=== PATIENT | male | born 1990 | race Caucasian/White ===

== ENCOUNTER 2019-11-16 23:16 | Emergency (ER) | payer MEDICARE, MEDICAID, OTHER, SELFPAY ==
[2019-11-16 23:25] VITALS: BP 110/63; PULSE 80; RESP 18; TEMP 36.8; O2SAT 97; BMI 38.9
--- NOTE | 2019-11-17 | XR_ITS ---
EXAMINATION: XR ANKLE, RIGHT CLINICAL INFORMATION: Ankle sprain COMPARISON: None TECHNIQUE: AP, lateral, and mortise views of the right ankle. FINDINGS: There is no fracture or dislocation. The ankle mortise is congruent. There is lateral soft tissue swelling. Possible small ankle joint effusion. IMPRESSION: Lateral soft tissue swelling. No fracture or malalignment.
--- NOTE | 2019-11-17 00:51 | ED.LOWEXIN ---
HPI - Extremity Injury (Lower) General Chief Complaint: Extremity Injury, Lower Stated Complaint: ANKLE INJURY WORK Time Seen by Provider: 11/17/19 00:45 Source: patient Mode of arrival: ambulatory History of Present Illness HPI Narrative: 28-year-old male states was at work and stepped in a hole and twisted ankle. Patient able to stand however is very painful. Pain to ankle without distal numbness. denies knee pain or hip pain MD complaint: ankle injury Onset (ago): hour(s) Injury: Right: ankle Type of Injury: eversion Severity scale (1-10): 4 Context: fall Related Data Allergies Allergy/AdvReac Type Severity Reaction Status Date / Time shrimp [SHRIMP] Allergy Severe SWELLING Unverified 10/24/19 16:26 DUST Allergy Unknown UNKNOWN Uncoded 10/24/19 16:26 shrimps Allergy Unknown Uncoded 08/15/16 00:00 Review of Systems Review of Systems: Constitutional : No Weight loss, No Fever, No Chills, No Night Sweats, No Fatigue, No Malaise ENT/Mouth : No Hearing loss, No Ear Pain, No Nasal Congestion, No Sinus Pain, No Hoarseness, No sore throat, No Rhinorrhea, No Swallowing Difficulty Eyes: No Eye Pain, No Swelling, No Redness, No Foreign Body, No Discharge, No Vision Changes Cardiovascular : No Chest Pain, No SOB, No Dyspnea on Exertion, No Orthopnea, No Edema, No Palpitations Respiratory : No Cough, No Sputum, No Wheezing, No Smoke Exposure, No Dyspnea Gastrointestinal : No Nausea, No Vomiting, No Diarrhea, No Constipation, No abdominal Pain, No Hematochezia, No Melena Genitourinary : no irregular bleeding, No Dysuria, No Urinary Frequency, No Hematuria, No Urinary Incontinence, No Urgency, No Flank Pain, No Urinary Flow Changes, No Hesitancy Musculoskeletal : positive joint pain, No Myalgias, positive Joint Swelling Skin : No Skin Lesions, No rash Neuro : No Weakness, No Numbness, No Paresthesias, No Loss of Consciousness, No Dizziness, No Headache Psych : No Anxiety/Panic, No Depression, No SI/HI/AH/VH, No Social Issues, Heme/Lymph: No Bruising, No Bleeding,No Lymphadenopathy Endocrine : No Polyuria, No Polydipsia, No Temperature Intolerance PMFSH Past Medical History Medical History Cardiac defibrillator in place Family History Family History (Updated 11/17/19 @ 00:52 by Alex Walker DO) Other Family history non-contributory Social History Social History (Updated 11/17/19 @ 00:52 by Alex Walker DO) Household Members: Family Advance Directives: No Advance Directives Information Provided: No Physical Exam Vital Signs: Vital Signs: Vital Signs Temp Pulse Resp BP Pulse Ox 11/16/19 23:25 98.3 F 80 18 110/63 97 Body Mass Index 38.9 vital signs reviewed Appearance: Alert. Oriented X3. No acute distress. Eyes: Pupils equal, round and reactive to light. ENT: Pharynx normal. Neck: Normal inspection. Neck supple. No lymph nodes noted. No crepitus CVS: Normal heart rate and rhythm. Pulses normal. Normal S1 and S2 Respiratory: No respiratory distress. Breath sounds normal. No Wheezing. No rales Abdomen: Soft and nontender. No rigidity. No distention. good BS x4 Skin: Skin warm and dry. Normal skin color. Normal skin turgor. Extremities: right ankle lower extremity edema. no deformity. Neurovascular intact to all extremities. No Lacerations. No Rash Neuro: Oriented X 3. No motor deficit. No sensory deficit. Moving all extermities. No slurred speech. Procedures Orthopedic Splinting/Casting Injury #1: Side: right Lower Extremity Injury Location: ankle Lower Extremity Immobilizer: posterior splint Other Orthopedic Equipment: crutches Additional Comments: post splint evaluation done by me neurovascular intact MDM - Extremity Injury (Lower) Medical Records Attestation: I reviewed the patient's medical records. Lab Data Attestation: I reviewed the patient's lab results. Discharge Plan Discharge Clinical Impression: Right ankle sprain Qualifiers: Encounter type: initial encounter Involved ligament of ankle: unspecified ligament Qualified Code(s): S93.401A - Sprain of unspecified ligament of right ankle, initial encounter Patient Disposition: Home, Self-Care Instructions: Ankle Sprain (ED) Additional Instructions: Thank you for visiting the emergency department today. If your symptoms worsen or do not resolve completely please return to the emergency department immediately or call 911. if he have any questions please call your primary care physician Referrals: [facility] [Primary Care Provider] - 2 days
[2019-11-17] MEDS: Acetaminophen 325 MG TABLET 650 MG PO (01:22)
[2019-11-17] MEDS: NaPROXEN 500 MG TABLET PO (01:23)
== END 2019-11-17 01:34 | disposition home or self-care (01) ==
PROVIDERS: Emergency Provider Emergency Medicine
DX: S93.401A Sprain of unspecified ligament of right ankle, initial encounter (principal); X50.1XXA Overexertion from prolonged static or awkward postures, initial encounter; Y93.01 Activity, walking, marching and hiking; Y92.9 Unspecified place or not applicable; Y99.0 Civilian activity done for income or pay
CPT/HCPCS: 29515; 73600; 99283

== ENCOUNTER 2019-12-25 12:00 | Outpatient (RCR) | payer OTHER, MEDICARE, MEDICAID, SELFPAY | END 2019-12-30 14:20 | disposition other institution (70) | LOC: HO.PT 12:00 | PROVIDERS: PCP Emergency Medicine; Visit Provider Emergency Medicine | DX: S93.401D Sprain of unspecified ligament of right ankle, subsequent encounter (principal); X58.XXXD Exposure to other specified factors, subsequent encounter; Y99.0 Civilian activity done for income or pay | CPT/HCPCS: 97110; 97112; 97161 ==

== ENCOUNTER 2020-07-13 19:56 | Emergency (ER) | payer MEDICARE, MEDICAID, SELFPAY | END 2020-07-13 20:55 | disposition left against medical advice (07) | PROVIDERS: Emergency Provider Emergency Medicine | DX: L03.019 Cellulitis of unspecified finger (principal) | CPT/HCPCS: 99281 ==

== ENCOUNTER 2021-10-23 20:31 | Inpatient (IN) | payer MEDICARE, MEDICAID, SELFPAY ==
--- NOTE | ~2021-10-23 | XR_ITS ---
EXAMINATION: CR CHEST CLINICAL INFORMATION: Shortness of breath. COMPARISON: Chest x-ray dated 10/23/2021. TECHNIQUE: AP upright portable view of the chest was obtained. FINDINGS: EKG leads overlie the chest. Right atrial pacer lead and right ventricular AICD lead are unchanged in position. The left pectoral pacemaker generator overlies the left mid lung, obscuring assessment. Lungs are symmetrically expanded without focal or acute pulmonary process seen. No effusion or pneumothorax. Bony structures are unremarkable. XR/XR chest 1V IMPRESSION: Unchanged appearance of the chest with no acute cardiopulmonary process seen.
--- NOTE | ~2021-10-23 | XR_ITS ---
EXAMINATION: XR CHEST CLINICAL INFORMATION: Chest pain. COMPARISON: Chest radiograph dated from 03/06/2017. TECHNIQUE: Frontal view of the chest was obtained. FINDINGS: Left-sided pacer/AICD in similar positioning to prior. Stable appearance of the cardiomediastinal silhouette. No focal airspace opacity, pleural effusion or pneumothorax. No acute osseous abnormalities. The visualized upper abdomen is within normal limits. XR/XR chest 1V IMPRESSION: No acute cardiopulmonary findings.
[2021-10-23 20:45] VITALS: BP 122/65; PULSE 80
[2021-10-23 20:46] VITALS: BP 106/70; PULSE 80; TEMP 37; BMI 35.9
--- NOTE | 2021-10-23 20:50 | ECG_ITS ---
Test Reason : PALPITATIONS Blood Pressure : / mmHG Vent. Rate : 080 BPM Atrial Rate : 080 BPM P-R Int : 260 ms QRS Dur : 098 ms QT Int : 406 ms P-R-T Axes : 042 -11 -35 degrees QTc Int : 468 ms Atrial-paced rhythm with prolonged AV conduction Minimal voltage criteria for LVH, may be normal variant ( R in aVL ) ST & T wave abnormality, consider anterolateral ischemia Prolonged QT Abnormal ECG When compared with ECG of 23-OCT-2021 20:56, No significant change was found Referred By: Kike Soler Electronically Signed By:KRISTINE JAMES
--- NOTE | 2021-10-23 21:05 | ED.ARRPALP ---
HPI - Arrhythmia/Palpitations General Chief Complaint: Arrhythmia/Palpitations Stated Complaint: PALPITATIONS Time Seen by Provider: 10/23/21 20:57 History of Present Illness HPI narrative: Patient is a 30-year-old male with a history of AICD. History of ventricular tachycardia. Baseline is on quinidine 324 mg 3 times a day. In addition to nadolol 80 mg twice a day. Patient has been missing his dose of Related Data Allergies Allergy/AdvReac Type Severity Reaction Status Date / Time shrimp [SHRIMP] Allergy Severe SWELLING Unverified 10/24/19 16:26 DUST Allergy Unknown UNKNOWN Uncoded 10/24/19 16:26 shrimps Allergy Unknown Anaphylaxis Uncoded 10/23/21 20:46 [facility] Past Medical History Medical History Cardiac defibrillator in place Family History Family History (Updated 11/17/19 @ 00:52 by Alex Walker DO) Other Family history non-contributory Social History Social History (Updated 11/17/19 @ 00:52 by Alex Walker DO) Household Members: Family Advance Directives: No Physical Exam Vital Signs: Vital Signs: Last Vital Signs Temp 98.6 F 10/23/21 20:46 BMI result Body Mass Index 35.9 Appearance: Alert. Oriented X3. No acute distress. Eyes: Pupils equal, round and reactive to light. ENT: Pharynx normal. Neck: Normal inspection. Neck supple. No lymph nodes noted. No crepitus CVS: Normal heart rate and rhythm. Pulses normal. Normal S1 and S2 Respiratory: No respiratory distress. Breath sounds normal. No Wheezing. No rales Abdomen: Soft and nontender. No rigidity. No distention. good BS x4 Skin: Skin warm and dry. Normal skin color. Normal skin turgor. Extremities: No lower extremity edema. Neurovascular intact to all extremities. No Lacerations. No Rash Neuro: Oriented X 3. No motor deficit. No sensory deficit. Moving all extermities. No slurred speech MDM - Arrhythmia/Palpitations MDM Narrative Medical decision making narrative: Patient's EKG showed a atrial paced pattern heart rate was 80 there is no acute ST segment elevation there is significant T-wave inversion over the septal and lateral leads. Patient claims that the defibrillator fired on him. Interrogated the defibrillatory myself. Case discussed with [facility]. Patient did have an episode of ventricular tachycardia heart rate up to 300. It shocked him once it was 2 days ago. Patient elected not to come to the emergency department bed to become compliant with his medications. Namely patient has skipped his middle dose of point edema for at least 2 weeks. The case was discussed with patient's primary EP kersey department supervisor at the [facility]. Dr. Kingsley is a fellow on-call. After discussion with the electrophysiology kersey department supervisor on-call, agree with having patient get monitored overnight as patient is grossly noncompliant. No adjustment in medication. Recommend patient to be compliant with his meds. Patient is in stable condition. Medical Records Attestation: I reviewed the patient's medical records. Lab Data Attestation: I reviewed the patient's lab results. Result diagrams: 10/23/21 21:14 10/23/21 21:56 Labs: Lab Results 10/23/21 10/23/21 10/23/21 Range/Units 21:14 21:14 21:56 WBC 7.8 (4.8-10.8) X10*3/uL RBC 4.70 (4.60-5.80) X10*6/uL Hgb 13.5 L (14.0-18.0) g/dl Hct 39.9 L (42.0-52.0) % MCV 84.9 (80.0-98.0) fL MCH 28.7 (27.0-33.0) pg MCHC 33.8 (31.0-36.0) g/dl RDW 13.8 (11.0-16.0) % Plt Count 211 (160-400) X10*3/uL MPV 10.2 (9.4-12.4) fL Immature Gran % (Auto) 0.3 (0.0-0.4) % Neut % (Auto) 53.7 (45-73) % Lymph % (Auto) 37.5 (20-40) % [place] % (Auto) 6.3 (2-11) % Eos % (Auto) 1.9 (0-4) % Baso % (Auto) 0.3 (0-2) % Lymph # (Auto) 2.9 (1.2-4.9) X10*3/uL [place] # (Auto) 0.5 (0.1-1.2) X10*3/uL Eos # (Auto) 0.2 (0.0-0.4) X10*3/uL Baso # (Auto) 0.0 (0.0-0.2) X10*3/uL Abs Immat Gran (auto) 0.02 (0.00-0.03) X10*3/uL Absolute Neuts (auto) 4.2 (2.0-8.3) x10*3/uL Absolute Nucleated RBC 0.000 (0.0-0.012) X10*3/uL Nucleated RBC % (auto) 0.0 (0.0-0.2) /100WBC Sodium 143 (135-145) mmol/L Potassium 3.9 (3.3-5.1) mmol/L Chloride 107 (96-108) mmol/L Carbon Dioxide 24 (22-29) mmol/L Anion Gap 16 (12-20) BUN 20 H (9-16) mg/dL Creatinine 0.81 (0.5-1.4) mg/dL Estim Creat Clear Calc 168.1 Estimated GFR > 60 Random Glucose 97 (60-115) mg/dL Calcium 9.4 (8.4-10.2) mg/dL Magnesium (1.6-2.6) mg/dL Troponin I High Sens < 3.5 (<3.5-35.0) ng/L 10/23/21 Range/Units 21:56 WBC (4.8-10.8) X10*3/uL RBC (4.60-5.80) X10*6/uL Hgb (14.0-18.0) g/dl Hct (42.0-52.0) % MCV (80.0-98.0) fL MCH (27.0-33.0) pg MCHC (31.0-36.0) g/dl RDW (11.0-16.0) % Plt Count (160-400) X10*3/uL MPV (9.4-12.4) fL Immature Gran % (Auto) (0.0-0.4) % Neut % (Auto) (45-73) % Lymph % (Auto) (20-40) % [place]lin % (Auto) (2-11) % Eos % (Auto) (0-4) % Baso % (Auto) (0-2) % Lymph # (Auto) (1.2-4.9) X10*3/uL [place] # (Auto) (0.1-1.2) X10*3/uL Eos # (Auto) (0.0-0.4) X10*3/uL Baso # (Auto) (0.0-0.2) X10*3/uL Abs Immat Gran (auto) (0.00-0.03) X10*3/uL Absolute Neuts (auto) (2.0-8.3) x10*3/uL Absolute Nucleated RBC (0.0-0.012) X10*3/uL Nucleated RBC % (auto) (0.0-0.2) /100WBC Sodium (135-145) mmol/L Potassium (3.3-5.1) mmol/L Chloride (96-108) mmol/L Carbon Dioxide (22-29) mmol/L Anion Gap (12-20) BUN (9-16) mg/dL Creatinine (0.5-1.4) mg/dL Estim Creat Clear Calc Estimated GFR Random Glucose (60-115) mg/dL Calcium 9.3 (8.4-10.2) mg/dL Magnesium 2.2 (1.6-2.6) mg/dL Troponin I High Sens (<3.5-35.0) ng/L Critical Care Time Critical Care Time Critical Care Time: Yes Total Critical Care Time: 40 Attestation: I have personally provided 40 minutes of critical care time exclusive of time spent on separately billable procedures. Time includes review of lab data, radiology results, discussion with consultants, and monitoring for potential decompensation. Interventions were performed as documented above Discharge Plan Discharge Clinical Impression: Ventricular tachycardia Patient Disposition: Admitted As Inpatient
[2021-10-23 21:20] LABS: MANUAL DIFF FLAG NO
[2021-10-23 21:22] LABS: Basophils Percent Auto 0.3 % (0-2); Eosinophils Absolute Auto 0.2 X10*3/uL (0.0-0.4); Eosinophils Percent Auto 1.9 % (0-4); Hematocrit 39.9 % (42.0-52.0); Hemoglobin 13.5 g/dl (14.0-18.0); Imm Gran Abs Auto 0.02 X10*3/uL (0.00-0.03); Imm Gran Pct Auto 0.3 % (0.0-0.4); Lymphocytes Absolute Auto 2.9 X10*3/uL (1.2-4.9); Lymphocytes Percent Auto 37.5 % (20-40); Mean Corpuscular HGB Conc 33.8 g/dl (31.0-36.0); Mean Corpuscular Hemoglobin 28.7 pg (27.0-33.0); Mean Corpuscular Volume 84.9 fL (80.0-98.0); Mean Platelet Volume 10.2 fL (9.4-12.4); Monocytes Absolute Auto 0.5 X10*3/uL (0.1-1.2); Monocytes Percent Auto 6.3 % (2-11); Neutrophils Absolute Auto 4.2 x10*3/uL (2.0-8.3); Neutrophils Percent Auto 53.7 % (45-73); Platelet Count 211 X10*3/uL (160-400); Red Cell Distribution Width 13.8 % (11.0-16.0); White Blood Count 7.8 X10*3/uL (4.8-10.8)
[2021-10-23 21:41] LABS: Troponin-I High Sensitivity < 3.5 ng/L (<3.5-35.0)
[2021-10-23 22:20] LABS: Anion Gap 16 (12-20); Blood Urea Nitrogen 20 mg/dL (9-16); Calcium 9.4 mg/dL (8.4-10.2); Carbon Dioxide 24 mmol/L (22-29); Chloride 107 mmol/L (96-108); Creatinine Clr Calc Pharmacy 168.1; Estimated Glomerular Filt Rate > 60; Glucose Random 97 mg/dL (60-115); Potassium 3.9 mmol/L (3.3-5.1); Sodium 143 mmol/L (135-145)
[2021-10-23 22:34] LABS: Calcium 9.3 mg/dL (8.4-10.2); Magnesium 2.2 mg/dL (1.6-2.6)
--- NOTE | 2021-10-23 22:57 | P.HPHOSP_ITS ---
History of Present Illness Date of Service: 10/23/21 Chief Complaint: Palpitations 30-year-old male with a past medical history of V-tach status post AICD, tobacco dependence presented to the hospital today with a chief complaint of palpitations. Patient reports that for the past 2 days he has been having palpitations. Mentions 2 days ago he had a shock from the AICD with resultant pain and dizziness. Since then he has been having intermittent episodes of dizziness. Mentioned that he was busy at his work hence did not come to the hospital. Today he got a call from the [facility] and told him to go to the ER for further evaluation. Patient denies any chest pain or palpitations the time of entry. Denies any fever chills cough or sputum production. Denies any nausea vomiting. Patient mentions that over the past 2 weeks he has been taking is quinidine b.i.d. instead of t.i.d.. Also been taking his nadolol. Mentions he smokes about a pack of cigarettes every day. Review of all other systems is negative except mentioned above ER course: Per ER team patient currently has pacer rhythm with heart rate in 80s; labs were benign; interrogated the pacemaker, spoke to bath at [facility]-mentioned that patient heart rate was running in 300s-V-tach when he had the shock. Discussed with Dr. Bain at [facility] patient's primary migratory worker who suggested that likely in the setting of poor compliance with his medications, no acute intervention or transfer needed this time, recommended admission for observation. [facility] Medical History Cardiac defibrillator in place Family History (Updated 11/17/19 @ 00:52 by Alex Walker DO) Other Family history non-contributory Social History (Updated 11/17/19 @ 00:52 by Alex Walker DO) Household Members: Family Advance Directives: No Meds Allergies Allergy/AdvReac Type Severity Reaction Status Date / Time shrimp [SHRIMP] Allergy Severe SWELLING Verified 10/24/21 05:21 DUST Allergy Unknown UNKNOWN Uncoded 10/24/19 16:26 shrimps Allergy Unknown Anaphylaxis Uncoded 10/23/21 20:46 Home Medications Medication Instructions Recorded Confirmed Last Taken Type lorazepam 1 mg tablet 1 tab PO DAILY PRN Anxiety 10/23/21 10/23/21 Unknown Hist ory nadolol 80 mg tablet 1 tab PO BID 10/23/21 10/23/21 Unknown History quinidine gluconate 324 mg 1 tab PO TID 10/23/21 10/23/21 Unknown History tablet,extended release Physical Exam Vital Signs and Narrative: Vital Signs: Last Vital Signs Temp 98.6 F 10/23/21 20:46 BMI result Body Mass Index 35.9 Gen: Appears be in no acute distress HEENT: NCAT, Moist mucosa. Pulmonary: Vesicular breath sounds, fair air entry CVS: Normal S1-S2 Abdomen: BS+, Soft, Nontender Extremities: Warm well perfused Neuro: Alert and awake. Results Labs CBC and Chem 7: 10/24/21 05:37 10/24/21 05:37 Labs: Laboratory Results - last 24 hr 10/23/21 10/23/21 10/23/21 21:14 21:56 21:56 MCV 84.9 MCH 28.7 MCHC 33.8 RDW 13.8 Plt Count 211 MPV 10.2 Immature Gran % (Auto) 0.3 Neut % (Auto) 53.7 Lymph % (Auto) 37.5 [place] % (Auto) 6.3 Eos % (Auto) 1.9 Baso % (Auto) 0.3 Lymph # (Auto) 2.9 [place] # (Auto) 0.5 Eos # (Auto) 0.2 Baso # (Auto) 0.0 Abs Immat Gran (auto) 0.02 Absolute Neuts (auto) 4.2 Absolute Nucleated RBC 0.000 Nucleated RBC % (auto) 0.0 Anion Gap 16 Estim Creat Clear Calc 168.1 Estimated GFR > 60 Random Glucose 97 Calcium 9.4 9.3 Magnesium 2.2 Assessment and Plan (1) Ventricular tachycardia: Status: Acute Plan 30-year-old male with a past medical history of V-tach status post AICD, tobacco dependence presented to the hospital today with a chief complaint of palpita tions. Noted to have V-tach status post AICD shock about 2 days ago. Admitted for observation. Ventricular tachycardia: Patient had shock from AICD about 2 days ago. Currently asymptomatic. Rate controlled Patient heart rate was in 300s with V-tach when he had the shock. Presumed to be secondary to medication noncompliance. Dr. Bain from [facility] recommended admission for observation, no acute intervention or transfer recommended. Will continue open Quinidine TID. and nadolol. Cardiology consult Telemetry SOB: 6:45AM 10/24/21: pr complained of SOB; ordered Xopenex, CXR; cycle enzymes. HR in low 100s- paced. Tobacco dependence: counselled on smoking cessation DVT prophylaxis: Lovenox Code status: Full code Quality Stroke Does the patient have a stroke diagnosis?: No VTE Prior VTE?: No VTE Risk Level:: Medical - moderate - high VTE Device Contraindication: Treatment Not Indicated VTE Drug Contraindication: N/A - Med Ordered
[2021-10-23 23:31] VITALS: BP 99/66; PULSE 80; RESP 20; O2SAT 91
[2021-10-23 23:35] VITALS: BP 103/60
[2021-10-24] VITALS (8 sets, daily range): BP systolic 104–129; BP diastolic 55–89; PULSE 80–105; RESP 13–20; O2SAT 93–98
--- NOTE | 2021-10-24 | ECG_ITS ---
Test Reason : CHEST PAIN /SOB/VTECH Blood Pressure : / mmHG Vent. Rate : 080 BPM Atrial Rate : 080 BPM P-R Int : 238 ms QRS Dur : 102 ms QT Int : 400 ms P-R-T Axes : 058 -17 -31 degrees QTc Int : 461 ms Atrial-paced rhythm with prolonged AV conduction Minimal voltage criteria for LVH, may be normal variant ( R in aVL ) ST & T wave abnormality, consider anterolateral ischemia Prolonged QT Abnormal ECG When compared with ECG of 24-OCT-2021 05:56, Premature ventricular complexes are no longer Present Referred By: Joaquin Dave Electronically Signed By:KRISTINE JAMES
--- NOTE | 2021-10-24 | ECG_ITS ---
Test Reason : CHEST PAIN Blood Pressure : / mmHG Vent. Rate : 080 BPM Atrial Rate : 080 BPM P-R Int : 212 ms QRS Dur : 096 ms QT Int : 406 ms P-R-T Axes : 071 -18 -38 degrees QTc Int : 468 ms Atrial-paced rhythm with prolonged AV conduction Minimal voltage criteria for LVH, may be normal variant ( R in aVL ) ST & T wave abnormality, consider anterolateral ischemia Prolonged QT Abnormal ECG When compared with ECG of 09-MAR-2017 13:22, No significant change was found Referred By: Kike Soler Electronically Signed By:KRISTINE JAMES
--- NOTE | 2021-10-24 | ECG_ITS ---
Test Reason : PALPITATION Blood Pressure : / mmHG Vent. Rate : 101 BPM Atrial Rate : 079 BPM P-R Int : 236 ms QRS Dur : 100 ms QT Int : 394 ms P-R-T Axes : 017 -18 -39 degrees QTc Int : 510 ms Atrial-paced rhythm with prolonged AV conduction with frequent , and consecutive Premature ventricular complexes Minimal voltage criteria for LVH, may be normal variant ( R in aVL ) Marked ST abnormality, possible inferior subendocardial injury Abnormal ECG When compared with ECG of 24-OCT-2021 05:40, Premature ventricular complexes are now Present Referred By: Kike Soler Electronically Signed By:KRISTINE JAMES
--- NOTE | 2021-10-24 05:43 | PC.NURSE ---
Addendum entered by Marija Murcia RN 10/24/21 06:05: Patient took his own Quinidine as it is not stocked at the hospital. aware. Original Note: Patient called staff to alert them he was having Palpitations. Telle review showed frequent couplet PVC's. EKG obtained and Hospitalist Ryder aware via tiger text. EKG scanned for viewing. See MAR for orders.
[2021-10-24 05:52] LABS: COVID-19 Test Negative (Negative)
[2021-10-24 05:55] LABS: Basophils Percent Auto 0.3 % (0-2); Eosinophils Absolute Auto 0.2 X10*3/uL (0.0-0.4); Eosinophils Percent Auto 2.4 % (0-4); Hematocrit 40.9 % (42.0-52.0); Hemoglobin 13.6 g/dl (14.0-18.0); Imm Gran Abs Auto 0.02 X10*3/uL (0.00-0.03); Imm Gran Pct Auto 0.3 % (0.0-0.4); Lymphocytes Absolute Auto 2.5 X10*3/uL (1.2-4.9); Lymphocytes Percent Auto 37.3 % (20-40); MANUAL DIFF FLAG NO; Mean Corpuscular HGB Conc 33.3 g/dl (31.0-36.0); Mean Corpuscular Hemoglobin 28.8 pg (27.0-33.0); Mean Corpuscular Volume 86.7 fL (80.0-98.0); Mean Platelet Volume 10.1 fL (9.4-12.4); Monocytes Absolute Auto 0.6 X10*3/uL (0.1-1.2); Monocytes Percent Auto 9.4 % (2-11); Neutrophils Absolute Auto 3.3 x10*3/uL (2.0-8.3); Neutrophils Percent Auto 50.3 % (45-73); Platelet Count 185 X10*3/uL (160-400); Red Blood Count 4.72 X10*6/uL (4.60-5.80); White Blood Count 6.6 X10*3/uL (4.8-10.8)
[2021-10-24] MEDS: 0.9 % Sodium Chloride Flush 3 ML SYRINGE IVFLUSH ×2 (06:03→09:13)
[2021-10-24] MEDS: Enoxaparin Sodium 40 MG/0.4 ML SYRINGE SUBCUT (06:03)
[2021-10-24] MEDS: LORazepam 1 MG TABLET PO (06:03)
[2021-10-24 06:09] LABS: Anion Gap 15 (12-20); Blood Urea Nitrogen 18 mg/dL (9-16); Calcium 9.1 mg/dL (8.4-10.2); Carbon Dioxide 25 mmol/L (22-29); Chloride 107 mmol/L (96-108); Creatinine Clr Calc Pharmacy 154.7; Estimated Glomerular Filt Rate > 60; Glucose Random 96 mg/dL (60-115); Sodium 143 mmol/L (135-145)
[2021-10-24] MEDS: nadoloL 20 MG TABLET 80 MG PO (06:11)
--- NOTE | 2021-10-24 06:47 | PC.NURSE ---
Dr. Urbina in to evaluate patient
--- NOTE | 2021-10-24 07:34 | PC.NURSE ---
pt called for this rn to his room. reports what are y'all going to do about my rhythm because if youre not going to do anything about this I'm going to sign out AMA and just go to [facility] where they will do something about it . made aware that pt is upset and reports desire to sign out AMA. pt awake and alert x4, fiance at bedside. pts machine deicer element winder displaying a paced rhythm with PVC,s and infrequent 2-3 beats of vtach. pt took his home med Quinidine that was ok'd by overnight MD. pt stated to this jingle writer if you don't get a dr here in 30 mins I'm leaving, we haven't seen cardiology or [facility] or a dr . pt refusing all care/assessments until he sees a dr. refusing his lab draw troponin, vitals and morning POC. tiger connect sent to dr. renee regarding pts statements and current EKG report as stated above. per dr. renee, he will be down as soon as he can.
--- NOTE | 2021-10-24 07:35 | PC.NURSE ---
patient refused poc,vital signs.patient states''nobody is touching me till i see a manager construction''
[2021-10-24 07:44] LABS: Troponin-I High Sensitivity < 3.5 ng/L (<3.5-35.0)
--- NOTE | 2021-10-24 07:51 | PC.NURSE ---
Verbal order by Dr. Wolf ok for pt to take his own home med Quinidine 324mg without pharmacy verification as the pill bottle the meds initially came in got broken and is no longer accessible. will call pharmacy to notify.
[2021-10-24] MEDS: Amiodarone/Dextrose 150 MG/100 ML PLAST..BAG 600 MG IV (09:13)
--- NOTE | 2021-10-24 09:32 | PHA.MEDREC ---
Pharmacy Consult ? Medication Reconciliation Pharmacy has completed the medication reconciliation.
--- NOTE | 2021-10-24 09:35 | PC.NURSE ---
pt reports feeling light headed and dizzy, tiger connect sent to dr. renee who started to stop the gtt. pt only received 150mg/100ml bolus dose, pt did receive the whole dose. pt dr renee, hold second gtt until cardiology dr. zambrano sees pt.
--- NOTE | 2021-10-24 11:00 | PC.NURSE ---
sheath down to see pt. pt not happy with plan moving forward set up by [facility] [place] [place] team. pt yelling at MD, get the fuck out of my room before I knock your teeth into the back of your skull . pt wanting his dr at [facility] called and to transfer otherwise he is going to sign out AMA. informed pt that we will call his drs. pt continues to be agitated, yelling. he pulled all his cardiac leads off and started pacing the room. at this time security was called as pt made multiple threats toward the MD. pts fiance then yelled for help as pt had dropped to the floor and was yelling that he was going to get shocked. pt did get shocked by his pacemaker at 1052. pt assisted back into bed, MD zambrano aware of this, pt placed back on the electronic device monitor, vitals taken. BP 107/63 (74 MAP), HR 80 paced, 94% O2 placed on 2L NC for comfort, RR 15. verbally de-escalated pt. plan to call [facility] and attempt transport, plan to start amiodarone gtt per APR
[2021-10-24] MEDS: Amiodarone HCL 900 MG in 0.9 % Sodium Chloride 500 ML 34.53 MG IVCONT (11:06)
[2021-10-24] MEDS: Lidocaine HCl/PF 100 MG/5 ML SYRINGE 113.398 MG IV (11:55)
[2021-10-24] MEDS: Lidocaine HCl/D5W 2 GM/250 ML IV.SOLN IVCONT (11:59)
[2021-10-24] MEDS: Magnesium Sulfate/H2O 2 GM/50 ML PIGGYBACK IV (12:08)
--- NOTE | 2021-10-24 12:10 | PC.NURSE ---
Amiodarone gtt started per APR, within 5 min of gtt running pt became dizzy, lightheaded, SOB and bedside monitor displayed multiple runs of v-tach with increased frequencey. this sql report writer stopped the amiodarone, snet a tiger connect to Dr. Acevedo who ordered to stop the amiodarone gtt, start lidocaine per APR as a bolus and then gtt. pt after lidocaine started reported sx resolving. maintained 2l NC for oxygen comfort. vitals stable at this time, HR paced in the 80s, SaO2 (on 2L) 98%, RR 17, BP 113/66. Dr. Wolf and Dr. Dave at bedside to evaluate pt. [facility] has accepted the pt and plan to transfer.
--- NOTE | 2021-10-24 12:30 | P.CONCA_ITS ---
History of Present Illness History of Present Illness Date of Service: 10/24/21 Requesting physician: John Wolf Consult reason: other (Ventricular arrhythmias) Chief complaint: V tach Narrative: I was consulted to see Ty who is very belligerent and threatening to me. Patient is a 30-year-old male with prior history of ICD placement, Medtronic dual-chamber. He does not know exactly why. Patient said this was after he had his 1st event at age of 14 when he had a sudden cardiac that. Since then he has had follow-up with Dr. Ki Lucio at [facility]. He has has his device monitor through his office. He most recently was maintain on quinidine 324 mg q.8 hours. However he said he has been forgetful due to stress and not been taking most of his afternoon doses recently. Two days ago he felt like his arrhythmia burden increase any felt his device discharge. He said he feels very uncomfortable with this. His device was interrogated yesterday remotely. Do not have record when I interrogated his device about the last episode that happened couple days ago. However he came to the emergency room after talking to them and was told that today as resume his quinidine. However he continued to have significant symptoms and he was noted to have frequent short runs of polymorphic ventricular tachycardia as well as frequent PVCs with R on T phenomenon. He would not listen to any recommendations in the ED. He was very belligerent and wanted his cardiology team to be called at [facility]. We try to pacify him including myself hours trying to get history and he got more belligerent and physically threatening. He was initially on my recommended start on IV amiodarone drip and was given a bolus but felt more dizzy. He continued to have short runs of polymorphic runs. His potassium is 4 and his ma gnesium is 2.2. He has no obvious signs of ischemia. EKG shows T-wave inversion in anterior leads and may be epsilon wave in lead 2. Not sure if he has prior history of arrhythmogenic right ventricular cardiomyopathy although EKG is not changed from before. His blood pressure is stable. Respiratory status is stable. However he is very symptomatic with his PVCs and short runs. After interviewing with him he got again very unhappy and angry and disconnected himself from the monitor and then had another event very felt his defibrillator went off and he went to the ground. We could not see that because he had disconnected himself of the monitor however he had episode at 10:52 this morning very and into ventricular fibrillation did get another shock. He was then started on amiodarone drip after much convincing and then continue to have symptoms of dizziness and more frequent ventricular arrhythmias. We therefore discontinue the amiodarone and given a bolus of lidocaine 1 milligram/kg and start him on a drip at 2 mg a minute. Since then his ventricular arrhythmias have completely subsided but he says he feels high. He is also getting a dose of magnesium IV 2 g. Currently is feeling much improved and better and less anxious. Review of Systems Constitutional: Constitutional: Reports no additional constitutional complaints Eyes: Eyes: Reports no additional eye complaints Cardiovascular: Cardiovascular: Denies chest pain, Reports syncope, Reports lightheadedness, Reports palpitations, Denies dyspnea and Reports other (ICD discharge) Respiratory: Respiratory: Reports no additional respiratory complaints and Denies dyspnea Gastrointestinal: Gastrointestinal: Reports no additional gastrointestinal complaints Genitourinary: Genitourinary: Reports no additional male genitourinary complaints Musculoskeletal: Musculoskeletal: Reports no additional musculoskeletal complaints Integumentary/Breasts: Skin/Breast: Reports system reviewed and no additional complaints, except as docu Neurologic: Reports system reviewed and no additional complaints, except as documented and Reports syncope Psychiatric: Psychiatric: Reports no additional psychiatric complaints Endocrine: Endocrine: Reports no additional endocrine complaints and Reports palpitations Hematologic/Lymphatic: Hematologic/Lymphatic: Reports no additional hematologic/lymphatic complaints Allergic/Immunologic: Allergic/Immunologic: Reports no additional allergic/immunologic complaints [facility] Past Medical History Medical History Cardiac defibrillator in place Family History Family History Other Family history non-contributory Social History Social History Household Members: Family Advance Directives: No Meds Allergies Allergy/AdvReac Type Severity Reaction Status Date / Time shrimp [SHRIMP] Allergy Severe SWELLING Verified 10/24/21 05:21 DUST Allergy Unknown UNKNOWN Uncoded 10/24/19 16:26 shrimps Allergy Unknown Anaphylaxis Uncoded 10/23/21 20:46 Active Medications: Current Medications Acetaminophen (Acetaminophen 325 Mg Tablet) 650 mg PO Q6H PRN PRN Reason: Pain, Mild (Pain Scale 1-3) Enoxaparin Sodium (Enoxaparin Sodium 40 Mg/0.4 Ml Syringe) 40 mg SUBCUT Q24H [facility] Last Admin: 10/24/21 06:03 Dose: 40 mg Amiodarone HCl 900 mg/ Sodium (Chloride) 518 mls @ 34.533 mls/hr IVCONT .Q15H1M [facility]; Protocol Last Infusion: 10/24/21 11:58 Dose: 0 mg/min, 0 mls/hr Lidocaine HCl/Dextrose (Lidocaine Hcl/D5w) 2 gm in 250 mls @ 15 mls/hr IVCONT .[id number] [facility]; Protocol Last Admin: 10/24/21 11:59 Dose: 2 mg/min, 15 mls/hr Magnesium Sulfate (Magnesium Sulfate/H2o) 2 gm in 50 mls @ 25 mls/hr IV ONCE ONE Stop: 10/24/21 13:37 Last Admin: 10/24/21 12:08 Dose: 25 mls/hr Levalbuterol HCl (Levalbuterol Hcl 1.25 Mg/0.5 Ml Vial.Neb) 1.25 mg INHALE Q3H PRN PRN Reason: sob Lidocaine HCl (Lidocaine Hcl/Pf 100 Mg/5 Ml Syringe) 113.398 mg 1 mg/kg (113.398 mg) IV Q15M PRN PRN Reason: Heart Rate >300 Last Admin: 10/24/21 11:55 Dose: 113.398 mg Lorazepam (Lorazepam 1 Mg Tablet) 1 mg PO DAILY PRN PRN Reason: Anxiety Last Admin: 10/24/21 06:03 Dose: 1 mg Melatonin (Melatonin 3 Mg Tablet) 6 mg PO BEDTIME PRN PRN Reason: Insomnia Nadolol (Nadolol 20 Mg Tablet) 80 mg PO BID [facility] Last Admin: 10/24/21 06:11 Dose: 80 mg Senna (Sennosides 8.6 Mg Tablet) 17.2 mg PO BEDTIME PRN PRN Reason: Constipation Sodium Chloride (0.9 % Sodium Chloride Flush 3 Ml Syringe) 3 ml IVFLUSH QSHIFT [facility] Last Admin: 10/24/21 09:13 Dose: 3 ml Home Medications Medication Instructions Recorded Confirmed Last Taken Type lorazepam 1 mg tablet 1 tab PO DAILY PRN Anxiety 10/23/21 10/23/21 10/24/21 History nadolol 80 mg tablet 1 tab PO BID 10/23/21 10/23/21 10/24/21 History quinidine gluconate 324 mg 1 tab PO TID 10/23/21 10/23/21 10/24/21 History tablet,extended release Physical Exam Vital Signs: Vital Signs: Last Vital Signs Temp 98.6 F 10/23/21 20:46 Pulse 80 10/24/21 11:29 Resp 20 10/24/21 11:29 BP 111/60 10/24/21 11:29 Pulse Ox 94 10/24/21 11:29 O2 Del Method 10/24/21 11:29 BMI result Body Mass Index 35.9 Patient did not a lot of me to examine him Objective Labs and Meds Result diagrams: 10/24/21 05:37 10/24/21 05:37 Lab results: Laboratory Results - last 24 hr 10/23/21 10/23/21 10/23/21 21:14 21:14 21:56 WBC 7.8 RBC 4.70 Hgb 13.5 L Hct 39.9 L MCV 84.9 MCH 28.7 MCHC 33.8 RDW 13.8 Plt Count 211 MPV 10.2 Immature Gran % (Auto) 0.3 Neut % (Auto) 53.7 Lymph % (Auto) 37.5 Cal[place]oun % (Auto) 6.3 Eos % (Auto) 1.9 Baso % (Auto) 0.3 Lymph # (Auto) 2.9 [place]oun # (Auto) 0.5 Eos # (Auto) 0.2 Baso # (Auto) 0.0 Abs Immat Gran (auto) 0.02 Absolute Neuts (auto) 4.2 Absolute Nucleated RBC 0.000 Nucleated RBC % (auto) 0.0 Sodium 143 Potassium 3.9 Chloride 107 Carbon Dioxide 24 Anion Gap 16 BUN 20 H Creatinine 0.81 Estim Creat Clear Calc 168.1 Estimated GFR > 60 Random Glucose 97 Calcium 9.4 Magnesium Troponin I High Sens < 3.5 COVID-19 (TAMMI) COVID-19 Clin Com 10/23/21 10/24/21 10/24/21 21:56 05:33 05:37 WBC 6.6 RBC 4.72 Hgb 13.6 L Hct 40.9 L MCV 86.7 MCH 28.8 MCHC 33.3 RDW 14.0 Plt Count 185 MPV 10.1 Immature Gran % (Auto) 0.3 Neut % (Auto) 50.3 Lymph % (Auto) 37.3 [place]oun % (Auto) 9.4 Eos % (Auto) 2.4 Baso % (Auto) 0.3 Lymph # (Auto) 2.5 [place]oun # (Auto) 0.6 Eos # (Auto) 0.2 Baso # (Auto) 0.0 Abs Immat Gran (auto) 0.02 Absolute Neuts (auto) 3.3 Absolute Nucleated RBC 0.000 Nucleated RBC % (auto) 0.0 Sodium Potassium Chloride Carbon Dioxide Anion Gap BUN Creatinine Estim Creat Clear Calc Estimated GFR Random Glucose Calcium 9.3 Magnesium 2.2 Troponin I High Sens COVID-19 (TAMMI) Negative COVID-19 Clin Com See Note 10/24/21 10/24/21 05:37 05:37 WBC RBC Hgb Hct MCV MCH MCHC RDW Plt Count MPV Immature Gran % (Auto) Neut % (Auto) Lymph % (Auto) [place]oun % (Auto) Eos % (Auto) Baso % (Auto) Lymph # (Auto) [place] # (Auto) Eos # (Auto) Baso # (Auto) Abs Immat Gran (auto) Absolute Neuts (auto) Absolute Nucleated RBC Nucleated RBC % (auto) Sodium 143 Potassium 4.0 Chloride 107 Carbon Dioxide 25 Anion Gap 15 BUN 18 H Creatinine 0.88 Estim Creat Clear Calc 154.7 Estimated GFR > 60 Random Glucose 96 Calcium 9.1 Magnesium Troponin I High Sens < 3.5 COVID-19 (TAMMI) COVID-19 Clin Com ICD interrogation: Dual-chamber Medtronic ICD in place programmed at 80 beats per minute in DDDR mode. One episode of sustained ventricular arrhythmias noted at 10:52 this morning. All the other arrhythmia episode memory was deleted with last i nterrogation yesterday 10/23. Atrial ventricular sensing is adequate. Atrial and ventricular pacing thresholds adequate. Pacing and shock lead impedance is stable. Battery life is at 20 months. ECG Pacemaker function: other Imaging Radiologist's impression: Impressions Chest X-Ray 10/23/21 21:21 IMPRESSION: No acute cardiopulmonary findings. Chest X-Ray 10/24/21 11:14 IMPRESSION: Unchanged appearance of the chest with no acute cardiopulmonary process seen. Assessment and Plan (1) Sustained ventricular tachycardia: Status: Acute Sustained ventricular tachycardia with recurrent device discharged in this young man with underlying dual-chamber defibrillator for unclear underlying cardiac etiology. Question ARVC question channelopathy. Patient follows with EPS at [facility] and wants to consult with them. I have discussed with Dr. Javier who is covering CCU at [facility] and has accepted the patient to the S service and will consult with EPS internally and decide further treatment option. Patient responded best to IV lidocaine drip with completely stop ventricular arrhythmias. Because he was having some neurologic symptoms we reduced his drip to 1 mg a minute and then had another sustained ventricular arrhythmia just now for which she received ICD shock. Patient is not belligerent or anxious at this point time. Patient is receiving magnesium sulfate bolus as well as Lopressor 5 mg. Patient currently in ventricular tachycardia storm with 3 shocks in the last 48 hours. Having frequent unstable ventricular arrhythmias. Will rebolus him with lidocaine at 0.5 mg per kg and then increase his maintenance drip at 2 mg a minute. If he continues to have ventricular arrhythmias will need to add amiodarone again to his drip. Continue to provide sedation and antianxiety treatment. IV Lopressor. Finish with magnesium loading. Transferred to [facility] as soon as possible. Arrangements have been made. Prognosis is guarded. Greater than 90 minutes of critical time was spent with managing this patient. Procedures Date of Service Date of Service: 10/24/21
--- NOTE | 2021-10-24 12:52 | PC.NURSE ---
pt on Lidocaine gtt at 1mg/min - pt wanted to rest. at approx 1252 pt HR spiked to 285 in vtach, pt was shocked by his pacemaker. dr zambrano and dr renee made aware, verbal order from dr. zambrano for Lidocaine 0.5 mg/kg bolus and to increase the Lidocaine gtt back up to 2mg/min. (Reinier BARBER ordered in APR). pt anxious but appropriate at this time, vitals stable, awaiting accepting doc and room number from [facility] to [facility] er transport.
[2021-10-24] MEDS: Lidocaine HCl/PF 100 MG/5 ML SYRINGE 56.699 MG IV (12:57)
--- NOTE | 2021-10-24 12:59 | PM.DS ---
DS: Providers Provider Date of Service: 10/24/21 Date of admission: 10/23/21 22:55 Date of discharge: 10/24/21 Primary care physician: [facility] Consults: 10/23/21 23:03 Consult to Cardiology Routine Consulting Provider: Joaquin Dave Reason for consultation: V tach DS: Diagnosis Discharge Diagnosis (1) Sustained ventricular tachycardia: Status: Acute DS: Summary Hospital Course Hospital Course: Patient is a 30-year-old male with prior history of ICD placement, Medtronic dual-chamber.? He does not know exactly why.? Patient said this was after he had his 1st event at age of 14 when he had a sudden cardiac event.? Since then he has had follow-up with Dr. Ki Lucio at [facility].? He has has his device monitor through his office.? He most recently was maintain on quinidine 324 mg q.8 hours.? However he said he has been forgetful due to stress and not been taking most of his afternoon doses recently.? Two days ago he felt like his arrhythmia burden increase any felt his device discharge. Called by [employer] secondary to short runs of polymorphic VT as well as frequent PVCs with RN T phenomenon. Seen by Cardiology this a.m.; recommended amiodarone however patient did not tolerate amiodarone drip. Lidocaine was bolused and started with complete resolution of ventricular tachycardia however patient did develop some dizziness and ?felt stoned . He did get 2 discharges from his device this a.m. which prompted Dr. Dave (cardiology) to arrange transport to [facility]. He will be transferred for further treat definitive treatment Time Spent with Patient Time attestation: Total time spent providing and/or coordinating discharge services: Discharge coordination time: Greater than 30 minutes Quality: Safe Use of Opioids Does Pt have an Active Cancer Diagnosis on the Problem List?: No Quality: Stroke Does the patient have a stroke diagnosis?: No Physical Exam Vital Signs: Vital Signs: Last Vital Signs Temp 98.6 F 10/23/21 20:46 Pulse 80 10/24/21 11:29 Resp 20 10/24/21 11:29 BP 111/60 10/24/21 11:29 Pulse Ox 94 10/24/21 11:29 O2 Del Method 10/24/21 11:29 BMI result Body Mass Index 35.9 Const: Other: Awake alert oriented x3 no acute distress Resp: Other: Clear to auscultation bilaterally no rales rhonchi or wheezes Cardio: Other: No S4; positive S1-S2; no S3 murmurs rubs or gallops GI: Other: Soft nontender nondistended normoactive bowel sounds Extrem: Other: No edema bilaterally DS: Data Data Completed and Pending Labs on day of discharge: Laboratory Results - last 24 hr 10/23/21 10/23/21 10/23/21 21:14 21:14 21:56 WBC 7.8 RBC 4.70 Hgb 13.5 L Hct 39.9 L MCV 84.9 MCH 28.7 MCHC 33.8 RDW 13.8 Plt Count 211 MPV 10.2 Immature Gran % (Auto) 0.3 Neut % (Auto) 53.7 Lymph % (Auto) 37.5 [place] % (Auto) 6.3 Eos % (Auto) 1.9 Baso % (Auto) 0.3 Lymph # (Auto) 2.9 [place] # (Auto) 0.5 Eos # (Auto) 0.2 Baso # (Auto) 0.0 Abs Immat Gran (auto) 0.02 Absolute Neuts (auto) 4.2 Absolute Nucleated RBC 0.000 Nucleated RBC % (auto) 0.0 Sodium 143 Potassium 3.9 Chloride 107 Carbon Dioxide 24 Anion Gap 16 BUN 20 H Creatinine 0.81 Estim Creat Clear Calc 168.1 Estimated GFR > 60 Random Glucose 97 Calcium 9.4 Magnesium Troponin I High Sens < 3.5 COVID-19 (TAMMI) COVID-19 Clin Com 10/23/21 10/24/21 10/24/21 21:56 05:33 05:37 WBC 6.6 RBC 4.72 Hgb 13.6 L Hct 40.9 L MCV 86.7 MCH 28.8 MCHC 33.3 RDW 14.0 Plt Count 185 MPV 10.1 Immature Gran % (Auto) 0.3 Neut % (Auto) 50.3 Lymph % (Auto) 37.3 [place] % (Auto) 9.4 Eos % (Auto) 2.4 Baso % (Auto) 0.3 Lymph # (Auto) 2.5 [place] # (Auto) 0.6 Eos # (Auto) 0.2 Baso # (Auto) 0.0 Abs Immat Gran (auto) 0.02 Absolute Neuts (auto) 3.3 Absolute Nucleated RBC 0.000 Nucleated RBC % (auto) 0.0 Sodium Potassium Chloride Carbon Dioxide Anion Gap BUN Creatinine Estim Creat Clear Calc Estimated GFR Random Glucose Calcium 9.3 Magnesium 2.2 Troponin I High Sens COVID-19 (TAMMI) Negative COVID-19 Clin Com See Note 10/24/21 10/24/21 05:37 05:37 WBC RBC Hgb Hct MCV MCH MCHC RDW Plt Count MPV Immature Gran % (Auto) Neut % (Auto) Lymph % (Auto) [place] % (Auto) Eos % (Auto) Baso % (Auto) Lymph # (Auto) [place] # (Auto) Eos # (Auto) Baso # (Auto) Abs Immat Gran (auto) Absolute Neuts (auto) Absolute Nucleated RBC Nucleated RBC % (auto) Sodium 143 Potassium 4.0 Chloride 107 Carbon Dioxide 25 Anion Gap 15 BUN 18 H Creatinine 0.88 Estim Creat Clear Calc 154.7 Estimated GFR > 60 Random Glucose 96 Calcium 9.1 Magnesium Troponin I High Sens < 3.5 COVID-19 (TAMMI) COVID-19 Clin Com Discharge Plan Discharge Patient Disposition: Xfer Acute [facility] Discharge Diagnosis: Ventricular Tachycardia Referrals: [facility] [Primary Care Provider] - 1 Week Discharge Medications: New lidocaine in 5 % dextrose (PF) 8 mg/mL (0.8 %) Parenteral Solution 2,000 mg continuous IV infusion .[id number] Qty: 6000 0RF lidocaine (PF) 100 mg/5 mL (2 %) Syringe 113.398 mg IV Q15M PRN (Reason: Heart Rate >300) Qty: 50 0RF Continued nadolol 80 mg tablet 1 tab PO BID quinidine gluconate 324 mg tablet extended release 1 tab PO TID lorazepam 1 mg tablet 1 tab PO DAILY PRN (Reason: Anxiety) Discharge Orders: Discharge Order (Routine); Ordered 10/24/21 Ordered By: John Wolf Diet: Advance to usual diet Activity on Discharge: As tolerated Stand Alone Forms: Patient Portal Discharge page Care Plan Goals: Transfer to [facility] Concerns: Continue lidocaine drip during discharge Plan of Treatment: As per receiving facility Assessment: See discharge summary
[2021-10-24 14:48] LABS: Glucose, Whole Blood 120 mg/dL (60-115)
--- NOTE | 2021-10-24 14:57 | PC.NURSE ---
1450 [facility] on scene to take pt.
--- NOTE | 2021-10-24 14:57 | PC.NURSE ---
angelinaar out of [facility] wth pt.
== END 2021-10-24 14:52 | disposition short-term general hospital (02) | DRG 310 ==
LOC: HO.ED 22:07 → HO.EDOVER 22:59
PROVIDERS: Admitting Provider Hospitalist; Emergency Provider Emergency Medicine Emergency Medical Services; Visit Provider Hospitalist
DX: I47.2 Ventricular tachycardia (principal); F17.210 Nicotine dependence, cigarettes, uncomplicated; Z71.6 Tobacco abuse counseling; Z20.822 Contact with and (suspected) exposure to COVID-19; Z91.14 Patient's other noncompliance with medication regimen; Z95.810 Presence of automatic (implantable) cardiac defibrillator; Z91.013 Allergy to seafood; Z79.899 Other long term (current) drug therapy
CPT/HCPCS: 36415; 71045; 80048; 82310; 82947; 83735; 84484; 85025; 87635; 93005; 99285; J0282; J1650; J3475

== ENCOUNTER 2021-12-06 13:56 | Outpatient (REF) | payer MEDICARE, MEDICAID, SELFPAY ==
--- NOTE | ~2021-12-06 | XR_ITS ---
EXAMINATION: XR CHEST CLINICAL INFORMATION: Wheezing and shortness of breath. COMPARISON: 10/24/2021 TECHNIQUE: 2 views of the chest were obtained. FINDINGS: Lungs are well expanded. Minimal linear opacity of scar or atelectasis at the lingula. No airspace disease, pulmonary edema or pleural effusion. Cardiac silhouette is normal in size. The hilar contours are normal. Implantable cardioverter defibrillator generator with intact leads extending to level right atrium and apex of right ventricle. The visualized bones, and upper abdomen, are unremarkable. XR/XR chest 2V IMPRESSION: No evidence of pneumonia. No acute cardiopulmonary disease.
== END 2021-12-06 13:57 | disposition home or self-care (01) ==
LOC: HO.XRAY 13:56
PROVIDERS: Visit Provider Internal Medicine Geriatric Medicine
DX: I26.99 Other pulmonary embolism without acute cor pulmonale (principal); R06.02 Shortness of breath; R06.2 Wheezing; Z95.810 Presence of automatic (implantable) cardiac defibrillator
CPT/HCPCS: 71046

== ENCOUNTER 2022-02-20 07:53 | Emergency (ER) | payer MEDICARE, MEDICAID, SELFPAY ==
--- NOTE | ~2022-02-20 | CT_ITS ---
EXAMINATION: CT ABDOMEN AND PELVIS WITHOUT CONTRAST CLINICAL INFORMATION: Epigastric pain. History of pancreatitis. COMPARISON: 03/23/2016 TECHNIQUE: Multidetector volumetric imaging was performed from the superior aspect of the liver through the pubic symphysis. Sagittal and coronal reformatted images were obtained on the technologist's workstation. This CT examination was performed using dose optimization techniques as appropriate, variously including the following: *Automated exposure control *Adjustment of mA and/or kV according to patient size (this includes techniques or standardized protocols for targeted exams where dose is matched to indication/reason for exam; i.e. extremities or head) *Use of iterative reconstruction technique DLP: 844 mGy-cm FINDINGS: LUNG BASES: Scattered linear opacities of mild atelectasis in the visualized bases. Implantable cardioverter defibrillator generator with leads extending to the right atrium and apex of right ventricle. LIVER: The liver has normal size, shape, and attenuation. No evidence of liver mass. GALLBLADDER AND BILIARY TREE: Gallbladder is without radiopaque stones, wall thickening or pericholecystic fluid. No dilated bile ducts. PANCREAS: Mildly atrophied. No edema, pancreatic ductal dilatation or mass. SPLEEN: Normal. ADRENAL GLANDS: Normal. KIDNEYS AND URETERS: The kidneys have normal size and cortical thickness. No perinephric edema or fluid collection. No urolithiasis or hydroureteronephrosis. BLADDER: Normal. No calculi or wall thickening. BOWEL AND PERITONEUM: Stomach is unremarkable. No dilated loops of bowel. The appendix is normal. No overt bowel wall thickening or mesenteric fat stranding. No free fluid or pneumoperitoneum. ABDOMINAL WALL: Unremarkable. VASCULATURE: Unremarkable. LYMPH NODES: No pathologic sized lymph nodes in the abdomen or pelvis. No inguinal lymphadenopathy. PELVIC VISCERA: Unremarkable. MUSCULOSKELETAL: Unremarkable. CT/CT abdomen pelvis wo IV con IMPRESSION: * No acute imaging abnormalities in the abdomen or pelvis. No evidence of pancreatitis. * No inflammatory change or obstruction along the gastrointestinal tract. * No nephrolithiasis or hydronephrosis.
[2022-02-20 07:57] VITALS: BP 122/79; PULSE 89; RESP 18; TEMP 36.6; O2SAT 98; BMI 39.8
--- NOTE | 2022-02-20 08:24 | ECG_ITS ---
Test Reason : Abdominal pain Blood Pressure : / mmHG Vent. Rate : 089 BPM Atrial Rate : 089 BPM P-R Int : 176 ms QRS Dur : 166 ms QT Int : 446 ms P-R-T Axes : 066 -62 077 degrees QTc Int : 542 ms AV dual-paced rhythm Abnormal ECG When compared with ECG of 24-OCT-2021 11:33, Ventricular-paced rhythm is now Present Referred By: Isadora Castano Electronically Signed By:ROOSEVELT RAMOS MD
--- NOTE | 2022-02-20 08:34 | ED_ITS ---
HPI - Abdominal Pain General Chief Complaint: Abdominal Pain Stated Complaint: abd pain Time Seen by Provider: 02/20/22 08:18 Source: patient Mode of arrival: ambulatory Limitations: no limitations History of Present Illness HPI narrative: 31-year-old male with a history of V-tach status post AICD followed at [facility] currently anticoagulated on Eliquis who presents with complaints of intermittent epigastric abdominal pain for the last 3 days. Patient reports initially on day 1 he had vomiting but this is now resolved. He has had diarrhea day 1 and day 2 with 6 episodes per day. Today he has 2 episodes. No fevers, chills, urinary symptoms. Patient reports on February 15 he was at [facility] to have the battery changed on his AICD. While he was there he was complaining of some abdominal pain. He had a CT performed that was concerning for acute pancreatitis. Patient with no history of pancreatitis. It was recommended patient be admitted for further evaluation but he declined admission and left against medical advice. He tells me this was because his was not going to be allowed to stay with him. Patient also complaining of sneezing, sinus pressure and sinus pain, nasal congestion for the last few days. Related Data Home Medications Medication Instructions Recorded Confirmed lorazepam 1 mg tablet 1 tab PO DAILY PRN Anxiety 10/23/21 10/23/21 nadolol 80 mg tablet 1 tab PO BID 10/23/21 10/23/21 quinidine gluconate 324 mg 1 tab PO TID 10/23/21 10/23/21 tablet,extended release Previous Rx's Medication Instructions Recorded lidocaine (PF) 100 mg/5 mL (2 %) 113.398 mg (5.6699 mL) IV Q15M PRN 10/24/21 intravenous syringe Heart Rate >300 #50 mL lidocaine (PF) 8 mg/mL (0.8 %) in 2,000 mg continuous IV infusion 10/24/21 5 % dextrose intravenous solution .[id number] #6,000 mL Allergies Allergy/AdvReac Type Severity Reaction Status Date / Time shrimp [SHRIMP] Allergy Severe SWELLING Verified 10/24/21 05:21 DUST Allergy Unknown UNKNOWN Uncoded 10/24/19 16:26 shrimps Allergy Unknown Anaphylaxis Uncoded 10/23/21 20:46 Review of Systems Review of Systems Yes all other systems are reviewed and are negative Constitutional: Reports no additional constitutional complaints, Denies body ache(s), Denies chills, Denies fever(s), Denies headache(s) and Denies weakness Eyes: Reports no additional eye complaints and Denies change in vision Reports system reviewed and no additional complaints, except as documented, Denies dizziness, Denies headache(s), Reports nasal congestion, Denies nasal discharge, Denies neck pain, Reports sinus pain and Reports sinus pressure Cardiovascular: Reports no additional cardiovascular complaints, Denies chest pain, Denies leg edema and Denies dyspnea Respiratory: Reports no additional respiratory complaints, Denies cough and Denies dyspnea Gastrointestinal: Reports no additional gastrointestinal complaints, Reports abdominal pain, Reports diarrhea, Reports nausea and Reports vomiting Genitourinary: Denies urinary incontinence Musculoskeletal: Reports no additional musculoskeletal complaints, Denies back pain, Denies arthralgias, Denies joint swelling, Denies neck pain, Denies numbness and Denies tingling Skin/Breast: Reports system reviewed and no additional complaints, except as docu and Denies rash Reports system reviewed and no additional complaints, except as documented, Denies dizziness, Denies headache(s), Denies numbness, Denies tingling and Denies weakness PMFSH Past Medical History Attestation statement: The following information was validated with the patient. Source: old records reviewed and nursing notes reviewed Medical History Cardiac defibrillator in place Family History Family History Other Family history non-contributory Social History Social History Household Members: Family Smoked in Last 30 Days: Yes Use of substances other than those prescribed or required for medical reasons: Yes Substance Use Type: Marijuana Advance Directives: No Physical Exam ED Vital Signs: Vital Signs - 24 hr 02/20/22 07:57 Temperature 97.8 F Pulse Rate 89 Respiratory Rate 18 Blood Pressure 122/79 Pulse Oximetry 98 Oxygen Delivery Method Room Air BMI result Body Mass Index 39.8 Const General: cooperative, healthy appearing, comfortable and no acute distress Orientation/consciousness: patient oriented x3 Limitations: no limitations HENMT Head: Yes normal to inspection Ears: hearing grossly normal bilaterally Eyes General: appearance normal, both eyes and all related structures Pupils: Equal, round and reactive pupils present Neck Neck: Yes normal visual inspection, Yes full ROM and Yes no lymphadenopathy Chest Chest palpation & inspection: normal inspection of the chest Resp Effort & Inspection: normal respiratory effort Auscultation: clear to auscultation bilaterally Cardio Rate: regular rate Rhythm: regular rhythm Peripheral pulses: Peripheral pulses 2+ throughout GI Inspection: Yes normal to inspection Palpation (GI): Soft to palpation and Tenderness to palpation present (GI) (Epigastric tenderness to palpation) Auscultation: normal bowel sounds General: Yes no CVA tenderness Back/Spine/Pelvis Back: no CVA tenderness Thoracic/Lumbar Spine: thoracic and lumbar spine normal to inspection Skin General skin exam: no rashes or lesions noted Neuro General: patient oriented x3 and moves all extremities Cranial nerves: Yes Equal, round and reactive pupils present Cognition (Neuro): normal cognition Gait exam (Neuro): Normal gait present Extrem General: Yes normal to inspection, Yes no pedal edema and Yes no calf tenderness Course Course Course Narrative: CT shows no signs of pancreatitis. Lipase is normal. Patient was offered analgesia but tells me that he does not feel like he needs it because his pain is not that bad. Patient tolerating p.o.. Abdomen is benign. COVID screen is positive. Patient with no hypoxia or tachypnea. Lungs are clear. Patient on multiple rate control medications and anticoagulants that interact with Paxlovid. This was discussed with the patient and plan is to proceed with supportive care. Reviewed worrisome signs and symptoms of when to return to the emergency room. Comfortable plan for discharge home. Medical Decision Making Medical Decision Making [facility] Narrative: 31 year old male with a history of V-tach requiring AICD placement presents with intermittent abdominal pain for several days. Initially had vomiting but now resolved. Has had diarrhea-[facility] wanted stool studies but he was unable to provide. Diagnosed at [facility] on the with pancreatitis with recommendations for admission but patient left against medical advice. Patient here with continued symptoms. Patient denies alcohol use. Patient with epigastric tenderness to palpation on exam. Will obtain labs, UA, CT, stool studies. Patient also with some URI symptoms so will send testing for COVID, flu, RSV. Will attempt to obtain records from [facility] Differential Diagnosis Differential Diagnoses: The differential diagnosis associated with the presentation includes Pancreatitis, gastritis, cholecystitis Lab Data [facility] Lab Attestation statement: I reviewed the patient's lab results. 02/20/22 08:41 02/20/22 08:40 Labs: Lab Results 02/20/22 02/20/22 02/20/22 Range/Units 08:40 08:40 08:40 WBC (4.8-10.8) X10*3/uL RBC (4.60-5.80) X10*6/uL Hgb (14.0-18.0) g/dl Hct (42.0-52.0) % MCV (80.0-98.0) fL MCH (27.0-33.0) pg MCHC (31.0-36.0) g/dl RDW (11.0-16.0) % Plt Count (160-400) X10*3/uL MPV (9.4-12.4) fL Immature Gran % (Auto) (0.0-0.4) % Neut % (Auto) (45-73) % Lymph % (Auto) (20-40) % [place] % (Auto) (2-11) % Eos % (Auto) (0-4) % Baso % (Auto) (0-2) % Lymph # (Auto) (1.2-4.9) X10*3/uL [place] # (Auto) (0.1-1.2) X10*3/uL Eos # (Auto) (0.0-0.4) X10*3/uL Baso # (Auto) (0.0-0.2) X10*3/uL Abs Immat Gran (auto) (0.00-0.03) X10*3/uL Absolute Neuts (auto) (2.0-8.3) x10*3/uL Absolute Nucleated RBC (0.0-0.012) X10*3/uL Nucleated RBC % (auto) (0.0-0.2) /100WBC Sodium 140 (135-145) mmol/L Potassium 3.5 (3.3-5.1) mmol/L Chloride 107 (96-108) mmol/L Carbon Dioxide 26 (22-29) mmol/L Anion Gap 11 L (12-20) BUN 13 (9-16) mg/dL Creatinine 0.82 (0.5-1.4) mg/dL Estim Creat Clear Calc 138.3 Estimated GFR > 60 Random Glucose 93 (60-115) mg/dL Lactic Acid 0.6 (0.5-2.0) mmol/L Calcium 8.8 (8.4-10.2) mg/dL Total Bilirubin 0.5 (0.0-1.0) mg/dL Direct Bilirubin 0.2 (0.0-0.5) mg/dL AST 23 (5-37) U/L ALT 26 (0-40) U/L Alkaline Phosphatase 55 (39-117) U/L Troponin I High Sens < 3.5 (<3.5-35.0) ng/L Total Protein 6.2 L (6.5-8.0) g/dL Albumin 3.9 (3.5-5.0) g/dL Lipase 23 (8-78) U/L Influenza Type A (PCR) (Negative) Influenza Type B (PCR) (Negative) RSV RNA Qual (PCR) (Negative) SARS-CoV-2 RNA (RT-PCR) (Negative) 02/20/22 02/20/22 Range/Units 08:41 08:41 WBC 5.4 (4.8-10.8) X10*3/uL RBC 5.04 (4.60-5.80) X10*6/uL Hgb 13.9 L (14.0-18.0) g/dl Hct 42.4 (42.0-52.0) % MCV 84.1 (80.0-98.0) fL MCH 27.6 (27.0-33.0) pg MCHC 32.8 (31.0-36.0) g/dl RDW 14.2 (11.0-16.0) % Plt Count 161 (160-400) X10*3/uL MPV 9.8 (9.4-12.4) fL Immature Gran % (Auto) 0.2 (0.0-0.4) % Neut % (Auto) 46.5 (45-73) % Lymph % (Auto) 34.6 (20-40) % [place] % (Auto) 12.8 H (2-11) % Eos % (Auto) 5.5 H (0-4) % Baso % (Auto) 0.4 (0-2) % Lymph # (Auto) 1.9 (1.2-4.9) X10*3/uL [place] # (Auto) 0.7 (0.1-1.2) X10*3/uL Eos # (Auto) 0.3 (0.0-0.4) X10*3/uL Baso # (Auto) 0.0 (0.0-0.2) X10*3/uL Abs Immat Gran (auto) 0.01 (0.00-0.03) X10*3/uL Absolute Neuts (auto) 2.5 (2.0-8.3) x10*3/uL Absolute Nucleated RBC 0.000 (0.0-0.012) X10*3/uL Nucleated RBC % (auto) 0.0 (0.0-0.2) /100WBC Sodium (135-145) mmol/L Potassium (3.3-5.1) mmol/L Chloride (96-108) mmol/L Carbon Dioxide (22-29) mmol/L Anion Gap (12-20) BUN (9-16) mg/dL Creatinine (0.5-1.4) mg/dL Estim Creat Clear Calc Estimated GFR Random Glucose (60-115) mg/dL Lactic Acid (0.5-2.0) mmol/L Calcium (8.4-10.2) mg/dL Total Bilirubin (0.0-1.0) mg/dL Direct Bilirubin (0.0-0.5) mg/dL AST (5-37) U/L ALT (0-40) U/L Alkaline Phosphatase (39-117) U/L Troponin I High Sens (<3.5-35.0) ng/L Total Protein (6.5-8.0) g/dL Albumin (3.5-5.0) g/dL Lipase (8-78) U/L Influenza Type A (PCR) NEGATIVE (Negative) Influenza Type B (PCR) NEGATIVE (Negative) RSV RNA Qual (PCR) NEGATIVE (Negative) SARS-CoV-2 RNA (RT-PCR) POSITIVE A (Negative) Independent Interpretation I performed an independent interpretation of an: EKG and CT Scan (Independently reviewed which shows no signs of pancreatitis) Interpretation: I independently reviewed the EKG which shows AV paced rhythm with rate 89, Radiology Impression Discussion of test interpretation with radiology: I have reviewed the radiologist's reading. Radiologist Impression: [address] [address] [address] Scan Report Signed Patient: Ty Roper MR#: [id number] : 1990 Acct:[id number] Age/Sex: 31 / M ADM Date: 02/20/22 Loc: HO.ED Attending Dr: Ordering Physician: Isadora Castano NP Date of Service: 02/20/22 Procedure(s): CT abdomen pelvis wo IV con Accession Number(s): [id number] cc: Isadora Castano NP~ EXAMINATION: CT ABDOMEN AND PELVIS WITHOUT CONTRAST? CLINICAL INFORMATION: Epigastric pain. History of pancreatitis.? COMPARISON: 03/23/2016? TECHNIQUE: Multidetector volumetric imaging was performed from the superior aspect of the liver through the pubic symphysis. Sagittal and coronal reformatted images were obtained on the technologist's workstation.? This CT examination was performed using dose optimization techniques as appropriate, variously including the following: *Automated exposure control *Adjustment of mA and/or kV according to patient size (this includes techniques or standardized protocols for targeted exams where dose is matched to indication/reason for exam; i.e. extremities or head) *Use of iterative reconstruction technique DLP: 844 mGy-cm FINDINGS: LUNG BASES: Scattered linear opacities of mild atelectasis in the visualized bases. Implantable cardioverter defibrillator generator with leads extending to the right atrium and apex of right ventricle. LIVER: The liver has normal size, shape, and attenuation.? No evidence of liver mass. GALLBLADDER AND BILIARY TREE: Gallbladder is without radiopaque stones, wall thickening or pericholecystic fluid.? No dilated bile ducts. PANCREAS: Mildly atrophied. No edema, pancreatic ductal dilatation or mass.? SPLEEN: Normal.? ADRENAL GLANDS: Normal.? KIDNEYS AND URETERS: The kidneys have normal size and cortical thickness. No perinephric edema or fluid collection. No urolithiasis or hydroureteronephrosis. BLADDER:? Normal. No calculi or wall thickening. BOWEL AND PERITONEUM: Stomach is unremarkable. No dilated loops of bowel. The appendix is normal. No overt bowel wall thickening or mesenteric fat stranding. No free fluid or pneumoperitoneum. ABDOMINAL WALL: Unremarkable.? VASCULATURE: Unremarkable. LYMPH NODES: No pathologic sized lymph nodes in the abdomen or pelvis. No inguinal lymphadenopathy. PELVIC VISCERA: Unremarkable. MUSCULOSKELETAL: Unremarkable.? CT/CT abdomen pelvis wo IV con IMPRESSION: *? No acute imaging abnormalities in the abdomen or pelvis. No evidence of pancreatitis. *? No inflammatory change or obstruction along the gastrointestinal tract. *? No nephrolithiasis or hydronephrosis. ? 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 Patient had right upper quadrant ultrasound performed with no gallstones seen. Prescription Management I considered prescription management with: Antiviral Paxlovid-interacts with rate control medications patient is prescribed as well as anticoagulant Discharge Plan Discharge Clinical Impression: Abdominal pain, COVID-19, Diarrhea Patient Disposition: Home, Self-Care Instructions: Acute Diarrhea (ED), Abdominal Pain (ED), COVID-19 (Coronavirus Disease 2019) (ED) Additional Instructions: Your CT scan and lab work shows no signs of pancreatitis. You likely had pancreatitis several days ago and this episode resolved Your COVID test was positive. You need to quarantine for 5 days then mask up for an additional 5 days. We discussed that there is an available medication for the treatment of COVID. However it interacts with all of your heart medications and is not recommended for you. Inrease fluids at home. Take Motrin or Tylenol if able as needed for pain or fever We did send some stool studies to the lab which takes several days to come back. We will call you if these are positive Prescriptions: No Action nadolol 80 mg tablet 1 tab PO BID quinidine gluconate 324 mg tablet extended release 1 tab PO TID lorazepam 1 mg tablet 1 tab PO DAILY PRN (Reason: Anxiety) lidocaine in 5 % dextrose (PF) 8 mg/mL (0.8 %) Parenteral Solution 2,000 mg continuous IV infusion .[id number] Qty: 6000 0RF lidocaine (PF) 100 mg/5 mL (2 %) Syringe 113.398 mg IV Q15M PRN (Reason: Heart Rate >300) Qty: 50 0RF Referrals: Physician,Unknown J [Primary Care Provider] - Interventions: ED Discharge Assessment Last Done: 02/20/22 10:46 Discharge Date/Time: 02/20/22 10:46
[2022-02-20 08:46] LABS: MANUAL DIFF FLAG NO
[2022-02-20 08:47] LABS: Basophils Percent Auto 0.4 % (0-2); Eosinophils Absolute Auto 0.3 X10*3/uL (0.0-0.4); Eosinophils Percent Auto 5.5 % (0-4); Hematocrit 42.4 % (42.0-52.0); Hemoglobin 13.9 g/dl (14.0-18.0); Imm Gran Abs Auto 0.01 X10*3/uL (0.00-0.03); Imm Gran Pct Auto 0.2 % (0.0-0.4); Lymphocytes Absolute Auto 1.9 X10*3/uL (1.2-4.9); Lymphocytes Percent Auto 34.6 % (20-40); Mean Corpuscular HGB Conc 32.8 g/dl (31.0-36.0); Mean Corpuscular Hemoglobin 27.6 pg (27.0-33.0); Mean Corpuscular Volume 84.1 fL (80.0-98.0); Mean Platelet Volume 9.8 fL (9.4-12.4); Monocytes Absolute Auto 0.7 X10*3/uL (0.1-1.2); Monocytes Percent Auto 12.8 % (2-11); Neutrophils Absolute Auto 2.5 x10*3/uL (2.0-8.3); Neutrophils Percent Auto 46.5 % (45-73); Platelet Count 161 X10*3/uL (160-400); Red Blood Count 5.04 X10*6/uL (4.60-5.80); Red Cell Distribution Width 14.2 % (11.0-16.0); White Blood Count 5.4 X10*3/uL (4.8-10.8)
[2022-02-20 08:59] LABS: Lactic Acid 0.6 mmol/L (0.5-2.0)
[2022-02-20 09:11] LABS: Alanine Aminotransferase 26 U/L (0-40); Albumin Level 3.9 g/dL (3.5-5.0); Alkaline Phosphatase 55 U/L (39-117); Anion Gap 11 (12-20); Aspartate Amino Transferase 23 U/L (5-37); Bilirubin Direct 0.2 mg/dL (0.0-0.5); Bilirubin Total 0.5 mg/dL (0.0-1.0); Blood Urea Nitrogen 13 mg/dL (9-16); Calcium 8.8 mg/dL (8.4-10.2); Carbon Dioxide 26 mmol/L (22-29); Chloride 107 mmol/L (96-108); Creatinine Clr Calc Pharmacy 138.3; Estimated Glomerular Filt Rate > 60; Glucose Random 93 mg/dL (60-115); Lipase 23 U/L (8-78); Potassium 3.5 mmol/L (3.3-5.1); Sodium 140 mmol/L (135-145); Total Protein 6.2 g/dL (6.5-8.0)
[2022-02-20 09:15] LABS: Troponin-I High Sensitivity < 3.5 ng/L (<3.5-35.0)
[2022-02-20 09:24] LABS: Influenza A PCR NEGATIVE (Negative); Influenza B PCR NEGATIVE (Negative); Resp Syncy Virus RNA Qual PCR NEGATIVE (Negative); SARS COV2 PCR INHOUSE POSITIVE (Negative)
[2022-02-20 12:18] LABS: CDiff Gene PCR POSITIVE (Negative)
[2022-02-20 14:13] LABS: Campylobacter Not Detected (Not Detect.); E. coli EAEC Not Detected (Not Detect.); E. coli EPEC Not Detected (Not Detect.); E. coli ETEC Not Detected (Not Detect.); Plesiomonas shigelloides Not Detected (Not Detect.); Salmonella Not Detected (Not Detect.); Vibrio Not Detected (Not Detect.); Vibrio Cholerae Not Detected (Not Detect.); Yersinia enterocolitica Not Detected (Not Detect.)
[2022-02-20 14:14] LABS: Adenovirus F 40/41 Not Detected (Not Detect.); Astrovirus Not Detected (Not Detect.); Cryptosporidium Not Detected (Not Detect.); Cyclospora cayetanensis Not Detected (Not Detect.); E. coli STEC Not Detected (Not Detect.); Entamoeba histolytica Not Detected (Not Detect.); Giardia lamblia Not Detected (Not Detect.); Rotavirus A Not Detected (Not Detect.); Sapovirus Not Detected (Not Detect.); Shigella sp./EIEC Not Detected (Not Detect.)
[2022-02-20 14:15] LABS: Norovirus GI/GII Detected (Not Detect.)
[2022-02-20 14:16] LABS: CDiff Toxin Negative (Negative)
[2022-02-20 14:17] LABS: CDIFF Internal ctrl Dots and bkg OK (V)
== END 2022-02-20 10:46 | disposition home or self-care (01) ==
PROVIDERS: Nurse Practitioner Family; Emergency Provider Emergency Medicine
DX: U07.1 COVID-19 (principal); R10.13 Epigastric pain; R19.7 Diarrhea, unspecified; Z79.899 Other long term (current) drug therapy
CPT/HCPCS: 0241U; 36415; 74176; 80048; 80076; 83605; 83690; 84484; 85025; 87324; 87493; 87507; 93005; 96374; 99284

== ENCOUNTER 2022-05-05 12:29 | Emergency (ER) | payer MEDICARE, MEDICAID, SELFPAY ==
--- NOTE | ~2022-05-05 | XR_ITS ---
EXAMINATION: XR CHEST CLINICAL INFORMATION: Chest pain. COMPARISON: 12/06/2021 chest radiographs. TECHNIQUE: Frontal view of the chest was obtained. FINDINGS: Support devices: Left-sided pacemaker device appears in good position. Mild linear markings are seen at the left lung base. The left upper lung field and right lung are clear. The heart and mediastinal structures are unremarkable. XR/XR chest 1V IMPRESSION: Mild left basilar linear markings have mildly increased compared the previous study suggesting increased atelectasis. A definitive infiltrate is not seen.
--- NOTE | 2022-05-05 12:33 | ECG_ITS ---
Test Reason : sob Blood Pressure : / mmHG Vent. Rate : 089 BPM Atrial Rate : 089 BPM P-R Int : 178 ms QRS Dur : 148 ms QT Int : 438 ms P-R-T Axes : 030 -55 025 degrees QTc Int : 532 ms AV dual-paced rhythm Abnormal ECG When compared with ECG of 20-FEB-2022 08:24, No significant change was found Referred By: Obed Conn Electronically Signed By:BRANDEN WESLEY
[2022-05-05 12:34] VITALS: BP 110/61; PULSE 90; RESP 18; TEMP 36; O2SAT 95; BMI 39.8
--- NOTE | 2022-05-05 12:35 | ED_ITS ---
HPI - General Adult General Chief complaint: General Medical <SUNIL Rey - Last Filed: 05/05/22 12:37> Stated complaint: Diff Breathing ?Pneumonia <SUNIL Rey - Last Filed: 05/05/22 12:37> Time Seen by Provider: 05/05/22 13:20 <SUNIL Rey Last Filed: 05/05/22 12:37> Source: patient and family <SUNIL Gregg Last Filed: 05/05/22 19:13> Mode of arrival: ambulatory <SUNIL Gregg Last Filed: 05/05/22 19:13> Limitations: no limitations <SUNIL Gregg Last Filed: 05/05/22 19:13> History of Present Illness HPI narrative: This is a 31-year-old male, a past medical history of V-tach status post AICD followed at [facility] currently anticoagulated on Eliquis, who presents to the emergency department today with complaints of left-sided pleuritic pain since yesterday. Patient reports that while he was playing video games yesterday, while he was laying on his left side, he suddenly felt left- sided rib pain. Patient reports that he is unable to take a deep breath because of this pain. Patient denies any fevers, chills, cough, chest pain, palpitations, shortness of breath, nausea, vomiting, diarrhea, abdominal pain, or urinary symptoms. Denies calf pain or lower extremity swelling. Patient repo rts that he had pneumonia in the fall and states that his symptoms feel similar. Denies any recent illnesses. <SUNIL Gregg Last Filed: 05/05/22 19:13> MD complaint: Left sided pleuritic pain <SUNIL Gregg Last Filed: 05/05/22 19:13> Onset (ago): day(s) <SUNIL Gregg Last Filed: 05/05/22 19:13> Radiation: non-radiation <SUNIL Gregg Last Filed: 05/05/22 19:13> Severity: moderate <SUNIL Gregg Last Filed: 05/05/22 19:13> Quality: aching <SUNIL Gregg Last Filed: 05/05/22 19:13> Pain Consistency: constant <SUNIL Gregg - Last Filed: 05/05/22 19:13> Relieving factors: rest <SUNIL Gregg - Last Filed: 05/05/22 19:13> Exacerbating factors: other (deep inspiration) <SUNIL Gregg - Last Filed: 05/05/22 19:13> Associated symptoms: denies other symptoms <SUNIL Gregg - Last Filed: 05/05/22 19:13> Treatments prior to arrival: none <SUNIL Gregg Last Filed: 05/05/22 19:13> Related Data Home medications: Home Medications Medication Instructions Recorded Confirmed lorazepam 1 mg tablet 1 tab PO DAILY PRN Anxiety 10/23/21 10/23/21 nadolol 80 mg tablet 1 tab PO BID 10/23/21 10/23/21 quinidine gluconate 324 mg 1 tab PO TID 10/23/21 10/23/21 tablet,extended release Previous Rx's Medication Instructions Recorded lidocaine (PF) 100 mg/5 mL (2 %) 113.398 mg (5.6699 mL) IV Q15M PRN 10/24/21 intravenous syringe Heart Rate >300 #50 mL lidocaine (PF) 8 mg/mL (0.8 %) in 2,000 mg continuous IV infusion 10/24/21 5 % dextrose intravenous solution .[id number] #6,000 mL amoxicillin 875 mg-potassium 1 tab PO BID 7 days #14 tabs 05/05/22 clavulanate 125 mg tablet <SUNIL Rey - Last Filed: 05/05/22 12:37> Allergies/adverse reactions: Allergies Allergy/AdvReac Type Severity Reaction Status Date / Time shrimp [SHRIMP] Allergy Severe SWELLING Verified 05/05/22 12:38 DUST Allergy Unknown UNKNOWN Uncoded 10/24/19 16:26 shrimps Allergy Unknown Anaphylaxis Uncoded 10/23/21 20:46 <SUNIL Rey Last Filed: 05/05/22 12:37> Review of Systems Review of Systems: Yes all other systems are reviewed and are negative <SUNIL Gregg Last Filed: 05/05/22 19:13> PMFSH Past Medical History Attestation statement: The following information was validated with the patient. <SUNIL Gregg - Last Filed: 05/05/22 19:13> Medical History: Medical History Cardiac defibrillator in place <SUNIL Rey - Last Filed: 05/05/22 12:37> Family History Family History: Family History Other Family history non-contributory <SUNIL Rey - Last Filed: 05/05/22 12:37> Social History Social History: Social History Household Members: Family Substance Use Type: Marijuana Advance Directives: No Advance Directives Information Provided: No <SUNIL Rey - Last Filed: 05/05/22 12:37> Physical Exam ED Vital Signs: Vital Signs - 24 hr 05/05/22 12:34 05/05/22 15:11 Temperature 96.8 F 97.3 F Pulse Rate 90 89 Respiratory Rate 18 13 Blood Pressure 110/61 122/75 Pulse Oximetry 95 97 Oxygen Delivery Method Room Air Room Air BMI result Body Mass Index 39.8 <SUNIL Rey - Last Filed: 05/05/22 12:37> Vital Signs - 24 hr 05/05/22 12:34 05/05/22 15:11 Temperature 96.8 F 97.3 F Pulse Rate 90 89 Respiratory Rate 18 13 Blood Pressure 110/61 122/75 Pulse Oximetry 95 97 Oxygen Delivery Method Room Air Room Air BMI result Body Mass Index 39.8 <SUNIL Gregg - Last Filed: 05/05/22 19:13> Appearance: Alert. Oriented X3. No acute distress. Eyes: Pupils equal, round and reactive to light. EOMI. ENT: Pharynx normal. No oropharyngeal erythema or edema, uvula midline. TMs are nonerythematous, nonedematous. Neck: Normal inspection. Neck supple. No cervical lymphadenopathy. CVS: Normal heart rate and rhythm. Pulses normal. Respiratory: No respiratory distress. Breath sounds normal. Lungs clear to ausculation bilaterally, no wheezes, rhonchi or rales. No tenderness overlying the left anterior ribs. Abdomen: Soft and nontender. +BS x4 Skin: Skin warm and dry. Normal skin color. Normal skin turgor. No rashes. Extremities: No lower extremity edema. No calf tenderness. Neuro: Oriented X 3. No motor deficit. No sensory deficit. CN II-XII intact. <SUNIL Gregg - Last Filed: 05/05/22 19:13> Course Course Course Narrative: This is an RME: Additional HPI, ROS, PE not included below will be deferred to primary provider. 31 year old male history of ventricular tachycardia presenting to the emergency department for evaluation of pleuritic chest pain particularly on the left side of chest, patient tells me it hurts when he takes a deep breath and, feels like a time and pneumonia. Denies fevers, chills, sick contacts, abdominal pain, nausea, vomiting, headache, vision changes, dizziness and weakness. Denies trauma to the area. Physical exam benign. Well-appearing in triage chair saturating 96% on room air breathing unlabored. Plan x-ray basic labs, troponin, EKG, D-dimer. <SUNIL Rey - Last Filed: 05/05/22 12:37> Medical Decision Making Medical Decision Making MDM Narrative: This is a 31-year-old male, with a past medical history of V-tach status post AICD followed at [facility] currently anticoagulated on Eliquis, who presents to the ED for evaluation of left sided pleuritic pain since yesterday. Per patient, patient was admitted [facility] after being induced into coma in Fall 2021 from pneumonia. Patient reports that his symptoms feel very similar to when he had pneumonia in the past. Vital signs stable, patient is well-appearing on exam, lung sounds are clear, patient reports left-sided rib pain with inspiration, no tenderness to palpation examination. Viral swabs negative, negative troponin, EKG is nonischemic, chest x-ray shows mild left basilar linear markings that have increased compared to the previous study. No leukocytosis, other blood work nondiagnostic. Due to patient's past medical history, will cover for possible pneumonia with Augmentin. Patient advised to follow-up with his primary care physician regarding this visit. Counseled patient that if any of his symptoms worsen to r eturn for further evaluation. Patient understands and agrees with plan. <SUNIL Ramachandran - Last Filed: 05/05/22 19:13> Differential Diagnosis Differential Diagnoses: The differential diagnosis associated with the presentation includes <SUNIL Gregg - Last Filed: 05/05/22 19:13> Pleurisy, pneumonia, ACS - less likely, PE - less likely, pneumothorax <SUNIL Gregg - Last Filed: 05/05/22 19:13> Lab Data MDM Lab Attestation statement: I reviewed the patient's lab results. <SUNIL Gregg - Last Filed: 05/05/22 19:13> Result Diagrams: 05/05/22 12:51 05/05/22 12:51 <SUNIL Rey - Last Filed: 05/05/22 12:37> Labs: Lab Results 05/05/22 05/05/22 05/05/22 Range/Units 12:50 12:51 12:51 WBC 8.7 (4.8-10.8) X10*3/uL RBC 5.32 (4.60-5.80) X10*6/uL Hgb 14.8 (14.0-18.0) g/dl Hct 44.3 (42.0-52.0) % MCV 83.3 (80.0-98.0) fL MCH 27.8 (27.0-33.0) pg MCHC 33.4 (31.0-36.0) g/dl RDW 14.7 (11.0-16.0) % Plt Count 207 D (160-400) X10*3/uL MPV 10.1 (9.4-12.4) fL Immature Gran % (Auto) 0.2 (0.0-0.4) % Neut % (Auto) 68.1 (45-73) % Lymph % (Auto) 25.2 (20-40) % Grimes % (Auto) 5.2 (2-11) % Eos % (Auto) 1.0 (0-4) % Baso % (Auto) 0.3 (0-2) % Lymph # (Auto) 2.2 (1.2-4.9) X10*3/uL Grimes # (Auto) 0.5 (0.1-1.2) X10*3/uL Eos # (Auto) 0.1 (0.0-0.4) X10*3/uL Baso # (Auto) 0.0 (0.0-0.2) X10*3/uL Abs Immat Gran (auto) 0.02 (0.00-0.03) X10*3/uL Absolute Neuts (auto) 5.9 (2.0-8.3) x10*3/uL Absolute Nucleated RBC 0.000 (0.0-0.012) X10*3/uL Nucleated RBC % (auto) 0.0 (0.0-0.2) /100WBC D-Dimer High Sensitivty < 150 NG/ML Sodium (135-145) mmol/L Potassium (3.3-5.1) mmol/L Chloride (96-108) mmol/L Carbon Dioxide (22-29) mmol/L Anion Gap (12-20) BUN (9-16) mg/dL Creatinine (0.5-1.4) mg/dL Estim Creat Clear Calc Estimated GFR Random Glucose (60-115) mg/dL Calcium (8.4-10.2) mg/dL Magnesium (1.6-2.6) mg/dL Total Bilirubin (0.0-1.0) mg/dL AST (5-37) U/L ALT (0-40) U/L Alkaline Phosphatase (39-117) U/L Troponin I High Sens < 3.5 (<3.5-35.0) ng/L B-Natriuretic Peptide (<100) pg/mL Total Protein (6.5-8.0) g/dL Albumin (3.5-5.0) g/dL Lipase (8-78) U/L COVID-19 (TAMMI) (Negative) COVID-19 Clin Com Influenza Type A (PIO) (Negative) Influenza Type B (PIO) (Negative) Influenza A & B Note 05/05/22 05/05/22 05/05/22 Range/Units 12:51 12:51 12:51 WBC (4.8-10.8) X10*3/uL RBC (4.60-5.80) X10*6/uL Hgb (14.0-18.0) g/dl Hct (42.0-52.0) % MCV (80.0-98.0) fL MCH (27.0-33.0) pg MCHC (31.0-36.0) g/dl RDW (11.0-16.0) % Plt Count (160-400) X10*3/uL MPV (9.4-12.4) fL Immature Gran % (Auto) (0.0-0.4) % Neut % (Auto) (45-73) % Lymph % (Auto) (20-40) % Grimes % (Auto) (2-11) % Eos % (Auto) (0-4) % Baso % (Auto) (0-2) % Lymph # (Auto) (1.2-4.9) X10*3/uL Grimes # (Auto) (0.1-1.2) X10*3/uL Eos # (Auto) (0.0-0.4) X10*3/uL Baso # (Auto) (0.0-0.2) X10*3/uL Abs Immat Gran (auto) (0.00-0.03) X10*3/uL Absolute Neuts (auto) (2.0-8.3) x10*3/uL Absolute Nucleated RBC (0.0-0.012) X10*3/uL Nucleated RBC % (auto) (0.0-0.2) /100WBC D-Dimer High Sensitivty NG/ML Sodium 140 (135-145) mmol/L Potassium 4.3 D (3.3-5.1) mmol/L Chloride 107 (96-108) mmol/L Carbon Dioxide 24 (22-29) mmol/L Anion Gap 13 (12-20) BUN 18 H (9-16) mg/dL Creatinine 0.93 (0.5-1.4) mg/dL Estim Creat Clear Calc 122.0 Estimated GFR > 60 Random Glucose 123 H (60-115) mg/dL Calcium 9.2 (8.4-10.2) mg/dL Magnesium 1.9 (1.6-2.6) mg/dL Total Bilirubin 1.4 H (0.0-1.0) mg/dL AST 15 (5-37) U/L ALT 27 (0-40) U/L Alkaline Phosphatase 77 (39-117) U/L Troponin I High Sens (<3.5-35.0) ng/L B-Natriuretic Peptide < 10 (<100) pg/mL Total Protein 6.7 (6.5-8.0) g/dL Albumin 4.2 (3.5-5.0) g/dL Lipase 10 (8-78) U/L COVID-19 (TAMMI) Negative (Negative) COVID-19 Clin Com See Note Influenza Type A (PIO) (Negative) Influenza Type B (PIO) (Negative) Influenza A & B Note 05/05/22 Range/Units 12:51 WBC (4.8-10.8) X10*3/uL RBC (4.60-5.80) X10*6/uL Hgb (14.0-18.0) g/dl Hct (42.0-52.0) % MCV (80.0-98.0) fL MCH (27.0-33.0) pg MCHC (31.0-36.0) g/dl RDW (11.0-16.0) % Plt Count (160-400) X10*3/uL MPV (9.4-12.4) fL Immature Gran % (Auto) (0.0-0.4) % Neut % (Auto) (45-73) % Lymph % (Auto) (20-40) % Grimes % (Auto) (2-11) % Eos % (Auto) (0-4) % Baso % (Auto) (0-2) % Lymph # (Auto) (1.2-4.9) X10*3/uL Grimes # (Auto) (0.1-1.2) X10*3/uL Eos # (Auto) (0.0-0.4) X10*3/uL Baso # (Auto) (0.0-0.2) X10*3/uL Abs Immat Gran (auto) (0.00-0.03) X10*3/uL Absolute Neuts (auto) (2.0-8.3) x10*3/uL Absolute Nucleated RBC (0.0-0.012) X10*3/uL Nucleated RBC % (auto) (0.0-0.2) /100WBC D-Dimer High Sensitivty NG/ML Sodium (135-145) mmol/L Potassium (3.3-5.1) mmol/L Chloride (96-108) mmol/L Carbon Dioxide (22-29) mmol/L Anion Gap (12-20) BUN (9-16) mg/dL Creatinine (0.5-1.4) mg/dL Estim Creat Clear Calc Estimated GFR Random Glucose (60-115) mg/dL Calcium (8.4-10.2) mg/dL Magnesium (1.6-2.6) mg/dL Total Bilirubin (0.0-1.0) mg/dL AST (5-37) U/L ALT (0-40) U/L Alkaline Phosphatase (39-117) U/L Troponin I High Sens (<3.5-35.0) ng/L B-Natriuretic Peptide (<100) pg/mL Total Protein (6.5-8.0) g/dL Albumin (3.5-5.0) g/dL Lipase (8-78) U/L COVID-19 (TAMMI) (Negative) COVID-19 Clin Com Influenza Type A (PIO) Negative (Negative) Influenza Type B (PIO) Negative (Negative) Influenza A & B Note See Note <SUNIL Rey - Last Filed: 05/05/22 12:37> Lab Results 05/05/22 05/05/22 05/05/22 Range/Units 12:50 12:51 12:51 WBC 8.7 (4.8-10.8) X10*3/uL RBC 5.32 (4.60-5.80) X10*6/uL Hgb 14.8 (14.0-18.0) g/dl Hct 44.3 (42.0-52.0) % MCV 83.3 (80.0-98.0) fL MCH 27.8 (27.0-33.0) pg MCHC 33.4 (31.0-36.0) g/dl RDW 14.7 (11.0-16.0) % Plt Count 207 D (160-400) X10*3/uL MPV 10.1 (9.4-12.4) fL Immature Gran % (Auto) 0.2 (0.0-0.4) % Neut % (Auto) 68.1 (45-73) % Lymph % (Auto) 25.2 (20-40) % Grimes % (Auto) 5.2 (2-11) % Eos % (Auto) 1.0 (0-4) % Baso % (Auto) 0.3 (0-2) % Lymph # (Auto) 2.2 (1.2-4.9) X10*3/uL Grimes # (Auto) 0.5 (0.1-1.2) X10*3/uL Eos # (Auto) 0.1 (0.0-0.4) X10*3/uL Baso # (Auto) 0.0 (0.0-0.2) X10*3/uL Abs Immat Gran (auto) 0.02 (0.00-0.03) X10*3/uL Absolute Neuts (auto) 5.9 (2.0-8.3) x10*3/uL Absolute Nucleated RBC 0.000 (0.0-0.012) X10*3/uL Nucleated RBC % (auto) 0.0 (0.0-0.2) /100WBC D-Dimer High Sensitivty < 150 NG/ML Sodium (135-145) mmol/L Potassium (3.3-5.1) mmol/L Chloride (96-108) mmol/L Carbon Dioxide (22-29) mmol/L Anion Gap (12-20) BUN (9-16) mg/dL Creatinine (0.5-1.4) mg/dL Estim Creat Clear Calc Estimated GFR Random Glucose (60-115) mg/dL Calcium (8.4-10.2) mg/dL Magnesium (1.6-2.6) mg/dL Total Bilirubin (0.0-1.0) mg/dL AST (5-37) U/L ALT (0-40) U/L Alkaline Phosphatase (39-117) U/L Troponin I High Sens < 3.5 (<3.5-35.0) ng/L B-Natriuretic Peptide (<100) pg/mL Total Protein (6.5-8.0) g/dL Albumin (3.5-5.0) g/dL Lipase (8-78) U/L COVID-19 (TAMMI) (Negative) COVID-19 Clin Com Influenza Type A (PIO) (Negative) Influenza Type B (PIO) (Negative) Influenza A & B Note 05/05/22 05/05/22 05/05/22 Range/Units 12:51 12:51 12:51 WBC (4.8-10.8) X10*3/uL RBC (4.60-5.80) X10*6/uL Hgb (14.0-18.0) g/dl Hct (42.0-52.0) % MCV (80.0-98.0) fL MCH (27.0-33.0) pg MCHC (31.0-36.0) g/dl RDW (11.0-16.0) % Plt Count (160-400) X10*3/uL MPV (9.4-12.4) fL Immature Gran % (Auto) (0.0-0.4) % Neut % (Auto) (45-73) % Lymph % (Auto) (20-40) % Grimes % (Auto) (2-11) % Eos % (Auto) (0-4) % Baso % (Auto) (0-2) % Lymph # (Auto) (1.2-4.9) X10*3/uL Grimes # (Auto) (0.1-1.2) X10*3/uL Eos # (Auto) (0.0-0.4) X10*3/uL Baso # (Auto) (0.0-0.2) X10*3/uL Abs Immat Gran (auto) (0.00-0.03) X10*3/uL Absolute Neuts (auto) (2.0-8.3) x10*3/uL Absolute Nucleated RBC (0.0-0.012) X10*3/uL Nucleated RBC % (auto) (0.0-0.2) /100WBC D-Dimer High Sensitivty NG/ML Sodium 140 (135-145) mmol/L Potassium 4.3 D (3.3-5.1) mmol/L Chloride 107 (96-108) mmol/L Carbon Dioxide 24 (22-29) mmol/L Anion Gap 13 (12-20) BUN 18 H (9-16) mg/dL Creatinine 0.93 (0.5-1.4) mg/dL Estim Creat Clear Calc 122.0 Estimated GFR > 60 Random Glucose 123 H (60-115) mg/dL Calcium 9.2 (8.4-10.2) mg/dL Magnesium 1.9 (1.6-2.6) mg/dL Total Bilirubin 1.4 H (0.0-1.0) mg/dL AST 15 (5-37) U/L ALT 27 (0-40) U/L Alkaline Phosphatase 77 (39-117) U/L Troponin I High Sens (<3.5-35.0) ng/L B-Natriuretic Peptide < 10 (<100) pg/mL Total Protein 6.7 (6.5-8.0) g/dL Albumin 4.2 (3.5-5.0) g/dL Lipase 10 (8-78) U/L COVID-19 (TAMMI) Negative (Negative) COVID-19 Clin Com See Note Influenza Type A (PIO) (Negative) Influenza Type B (PIO) (Negative) Influenza A & B Note 05/05/22 Range/Units 12:51 WBC (4.8-10.8) X10*3/uL RBC (4.60-5.80) X10*6/uL Hgb (14.0-18.0) g/dl Hct (42.0-52.0) % MCV (80.0-98.0) fL MCH (27.0-33.0) pg MCHC (31.0-36.0) g/dl RDW (11.0-16.0) % Plt Count (160-400) X10*3/uL MPV (9.4-12.4) fL Immature Gran % (Auto) (0.0-0.4) % Neut % (Auto) (45-73) % Lymph % (Auto) (20-40) % Grimes % (Auto) (2-11) % Eos % (Auto) (0-4) % Baso % (Auto) (0-2) % Lymph # (Auto) (1.2-4.9) X10*3/uL Grimes # (Auto) (0.1-1.2) X10*3/uL Eos # (Auto) (0.0-0.4) X10*3/uL Baso # (Auto) (0.0-0.2) X10*3/uL Abs Immat Gran (auto) (0.00-0.03) X10*3/uL Absolute Neuts (auto) (2.0-8.3) x10*3/uL Absolute Nucleated RBC (0.0-0.012) X10*3/uL Nucleated RBC % (auto) (0.0-0.2) /100WBC D-Dimer High Sensitivty NG/ML Sodium (135-145) mmol/L Potassium (3.3-5.1) mmol/L Chloride (96-108) mmol/L Carbon Dioxide (22-29) mmol/L Anion Gap (12-20) BUN (9-16) mg/dL Creatinine (0.5-1.4) mg/dL Estim Creat Clear Calc Estimated GFR Random Glucose (60-115) mg/dL Calcium (8.4-10.2) mg/dL Magnesium (1.6-2.6) mg/dL Total Bilirubin (0.0-1.0) mg/dL AST (5-37) U/L ALT (0-40) U/L Alkaline Phosphatase (39-117) U/L Troponin I High Sens (<3.5-35.0) ng/L B-Natriuretic Peptide (<100) pg/mL Total Protein (6.5-8.0) g/dL Albumin (3.5-5.0) g/dL Lipase (8-78) U/L COVID-19 (TAMMI) (Negative) COVID-19 Clin Com Influenza Type A (PIO) Negative (Negative) Influenza Type B (PIO) Negative (Negative) Influenza A & B Note See Note <SUNIL Gregg - Last Filed: 05/05/22 19:13> Independent Interpretation I performed an independent interpretation of an: EKG and Plain X-Ray <SUNIL Gregg - Last Filed: 05/05/22 19:13> Interpretation: AV dual paced rhythm with a ventricular rate of 89BPM, normal NE interval, normal QRS. QT/QTC 438/532, no ST elevation or depression. Similar appearing EKG from 02/20/2022. Review of Chest x-ray, left basilar linear markings noted, more pronounced when compared to previous. <SUNIL Gregg - Last Filed: 05/05/22 19:13> Radiology Impression Discussion of test interpretation with radiology: I have reviewed the radiologist's reading. <SUNIL Gregg - Last Filed: 05/05/22 19:13> Radiologist Impression: EXAMINATION: XR CHEST CLINICAL INFORMATION: Chest pain. COMPARISON: 12/06/2021 chest radiographs. TECHNIQUE: Frontal view of the chest was obtained. FINDINGS: Support devices: Left-sided pacemaker device appears in good position. Mild linear markings are seen at the left lung base. The left upper lung field and right lung are clear. The heart and mediastinal structures are unremarkable. XR/XR chest 1V IMPRESSION: Mild left basilar linear markings have mildly increased compared the previous study suggesting increased atelectasis. A definitive infiltrate is not seen. ? Dictated By: Benson Galaviz MD <SUNIL Gregg - Last Filed: 05/05/22 19:13> External Record Review External record reviewed: Inpatient record, Prior outpatient labs, Prior outpatient radiology and Outside ED record <SUNIL Gregg - Last Filed: 05/05/22 19:13> Review of medical records from bring them in [facility] from last year that was previously in patient's chart. Of note patient was admitted in for possible acute pancreatitis, as amylase was reported to be greater than 500. Howwever patient signed AMA prior to further workup. Amylase was ordered on patient today to ensure amylase levels have resolved <SUNIL Gregg - Last Filed: 05/05/22 19:13> Discharge Plan Discharge Clinical Impression: Pleurisy <SUNIL Rey - Last Filed: 05/05/22 12:37> Patient Disposition: Home, Self-Care <SUNIL Rey - Last Filed: 05/05/22 12:37> Instructions: Pleurisy (ED) <SUNIL Rey - Last Filed: 05/05/22 12:37> Additional Instructions: Your work-up today was normal. Your chest x-ray was reviewed as Mild left basilar linear markings have mildly increased compared the previous study suggesting increased atelectasis. A definitive infiltrate is not seen. Because of your history, we are treating for an underlying pneumonia. Please follow up with your primary care physician regarding this visit. Drink plenty of fluids and get plenty of rest. If any new or worsening symptoms occur, please return for re-evaluation. ? <SUNIL Rey - Last Filed: 05/05/22 12:37> Prescriptions: New amoxicillin-pot clavulanate 875-125 mg tablet 1 tab PO BID 7 Days Qty: 14 0RF No Action nadolol 80 mg tablet 1 tab PO BID quinidine gluconate 324 mg tablet extended release 1 tab PO TID lorazepam 1 mg tablet 1 tab PO DAILY PRN (Reason: Anxiety) lidocaine in 5 % dextrose (PF) 8 mg/mL (0.8 %) Parenteral Solution 2,000 mg continuous IV infusion .[id number] Qty: 6000 0RF lidocaine (PF) 100 mg/5 mL (2 %) Syringe 113.398 mg IV Q15M PRN (Reason: Heart Rate >300) Qty: 50 0RF <SUNIL Rey - Last Filed: 05/05/22 12:37> Interventions: ED Discharge Assessment Last Done: 05/05/22 15:20 <SUNIL Rey - Last Filed: 05/05/22 12:37> Discharge Date/Time: 05/05/22 15:21 <SUNIL Rey - Last Filed: 05/05/22 12:37>
--- OUTSIDE RECORDS SUMMARY | 2022-05-05 12:46 | XMS_ITS | Continuity of Care Document ---
Author Name Unknown Organization [facility] Address [address] [place] [address]- Care Team Providers Care Historiography Teacher Name Role Phone Suresh REYNAGA, Zaynab Mack Primary Care Physician Encounter [facility] [place] [facility] [place] Date(s): 11/23/21 - 12/23/21 [facility] [address] [place] [id number]- Allergies, Adverse Reactions, Alerts No Known Allergies Immunizations Given and Recorded Vaccine Date Status Refusal Reason SARS-CoV-2 (COVID-19) mRNA-1273 vaccine 06/12/20 R ecorded SARS-CoV-2 (COVID-19) mRNA-1273 vaccine 05/15/20 R ecorded Medications acyclovir 400 mg oral tablet 1 tablet = 400 mg, Daily, 0 Refills, Maintenance, 12/11/17 11:07:39 EST Start Date: 12/11/17 Status: Ordered apixaban Starter Pack 5 mg oral tablet See Instructions, 2 tablets (10mg) twice daily (8am, 8pm) - next dose 11/22 8pm, continue until last dose 11/27 8am. Then take 1 tablet (5mg) twice daily (8am, 8pm) until directed to stop by primary care doctor. Please follow up closely with primary c... Start Date: 11/22/21 Status: Ordered LORazepam 1 mg oral tablet 1 tablet = 1 mg, By Mouth, Every 6 hours, PRN for anxiety, 0 Refills, Maintenance, 11/19/21 17:36:00 EDT, Tablet, Partial fill upon patient request if the prescription is for a schedule II opioid drug. Start Date: 11/19/21 Status: Ordered melatonin 3 mg oral tablet = 3 mg, By Mouth, Daily at bedtime, PRN Insomnia, 1 tablet (3mg) daily at bedtime as needed for sleep. Also available over the counter., # 30 tablet, 0 Refills, Maintenance, 11/22/21 12:23:00 EDT, Tablet, [facility], Partial fill upon pa... Start Date: 11/22/21 Status: Ordered mexiletine 150 mg oral capsule 1 capsule = 150 mg, By Mouth, Every 8 hours, 1 capsule 3 times daily at 8am, 4pm, 12am(midnight) - next dose 11/22 4pm. Follow up closely with primary care and [facility] cardiology., # 90 capsule, 0 Refills, Maintenance, 11/22/21 12:22:00 EDT, Capsule,... Start Date: 11/22/21 Status: Ordered Multivitamin 1 tablet, By Mouth, Daily, 0 Refills, Maintenance, 11/19/21 17:38:00 EDT, Partial fill upon patientrequest if the prescription is for a schedule II opioid drug. 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 Interested in cessation: Yes. Yes, Type: Cigarettes. 17 Number of years:. Sex Patient Care team information Care Team Personnel Name: Gissel Vilchis RN Position: [facility] RN Member Role: Primary Care Nurse Care Team Related Persons Name: SAI VANG Address: home [address] [place] [id number]
--- OUTSIDE RECORDS SUMMARY | 2022-05-05 12:46 | XMS_ITS | Continuity of Care Document ---
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 Name Role Phone Suresh REYNAGA, Zaynab Mack Primary Care Physician Encounter [facility] Date(s): 11/19/21 - 11/22/[address] [address]- Discharge Disposition: A-D/C Home Attending Physician: Esteban Galaviz MD Admitting Physician: Honey Wray DO Referring Physician: Not on Staff, Referring MD Allergies, Adverse Reactions, Alerts No Known Allergies Immunizations Given and Recorded Vaccine Date Status Refusal Reason SARS-CoV-2 (COVID-19) mRNA-1273 vaccine 06/12/20 R ecorded SARS-CoV-2 (COVID-19) mRNA-1273 vaccine 05/15/20 R ecorded Medications Acetaminophen Tablet 650 mg, Tablet, By Mouth, Every 4 hours, PRN for Pain , Mild, Temperature Greater than 100.5, Routine, 11/19/21 16:32:00 EDT Start Date: 11/19/21 Stop Date: 12/19/21 Status: Ordered acyclovir 400 mg oral tablet 1 tablet [...] 0 Refills, Maintenance, 11/22/21 12:23:00 EDT, Tablet, [facility], Partial fill upon pa... Start Date: 11/22/21 Status: Ordered mexiletine 150 mg oral capsule 1 capsule = 150 mg, By Mouth, Every 8 hours, 1 capsule 3 times daily at 8am, 4pm, 12am(midnight) - next dose 11/22 4pm. Follow up closely with primary care and [facility] cardiology., # 90 capsule, 0 Refills, Maintenance, 11/22/21 12:22:00 EDT, Capsule,... Start Date: 11/22/21 Status: Ordered Multivitamin 1 tablet, By Mouth, Daily, 0 Refills, Maintenance, 11/19/21 17:38:00 EDT, Partial fill upon patientrequest if the prescription is for a schedule II opioid drug. 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 FINDINGS: LINES AND TUBES: Dual-lead left subclavian pacer/AICD wires are intact. LUNGS AND PLEURA: Clear lungs. Normal pulmonary vascularity. No pleural effusion. No pneumothorax. HEART, MEDIASTINUM AND LINDSEY: Heart is normal in size. Normal mediastinal and hilar contour. BONES AND SOFT TISSUES: No acute abnormality. IMPRESSION: No radiographic evidence of an acute cardiopulmonary process. I have personally reviewed the images and I agree with this report. WSN: [id number] Ordering Physician: Dagmar Vickers Dictated By: Vielka Jacobs MD Dictated Date/Time: 11/19/21 9:22 am Reviewed By: Glenroy Pavon MD Signed By: Glenroy Pavon MD Signed Date/Time: 11/19/21 9:27 am Transcribed By: AUGUSTINE Transcribed Date/Time: 11/19/21 9:00 am Vital Signs Most recent to oldest [Reference Range]: 1 2 3 Height 160 cm (11/22/21 7:34 AM) 160 cm (11/22/21 12:01 AM) 160 cm (11/21/21 8:05 PM) Weight 101.6 kg (11/21/21 5:36 AM) 101.9 kg (11/19/21 5:31 PM) Oxygen Saturation [94-100 %] 99 % (11/22/21 7:34 AM) 100 % (11/22/21 12:01 AM) 100 % (11/21/21 8:05 PM) Pulse Rate [55-90 bpm] 89 bpm (11/22/21 8:19 AM) 89 bpm (11/22/21 7:34 AM) 90 bpm (11/22/21 12:01 AM) Body Mass Index [18.5-24.99 kg/m2] 39.8 kg/m2 *>HHI* (11/19/21 5:31 PM) Blood Pressure [90-138/55-84 mm Hg] 119/77mm Hg (11/22/21 8:19 AM) 119/77mm Hg (11/22/21 7:34 AM) 109/64mm Hg (11/22/21 12:01 AM) Respiratory Rate [16-30 br/min] 18 br/min (11/22/21 11:07 AM) 18 br/min (11/22/21 7:34 AM) 18 br/min (11/22/21 12:01 AM) Temperature [96.8-100.4 DegF] 98.3 DegF (11/22/21 7:34 AM) 97.9 DegF (11/22/21 12:01 AM) 98.4 DegF (11/21/21 8:05 PM) Mode of Delivery (Oxygen) Room air (11/22/21 7:34 AM) Room air (11/22/21 12:01 AM) Room air (11/21/21 8:05 PM) Blood pressure sites Arm, left (11/22/21 7:34 AM) Arm, left (11/22/21 12:01 AM) Arm, left (11/21/21 8:05 PM) Temperature Route Oral (11/22/21 7:34 AM) Oral (11/22/21 12:01 AM) Oral (11/21/21 8:05 PM) Dry Weight 101.9 kg (11/19/21 5:31 PM) Weight Obtained Via Standing scale (11/21/21 5:36 AM) Bed scale (11/19/21 5:31 PM) Dry Weight Obtained Via Bed scale (11/19/21 5:31 PM) Social History Social History Type Response Tobacco Use: 4 or less cigar ettes(less than 1/4 pack)/day in last 30 days. Interested in cessation: Yes. Yes, Type: Cigarettes. 17 Number of years:. 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 FINDINGS: LINES AND TUBES: Dual-lead left subclavian pacer/AICD wires are intact. LUNGS AND PLEURA: Clear lungs. Normal pulmonary vascularity. No pleural effusion. No pneumothorax. HEART, MEDIASTINUM AND LINDSEY: Heart is normal in size. Normal mediastinal and hilar contour. BONES AND SOFT TISSUES: No acute abnormality. IMPRESSION: No radiographic evidence of an acute cardiopulmonary process. I have personally reviewed the images and I agree with this report. WSN: [id number] Ordering Physician: Dagmar Vickers Dictated By: Vielka Jacobs MD Dictated Date/Time: 11/19/21 9:22 am Reviewed By: Glenroy Pavon MD Signed By: Glenroy Pavon MD Signed Date/Time: 11/19/21 9:27 am Transcribed By: AUGUSTINE Transcribed Date/Time: 11/19/21 9:00 am Patient Care team information Personnel Name: Zaynab Prince MD Address: Address: [address] [place] [address]
[2022-05-05 13:00] LABS: MANUAL DIFF FLAG NO
[2022-05-05 13:01] LABS: Basophils Percent Auto 0.3 % (0-2); Eosinophils Absolute Auto 0.1 X10*3/uL (0.0-0.4); Hematocrit 44.3 % (42.0-52.0); Hemoglobin 14.8 g/dl (14.0-18.0); Imm Gran Abs Auto 0.02 X10*3/uL (0.00-0.03); Imm Gran Pct Auto 0.2 % (0.0-0.4); Lymphocytes Absolute Auto 2.2 X10*3/uL (1.2-4.9); Lymphocytes Percent Auto 25.2 % (20-40); Mean Corpuscular HGB Conc 33.4 g/dl (31.0-36.0); Mean Corpuscular Hemoglobin 27.8 pg (27.0-33.0); Mean Corpuscular Volume 83.3 fL (80.0-98.0); Mean Platelet Volume 10.1 fL (9.4-12.4); Monocytes Absolute Auto 0.5 X10*3/uL (0.1-1.2); Monocytes Percent Auto 5.2 % (2-11); Neutrophils Absolute Auto 5.9 x10*3/uL (2.0-8.3); Neutrophils Percent Auto 68.1 % (45-73); Platelet Count 207 X10*3/uL (160-400); Red Blood Count 5.32 X10*6/uL (4.60-5.80); Red Cell Distribution Width 14.7 % (11.0-16.0); White Blood Count 8.7 X10*3/uL (4.8-10.8)
[2022-05-05 13:14] LABS: D Dimer High Sensitivity < 150 NG/ML
[2022-05-05 13:20] LABS: Alanine Aminotransferase 27 U/L (0-40); Albumin Level 4.2 g/dL (3.5-5.0); Alkaline Phosphatase 77 U/L (39-117); Anion Gap 13 (12-20); Aspartate Amino Transferase 15 U/L (5-37); Bilirubin Total 1.4 mg/dL (0.0-1.0); Blood Urea Nitrogen 18 mg/dL (9-16); Calcium 9.2 mg/dL (8.4-10.2); Carbon Dioxide 24 mmol/L (22-29); Chloride 107 mmol/L (96-108); Estimated Glomerular Filt Rate > 60; Glucose Random 123 mg/dL (60-115); Magnesium 1.9 mg/dL (1.6-2.6); Potassium 4.3 mmol/L (3.3-5.1); Sodium 140 mmol/L (135-145); Total Protein 6.7 g/dL (6.5-8.0)
[2022-05-05 13:22] LABS: B Type Natriuretic Peptide < 10 pg/mL (<100)
[2022-05-05 13:22] LABS: Troponin-I High Sensitivity < 3.5 ng/L (<3.5-35.0)
[2022-05-05 13:23] LABS: COVID-19 Test Negative (Negative); IDNOW Serial# 08D9AD1C; IDNOW Serial# BCCEAD1C; Influenza A Negative (Negative); Influenza B2 Negative (Negative)
[2022-05-05 14:10] LABS: Lipase 10 U/L (8-78)
[2022-05-05 15:11] VITALS: BP 122/75; PULSE 89; RESP 13; TEMP 36.3; O2SAT 97
== END 2022-05-05 15:21 | disposition home or self-care (01) ==
PROVIDERS: Physician Assistant; Physician Assistant Medical; Emergency Provider Emergency Medicine
DX: R09.1 Pleurisy (principal); R06.02 Shortness of breath; R07.89 Other chest pain; Z20.822 Contact with and (suspected) exposure to COVID-19; Z20.828 Contact with and (suspected) exposure to other viral communicable diseases; Z79.899 Other long term (current) drug therapy
CPT/HCPCS: 36415; 71045; 80053; 83690; 83735; 83880; 84484; 85025; 85379; 87502; 87635; 93005; 99283; 99284

== ENCOUNTER 2022-12-23 09:16 | Emergency (ER) | payer MEDICARE, MEDICAID, SELFPAY ==
--- NOTE | ~2022-12-23 | XR_ITS ---
EXAMINATION: XR CHEST CLINICAL INFORMATION: Hemoptysis. Productive cough. COMPARISON: 05/05/2022 TECHNIQUE: 2 views of the chest were obtained. FINDINGS: Low lung volumes with overcrowding of the vasculature at the lung bases. No focal consolidation. No pleural effusion. Cardiac silhouette is unchanged. Left chest wall permanent pacing device with leads projecting over the right atrium and right ventricle. XR/XR chest 2V IMPRESSION: No acute abnormality.
[2022-12-23 09:23] VITALS: BP 109/62; PULSE 90; RESP 18; O2SAT 95; BMI 42.5
[2022-12-23 10:07] LABS: IDNOW Serial# 08D9AD1C; Strep A Nucleic Acid Negative (Negative)
[2022-12-23 10:21] LABS: COVID-19 Test Negative (Negative); IDNOW Serial# 9DB6401D
--- NOTE | 2022-12-23 10:24 | ED_ITS ---
HPI - URI/Sore Throat General Chief Complaint: Upper Respiratory Symptoms Stated Complaint: Coughing up Mucuos Time Seen by Provider: 12/23/22 10:11 Source: patient, RN notes reviewed and old records reviewed Mode of arrival: ambulatory History of Present Illness HPI Narrative: 32-year-old male with a past medical history of cardiac defibrillator on Eliquis presenting to the ED complaining of productive cough w/ intermittent bloody stre aked phlegm since yesterday, nasal congestion, and sore throat. Reports notes bloody streaks when lying flat. Admits to cigarette smoking. Denies recent travel, history of clots, SOB, CP, difficulty/inability to swallow, pedal edema MD elicited complaint: cough, sore throat and nasal congestion Related Data Home Medications Medication Instructions Recorded Confirmed lorazepam 1 mg tablet 1 tab PO DAILY PRN Anxiety 10/23/21 10/23/21 nadolol 80 mg tablet 1 tab PO BID 10/23/21 10/23/21 quinidine gluconate 324 mg 1 tab PO TID 10/23/21 10/23/21 tablet,extended release Previous Rx's Medication Instructions Recorded lidocaine (PF) 100 mg/5 mL (2 %) 113.398 mg (5.6699 mL) IV Q15M PRN 10/24/21 intravenous syringe Heart Rate >300 #50 mL lidocaine (PF) 8 mg/mL (0.8 %) in 2,000 mg continuous IV infusion 10/24/21 5 % dextrose intravenous solution .[id number] #6,000 mL amoxicillin 875 mg-potassium 1 tab PO BID 7 days #14 tabs 05/05/22 clavulanate 125 mg tablet benzonatate 100 mg capsule 100 mg PO TID PRN cough #14 caps 12/23/22 prednisone 20 mg tablet 40 mg (2 x 20 mg) PO DAILY 5 days 12/23/22 #10 tabs Allergies Allergy/AdvReac Type Severity Reaction Status Date / Time shrimp [SHRIMP] Allergy Severe SWELLING Verified 05/05/22 12:38 DUST Allergy Unknown UNKNOWN Uncoded 10/24/19 16:26 shrimps Allergy Unknown Anaphylaxis Uncoded 10/23/21 20:46 Review of Systems Review of Systems: Constitutional: No Fever, No Chills ENT/Mouth: No Ear Pain, +Nasal Congestion, No Hoarseness, +sore throat, +Rhinorrhea, No Swallowing Difficulty Cardiovascular: No Chest Pain, No SOB Respiratory: + Cough, + Sputum, No Wheezing Gastrointestinal: No Nausea, No Vomiting, No Diarrhea, No Abdominal pain Musculoskeletal: No joint pain, No Myalgias, No Joint Swelling Skin: No Skin Lesions, No rash Neuro: No Weakness Yes all other systems are reviewed and are negative Constitutional: Constitutional: Reports as per [facility] Past Medical History Attestation statement: The following information was validated with the patient. Source: old records reviewed Medical History Cardiac defibrillator in place Family History Family History Other Family history non-contributory Social History Social History Household Members: Family Substance Use Type: Marijuana Advance Directives: No Advance Directives Information Provided: No Physical Exam Vital Signs: Vital Signs: Last Vital Signs Pulse 90 12/23/22 09:23 Resp 18 12/23/22 09:23 BP 109/62 12/23/22 09:23 Pulse Ox 95 12/23/22 09:23 O2 Del Method Room Air 12/23/22 09:23 BMI result Body Mass Index 42.5 Const: General: cooperative, healthy appearing and no acute distress Orientation/consciousness: patient oriented x3 Limitations: no limitations HEENT: Head: Yes normal to inspection and Yes atraumatic Ears: hearing grossly normal bilaterally and external ears normal General nose exam: Normal external nose present Face and sinus: Yes normal facial exam Mouth: Normal oral and palatal mucosa present Throat: Yes posterior oropharynx normal, Yes tonsils normal, Yes uvula midline, No uvula laterally displaced and No uvular edema Eyes: General: appearance normal, both eyes and all related structures EOM: EOMs intact bilaterally Neck: Neck: Yes normal visual inspection and Yes no meningeal signs Resp: Effort & Inspection: normal respiratory effort and no respiratory distress Auscultation: clear to auscultation bilaterally, no crackles and no wheezes Cardio: Rate: regular rate Heart sounds: S1 normal heart sound present and S2 normal heart sound present Skin: Rashes: no rashes Wounds: no wounds Neuro: General: patient oriented x3, tone normal and no meningeal signs Cranial nerves: Yes CN's II-XII intact bilaterally Gait exam (Neuro): Normal gait present Extrem: General: Yes normal to inspection and Yes no pedal edema Course Course Course Narrative: -COVID and rapid strep negative XR chest 2V IMPRESSION: No acute abnormality. Results discussed with patient including worrisome signs and symptoms and strict return precautions, and when to return to the emergency department. They verbalized understanding and feel safe for discharge at this time. Medical Decision Making Medical Decision Making MDM Narrative: 32-year-old male with a past medical history of cardiac defibrillator on Eliquis presenting to the ED complaining of productive cough w/ intermittent bloody streaked phlegm since yesterday, nasal congestion, and sore throat. On exam vital signs stable, NAD, nontoxic appearing, lungs CTA, no pedal edema. Talking in complete sentences. Concern for bronchitis versus pneumonia. Low suspicion for ACS/PE. Lower suspicion for malignancy. 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 Differential Diagnosis Differential Diagnoses: The differential diagnosis associated with the presentation includes As above Admission/Observation Consideration of admission/observation: Escalation of care including admission/observation considered Lab Data MDM Lab Attestation statement: I reviewed the patient's lab results. Labs: Lab Results 12/23/22 Range/Units 09:49 COVID-19 (TAMMI) Negative (Negative) COVID-19 Clin Com See Note S. pyogenes GrpA PIO Negative (Negative) Independent Interpretation I performed an independent interpretation of an: Plain X-Ray Radiology Impression Discussion of test interpretation with radiology: I have reviewed the radiologist's reading. External Record Review External record reviewed: Inpatient record, Office record, Outpatient record, Prior outpatient labs, Prior outpatient radiology, Primary care record and Outside ED record Tests considered The following testing was considered but not selected: As above Prescription Management I considered prescription management with: Pain Medication Chronic Conditions Patient?s care impacted by: Other Discharge Plan Discharge Clinical Impression: Bronchitis Patient Disposition: Home, Self-Care Instructions: Acute Bronchitis (ED) Additional Instructions: You tested negative for COVID and strep. Her x-ray does not show pneumonia You likely have bronchitis Prednisone as a steroid please take as prescribed Vishnu Barkley for cough Follow-up with her doctor Is symptoms persist or worsen return to the ED Prescriptions: New benzonatate 100 mg capsule 100 mg PO TID PRN (Reason: cough) Qty: 14 0RF prednisone 20 mg tablet 40 mg PO DAILY 5 Days Qty: 10 0RF No Action nadolol 80 mg tablet 1 tab PO BID quinidine gluconate 324 mg tablet extended release 1 tab PO TID lorazepam 1 mg tablet 1 tab PO DAILY PRN (Reason: Anxiety) lidocaine in 5 % dextrose (PF) 8 mg/mL (0.8 %) Parenteral Solution 2,000 mg continuous IV infusion .[id number] Qty: 6000 0RF lidocaine (PF) 100 mg/5 mL (2 %) Syringe 113.398 mg IV Q15M PRN (Reason: Heart Rate >300) Qty: 50 0RF amoxicillin-pot clavulanate 875-125 mg tablet 1 tab PO BID 7 Days Qty: 14 0RF Referrals: [place],[facility] [Primary Care Provider] - 5 days Interventions: ED Discharge Assessment Last Done: 12/23/22 11:15 Discharge Date/Time: 12/23/22 11:15
--- OUTSIDE RECORDS SUMMARY | 2022-12-23 10:33 | XMS_ITS | Continuity of Care Document ---
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 Start Date: 11/22/21 Status: Ordered mexiletine 150 mg oral capsule 1 capsule = 150 mg, By Mouth, Every 8 hours, 1 capsule 3 times daily at 8am, 4pm, 12am(midnight) - next dose 11/22 4pm. Follow up closely with primary care and [facility] cardiology., # 90 capsule, 0 Refills, [...] List Condition Confirmation Course Effective Dates Status 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 Interested in cessation: Yes. Yes, Type: Cigarettes. 17 Number of years:. Sex Patient Care team information Care Team Personnel Name: Gissel Vilchis RN Position: [facility] RN Member Role: Primary Care Nurse Care Team Related Persons Name: TAJ SAI Address: [address] [place] [address]
== END 2022-12-23 11:15 | disposition home or self-care (01) ==
PROVIDERS: Emergency Provider Emergency Medicine
DX: J40 Bronchitis, not specified as acute or chronic (principal); R05.9 Cough, unspecified; R09.81 Nasal congestion; J02.9 Acute pharyngitis, unspecified; Z11.52 Encounter for screening for COVID-19; Z20.822 Contact with and (suspected) exposure to COVID-19
CPT/HCPCS: 71046; 87635; 87651; 99282; 99283

== ENCOUNTER 2023-04-11 00:11 | Emergency (ER) | payer MEDICARE, MEDICAID, SELFPAY ==
--- NOTE | ~2023-04-11 | CT_ITS ---
EXAMINATION: CT ABDOMEN AND PELVIS WITHOUT CONTRAST CLINICAL INFORMATION: Abdominal pain COMPARISON: 02/20/2022 TECHNIQUE: Multidetector volumetric imaging was performed from the superior aspect of the liver through the pubic symphysis. Sagittal and coronal reformatted images were obtained on the technologist's workstation. This CT examination was performed using dose optimization techniques as appropriate, variously including the following: *Automated exposure control *Adjustment of mA and/or kV according to patient size (this includes techniques or standardized protocols for targeted exams where dose is matched to indication/reason for exam; i.e. extremities or head) *Use of iterative reconstruction technique DLP: 931 mGy-cm FINDINGS: LUNG BASES: Subsegmental bibasilar atelectasis. LIVER, GALLBLADDER, AND BILIARY TREE: The liver is normal in size, shape, and attenuation. No focal hepatic lesion or biliary ductal dilatation is identified on this noncontrast exam. The gallbladder is unremarkable with no evidence of radiopaque gallstones, gallbladder wall thickening, or obvious pericholecystic inflammatory changes. PANCREAS: Mild fatty atrophy. SPLEEN: Unremarkable. ADRENAL GLANDS: Unremarkable. KIDNEYS AND URETERS: No hydronephrosis or obstructing calculus bilaterally. BLADDER: Empty and not adequately evaluated. GASTROINTESTINAL TRACT: Mild fluid is present throughout the colon, a finding which can be associated with diarrhea. No evidence of bowel obstruction or significant wall thickening. The appendix is unremarkable. No free fluid or free air is seen. ABDOMINAL WALL: No significant hernia is appreciated. LYMPH NODES: Normal. VASCULAR: Unremarkable. PELVIC VISCERA: Unremarkable. OSSEOUS STRUCTURES: Unremarkable. CT/CT abdomen pelvis wo IV con IMPRESSION: Mild fluid throughout the colon, a finding which can be associated with diarrhea. Otherwise no acute findings identified in the abdomen/pelvis.
[2023-04-11 00:17] VITALS: BP 124/76; PULSE 88; O2SAT 98
[2023-04-11 00:19] VITALS: BP 112/78; PULSE 89; RESP 20; TEMP 36.7; O2SAT 96; BMI 42.5
[2023-04-11 01:15] LABS: MANUAL DIFF FLAG NO
[2023-04-11 01:31] LABS: Alanine Aminotransferase 44 U/L (0-40); Albumin Level 4.7 g/dL (3.5-5.0); Alkaline Phosphatase 74 U/L (39-117); Anion Gap 16 (12-20); Aspartate Amino Transferase 22 U/L (5-37); Bilirubin Direct 0.3 mg/dL (0.0-0.5); Bilirubin Total 0.9 mg/dL (0.0-1.0); Blood Urea Nitrogen 24 mg/dL (9-16); Calcium 10.3 mg/dL (8.4-10.2); Carbon Dioxide 21 mmol/L (22-29); Chloride 108 mmol/L (96-108); Creatinine Clr Calc Pharmacy 109.9; Estimated Glomerular Filt Rate > 60; Glucose Random 126 mg/dL (60-115); Lipase 20 U/L (8-78); Sodium 140 mmol/L (135-145); Total Protein 8.1 g/dL (6.5-8.0)
[2023-04-11 01:40] LABS: Basophils Percent Auto 0.2 % (0-2); Eosinophils Absolute Auto 0.1 X10*3/uL (0.0-0.4); Hematocrit 54.4 % (42.0-52.0); Hemoglobin 18.3 g/dl (14.0-18.0); Imm Gran Abs Auto 0.04 X10*3/uL (0.00-0.03); Imm Gran Pct Auto 0.4 % (0.0-0.4); Lymphocytes Absolute Auto 0.7 X10*3/uL (1.2-4.9); Lymphocytes Percent Auto 7.3 % (20-40); Mean Corpuscular HGB Conc 33.6 g/dl (31.0-36.0); Mean Corpuscular Hemoglobin 28.5 pg (27.0-33.0); Mean Corpuscular Volume 84.7 fL (80.0-98.0); Mean Platelet Volume 10.4 fL (9.4-12.4); Monocytes Absolute Auto 0.3 X10*3/uL (0.1-1.2); Neutrophils Absolute Auto 7.9 x10*3/uL (2.0-8.3); Neutrophils Percent Auto 88.1 % (45-73); Platelet Count 225 X10*3/uL (160-400); Red Blood Count 6.42 X10*6/uL (4.60-5.80); White Blood Count 8.9 X10*3/uL (4.8-10.8)
--- NOTE | 2023-04-11 01:53 | ED.ABDPAIN ---
HPI - Abdominal Pain General Chief Complaint: Abdominal Pain Stated Complaint: ABD PAIN VOMITING AND DIARRHEA Time Seen by Provider: 04/11/23 01:41 Source: patient, family (Spouse) and EMS Mode of arrival: EMS Limitations: no limitations History of Present Illness HPI narrative: 32-year-old male with complicated past medical and cardiac history including ventricular tachycardia, implanted defibrillator, and pulmonary embolism on Eliquis for it. Patient presented for evaluation of abdominal pain nausea, vomiting, nonbloody watery diarrhea after eating hot dogs for lunch at 15:00 yesterday symptoms started shortly after. No fever, no chills, no CP, no SOB. Patient reported multiple vomiting and diarrhea bowel movement. Related Data Home Medications Medication Instructions Recorded Confirmed lorazepam 1 mg tablet 1 tab PO DAILY PRN Anxiety 10/23/21 10/23/21 nadolol 80 mg tablet 1 tab PO BID 10/23/21 10/23/21 quinidine gluconate 324 mg 1 tab PO TID 10/23/21 10/23/21 tablet,extended release Previous Rx's Medication Instructions Recorded lidocaine (PF) 100 mg/5 mL (2 %) 113.398 mg (5.6699 mL) IV Q15M PRN 10/24/21 intravenous syringe Heart Rate >300 #50 mL lidocaine (PF) 8 mg/mL (0.8 %) in 2,000 mg continuous IV infusion 10/24/21 5 % dextrose intravenous solution .[id number] #6,000 mL amoxicillin 875 mg-potassium 1 tab PO BID 7 days #14 tabs 05/05/22 clavulanate 125 mg tablet benzonatate 100 mg capsule 100 mg PO TID PRN cough #14 caps 12/23/22 prednisone 20 mg tablet 40 mg (2 x 20 mg) PO DAILY 5 days 12/23/22 #10 tabs omeprazole 40 mg capsule,delayed 40 mg PO DAILY #14 caps 04/11/23 release ondansetron 4 mg disintegrating 4 mg PO Q8-12H PRN nausea and 04/11/23 tablet vomiting #7 tabs Allergies Allergy/AdvReac Type Severity Reaction Status Date / Time shrimp [SHRIMP] Allergy Severe SWELLING Verified 04/11/23 00:23 DUST Allergy Unknown UNKNOWN Uncoded 04/11/23 00:23 shrimps Allergy Unknown Anaphylaxis Uncoded 04/11/23 00:23 Review of Systems Review of Systems All other systems are reviewed and are negative Constitutional: Reports as per HPI and Reports no additional constitutional complaints Eyes: Reports as per HPI and Reports no additional eye complaints Reports system reviewed and no additional complaints, except as documented Cardiovascular: Reports as per HPI and Reports no additional cardiovascular complaints Respiratory: Reports as per HPI and Reports no additional respiratory complaints Gastrointestinal: Reports as per HPI and Reports no additional gastrointestinal complaints Genitourinary: Reports no additional female genitourinary complaints Musculoskeletal: Reports no additional musculoskeletal complaints Skin/Breast: Reports system reviewed and no additional complaints, except as docu Psychiatric: Reports no additional psychiatric complaints Endocrine: Reports no additional endocrine complaints Hematologic/Lymphatic: Reports no additional hematologic/lymphatic complaints Allergic/Immunologic: Reports no additional allergic/immunologic complaints Reports system reviewed and no additional complaints, except as documented and Reports Abnormal speech present [facility] Past Medical History Medical History Cardiac defibrillator in place Family History Family History Other Family history non-contributory Social History Social History Household Members: Family Substance Use Type: Marijuana Advance Directives: No Advance Directives Information Provided: Yes Physical Exam ED Vital Signs: Vital Signs - 24 hr 04/11/23 00:19 04/11/23 02:06 04/11/23 04:30 Temperature 98.1 F 97.5 F 98.2 F Pulse Rate 89 89 89 Respiratory Rate 20 18 20 Blood Pressure 112/78 125/89 98/65 Pulse Oximetry 96 97 96 Oxygen Delivery Method Room Air Room Air Room Air 04/11/23 06:14 Temperature 98.1 F Pulse Rate 82 Respiratory Rate 18 Blood Pressure 108/62 Pulse Oximetry 97 Oxygen Delivery Method Room Air BMI result Body Mass Index 42.5 Vital signs have been reviewed and appear to be correct. Blood pressure elevated. Heart rate normal. Respiratory rate normal. Temperature normal. Oxygen saturation normal. Appearance: Alert. Oriented X3. No acute distress. Head: Normal external exam. Normocephalic. Atraumatic. No Morton signs noted. No raccoon eyes noted Eyes: PERRLA. EOMI. Conjunctiva and sclera normal. Eyelids normal. ENT: TM's Normal. Pharynx normal. Uvula midline. Moist mucous membranes. No trismus noted. No drooling noted. No muffled voice noted. Neck: Normal inspection. Neck supple. FROM. No adenopathy. Thyroid Normal. No meningeal signs. No neck mass noted. CVS: Normal heart rate and rhythm. Heart sound normal. No murmurs noted. Pulses normal throughout. Respiratory: No respiratory distress. Painless inspiration. Breath sounds normal. No wheezes/rales/rhonchi noted. Chest nontender. No accessory muscle usage noted or decreased air movement noted. Abdomen: Soft, epigastric tenderness, no guarding, no rebound tenderness. Bowel sounds normal in all 4 quadrants. No distention noted. No organomegaly noted. No visible injury noted. Back: No CVA tenderness. Full range of motion noted. Skin: Skin warm and dry. Normal skin color. Normal skin turgor. No rashes/lesions/lacerations noted. Extremities: No lower extremity edema. Extremities exhibit normal range of motion. Extremities nontender. Neuro: Oriented X 3. Cranial nerve exam: II-XII are grossly intact No motor deficit. No sensory deficit. Reflexes normal. Course Reevaluation(s) Reevaluation #1: Patient received IV fluids, pain medication, antinausea medication. CT is consistent with enteritis/gastroenteritis and watery diarrhea. Patient already feels better, able to tolerate p.o. intake while in the emergency department, will discharge to follow-up with PCP. Time: 06:49 Medical Decision Making Differential Diagnosis Differential Diagnoses: The differential diagnosis associated with the presentation includes (Gastroenteritis, food poisoning, colitis, SOB, diverticulitis, pancreatitis, dehydration, HECTOR, electrolyte derangement, severe anemia.) Admission/Observation Consideration of admission/observation: Escalation of care including admission/observation considered Lab Data MDM Lab Attestation statement: I reviewed the patient's lab results. 04/11/23 01:33 04/11/23 01:10 Labs: Lab Results 04/11/23 04/11/23 04/11/23 Range/Units 01:10 01:33 02:52 WBC 8.9 (4.8-10.8) X10*3/uL RBC 6.42 H D (4.60-5.80) X10*6/uL Hgb 18.3 H D (14.0-18.0) g/dl Hct 54.4 H D (42.0-52.0) % MCV 84.7 (80.0-98.0) fL MCH 28.5 (27.0-33.0) pg MCHC 33.6 (31.0-36.0) g/dl RDW 14.0 (11.0-16.0) % Plt Count 225 (160-400) X10*3/uL MPV 10.4 (9.4-12.4) fL Immature Gran % (Auto) 0.4 (0.0-0.4) % Neut % (Auto) 88.1 H (45-73) % Lymph % (Auto) 7.3 L (20-40) % [place] % (Auto) 3.0 (2-11) % Eos % (Auto) 1.0 (0-4) % Baso % (Auto) 0.2 (0-2) % Lymph # (Auto) 0.7 L (1.2-4.9) X10*3/uL [place] # (Auto) 0.3 (0.1-1.2) X10*3/uL Eos # (Auto) 0.1 (0.0-0.4) X10*3/uL Baso # (Auto) 0.0 (0.0-0.2) X10*3/uL Abs Immat Gran (auto) 0.04 H (0.00-0.03) X10*3/uL Absolute Neuts (auto) 7.9 (2.0-8.3) x10*3/uL Absolute Nucleated RBC 0.000 (0.0-0.012) X10*3/uL Nucleated RBC % (auto) 0.0 (0.0-0.2) /100WBC Sodium 140 (135-145) mmol/L Potassium 5.0 (3.3-5.1) mmol/L Chloride 108 (96-108) mmol/L Carbon Dioxide 21 L (22-29) mmol/L Anion Gap 16 (12-20) BUN 24 H (9-16) mg/dL Creatinine 1.06 (0.5-1.4) mg/dL Estim Creat Clear Calc 109.9 Estimated GFR > 60 Random Glucose 126 H (60-115) mg/dL Calcium 10.3 H D (8.4-10.2) mg/dL Total Bilirubin 0.9 (0.0-1.0) mg/dL Direct Bilirubin 0.3 (0.0-0.5) mg/dL AST 22 (5-37) U/L ALT 44 H (0-40) U/L Alkaline Phosphatase 74 (39-117) U/L Total Protein 8.1 H (6.5-8.0) g/dL Albumin 4.7 (3.5-5.0) g/dL Lipase 20 (8-78) U/L Urine Color Dark Yellow Urine Appearance Clear Urine pH 5.5 (5.0-9.0) Ur Specific [place] >= 1.030 H (1.005-1.025) Urine Protein 30 (1+) H (Neg-Trace) mg/dL Urine Glucose (UA) Negative (Negative) mg/dL Urine Ketones Trace (Negative) mg/dL Urine Blood Negative (Negative) Urine Nitrite Negative (Negative) Ur Leukocyte Esterase Negative (Negative) Urine RBC 0-2 (0-2) /HPF Urine WBC 0-5 (0-5) /HPF Ur Squamous Epith Cells 3-5 (0-2) /HPF Urine Bacteria None Seen (None Seen) Hyaline Casts 0-2 (0-2) /LPF Independent Interpretation I performed an independent interpretation of an: CT Scan (Abdomen and pelvis:Mild fluid throughout the colon, a finding which can be associated with diarrhea. Otherwise no acute findings identified in the abdomen/pelvis. ) Radiology Impression Discussion of test interpretation with radiology: I have reviewed the radiologist's reading. Medications Administered Discontinued Medications Generic Name Dose Route Start Last Admin Trade Name Dudleyq PRN Reason Stop Dose Admin Al Hydroxide/Mg Hydroxide 30 ml 04/11/23 01:51 04/11/23 02:05 Magnesium Hydrox/Alum Hydrox 30 Ml Oral.Susp PO 04/11/23 01:52 30 ml ONCE ONE Administration Famotidine 20 mg 04/11/23 01:51 04/11/23 02:05 Famotidine/Pf 20 Mg/2 Ml Vial IVPUSH 04/11/23 01:52 20 mg ONCE ONE Administration Sodium Chloride 1,000 mls @ 999 mls/hr 04/11/23 01:51 04/11/23 03:07 Ns IV 04/11/23 02:51 Infused .Q1H1M ONE Infusion Ketorolac Tromethamine 30 mg 04/11/23 02:58 04/11/23 03:04 Ketorolac Tromethamine 30 Mg/Ml Vial IVPUSH 04/11/23 02:59 30 mg ONCE ONE Administration Morphine Sulfate 1 mg 04/11/23 02:41 04/11/23 02:49 Morphine Sulfate 2 Mg/Ml Cartridge IVPUSH 04/11/23 02:42 1 mg ONCE ONE Administration Protocol Ondansetron HCl 4 mg 04/11/23 01:51 04/11/23 02:05 Ondansetron Hcl 4 Mg/2 Ml Vial IVPUSH 04/11/23 01:52 4 mg ONCE ONE Administration Critical Care Time Critical Care Time Critical Care Time: Yes Total Critical Care Time: 45 Attestation: I spent 60 minutes providing critical care service to the patient, this including time spent at the bedside to evaluate the patient, reassess the patient, monitoring vital signs, review labs, and radiographic studies, counseling the patient/family, disposition the patient. Discharge Plan Discharge Clinical Impression: Gastroenteritis Patient Disposition: Home, Self-Care Instructions: Gastroenteritis (ED) Prescriptions: New ondansetron 4 mg tablet,disintegrating 4 mg PO Q8-12H PRN (Reason: nausea and vomiting) Qty: 7 0RF omeprazole 40 mg capsule,delayed release(DR/EC) 40 mg PO DAILY Qty: 14 0RF No Action nadolol 80 mg tablet 1 tab PO BID quinidine gluconate 324 mg tablet extended release 1 tab PO TID lorazepam 1 mg tablet 1 tab PO DAILY PRN (Reason: Anxiety) lidocaine in 5 % dextrose (PF) 8 mg/mL (0.8 %) Parenteral Solution 2,000 mg continuous IV infusion .[id number] Qty: 6000 0RF lidocaine (PF) 100 mg/5 mL (2 %) Syringe 113.398 mg IV Q15M PRN (Reason: Heart Rate >300) Qty: 50 0RF amoxicillin-pot clavulanate 875-125 mg tablet 1 tab PO BID 7 Days Qty: 14 0RF benzonatate 100 mg capsule 100 mg PO TID PRN (Reason: cough) Qty: 14 0RF prednisone 20 mg tablet 40 mg PO DAILY 5 Days Qty: 10 0RF
[2023-04-11] MEDS: Magnesium Hydrox/Alum Hydrox 30 ML ORAL.SUSP PO (02:05)
[2023-04-11] MEDS: ondansetron HCL 4 MG/2 ML VIAL IVPUSH (02:05)
[2023-04-11] MEDS: Famotidine/PF 20 MG/2 ML VIAL IVPUSH (02:05)
[2023-04-11 02:06] VITALS: BP 125/89; PULSE 89; RESP 18; TEMP 36.4; O2SAT 97
[2023-04-11] MEDS: 0.9 % Sodium Chloride 1,000 ML 999 ML IV (02:06)
--- NOTE | 2023-04-11 02:07 | MHC.EDTECH ---
This tech took over care of patient at 0100AM,hourly rounds and vitals completed,patient unable to give a urine at this time,will re-attempt
[2023-04-11] MEDS: Morphine Sulfate 2 MG/ML CARTRIDGE 1 MG IVPUSH (02:49)
[2023-04-11 03:00] LABS: Appearance Urine Clear; Color Urine Dark Yellow; Glucose Urine UA Negative (Negative); Leukocyte Esterase Urine Negative (Negative); Nitrite Urine Negative (Negative); PH 5.5 (5.0-9.0); Specific Gravity - Urine >= 1.030 (1.005-1.025); UMIC TRIGGER UACC YES; Urine Blood Negative (Negative); Urine Ketones Trace mg/dL (Negative); Urine Protein 30 (1+) mg/dL (Neg-Trace)
[2023-04-11 03:02] LABS: Bacteria Urine None Seen (None Seen); Hyaline Casts Urine 0-2 /LPF (0-2); RBC Urine 0-2 /HPF (0-2); WBC Urine 0-5 /HPF (0-5)
[2023-04-11] MEDS: Ketorolac Tromethamine 30 MG/ML VIAL IVPUSH (03:04)
[2023-04-11 04:30] VITALS: BP 98/65; PULSE 89; RESP 20; TEMP 36.8; O2SAT 96
--- NOTE | 2023-04-11 04:43 | MHC.EDTECH ---
Hourly rounds and vitals completed,patient is resting with eyes closed at this time,call murray in reach
[2023-04-11 06:14] VITALS: BP 108/62; PULSE 82; RESP 18; TEMP 36.7; O2SAT 97
[2023-04-11] MEDS: oxyCODONE HCl Immed Release 5 MG TABLET PO (07:22)
--- NOTE | 2023-04-11 07:48 | PC.NURSE ---
This RN resumed care of patient at 0700, d/c placed at this time, this RN went into room to bring paperwork and patient reported he needed to talk with a doctor because his pain was coming back. This RN went over d/c paperwork, results from scans and labs again with patient as provider and night RN had already gone over results multiple times with patient and GF at bedside. Pt IV removed at this time. Pt then ambulated to bathroom, of which safety cord was pulled. RN/tech in bathroom, pt had placed himself on the floor. When this RN asked pt why he was laying on the bathroom floor he stated it was because of his pain. This RN advised pt that he needed to get off the bathroom floor as we were not going to medicate him in the bathroom and that he needed to not be placing himself on the floor. Provider aware and went in to talk with patient, offered 1x dose of oxycode. This RN brought into patient security outside of room for assistance if needed to escort patient out. Pt GF helped patient get dresssed and wheeled pt out by w/c. he was a/ox4, stable on RA at time of d/c Pt advised to call his PCP and follow up with gastro.
== END 2023-04-11 07:58 | disposition home or self-care (01) ==
PROVIDERS: Emergency Provider Emergency Medicine
DX: K52.9 Noninfective gastroenteritis and colitis, unspecified (principal); R10.9 Unspecified abdominal pain; R11.2 Nausea with vomiting, unspecified; I47.20 Ventricular tachycardia, unspecified; Z86.711 Personal history of pulmonary embolism; Z79.01 Long term (current) use of anticoagulants; Z79.899 Other long term (current) drug therapy
CPT/HCPCS: 36415; 74176; 80048; 80076; 81001; 81003; 83690; 85025; 96361; 96374; 96375; 99284; 99285; J1885; J2270; J2405

== ENCOUNTER 2024-01-19 11:49 | Outpatient (REF) | payer MEDICARE, MEDICAID, SELFPAY ==
--- NOTE | ~2024-01-19 | XR_ITS ---
EXAMINATION: XR CHEST CLINICAL INFORMATION: 1 week h/o productive cough. COMPARISON: XR Chest 12/23/2022 TECHNIQUE: 2 views of the chest were obtained. FINDINGS: Dual lead atrioventricular AICD device is in place left chest. Leads intact and terminate in the right atrium and right ventricle. The cardiac, hilar, mediastinal contours are normal. There are mildly increased chronic linear retrocardiac opacities representing scarring. Otherwise, the lungs are clear. There are no consolidations, effusions, or pneumothoraces. No suspicious lytic soft tissue or bone abnormality. XR/XR chest 2V IMPRESSION: No active pulmonary disease. Electronically signed by: Sumit Russell MD 01/24/2024 02:39 PM EST
[2024-01-20 10:16] LABS: Adenovirus PCR Not Detected (Not Detect.); Bordetella parapertussis PCR Not Detected (Not Detect.); Bordetella pertussis PCR Not Detected (Not Detect.); Chlamydia pneumoniae PCR Not Detected (Not Detect.); Coronavirus 229E PCR Not Detected (Not Detect.); Coronavirus HKU1 PCR Not Detected (Not Detect.); Coronavirus NL63 PCR Not Detected (Not Detect.); Coronavirus OC43 PCR Not Detected (Not Detect.); Human metapneumovirus PCR Not Detected (Not Detect.); Influenza A PCR Not Detected (Not Detect.); Influenza B PCR Not Detected (Not Detect.); Mycoplasma pneumoniae PCR Not Detected (Not Detect.); Parainfluenza 1 PCR Not Detected (Not Detect.); Parainfluenza 2 PCR Not Detected (Not Detect.); Parainfluenza 3 PCR Not Detected (Not Detect.); Parainfluenza 4 PCR Not Detected (Not Detect.); RSV PCR Not Detected (Not Detect.); Rhino/Enterovirus PCR Not Detected (Not Detect.)
[2024-01-20 10:19] LABS: SARS-CoV-2 PCR Not Detected (Not Detect.)
== END 2024-01-19 11:50 | disposition home or self-care (01) ==
LOC: HO.HHCX 11:49
PROVIDERS: Visit Provider Emergency Medicine
DX: R05.1 Acute cough (principal)
CPT/HCPCS: 71046; 87633

== ENCOUNTER → 2024-01-19 11:51 | Outpatient (BNV) | payer MEDICARE, MEDICAID, SELFPAY | PROVIDERS: Visit Provider Radiology Diagnostic Radiology | DX: R05.1 Acute cough (principal) | CPT/HCPCS: 71046 ==

== ENCOUNTER 2024-04-04 13:42 | Outpatient (REF) | payer MEDICARE, MEDICAID, SELFPAY ==
--- NOTE | ~2024-04-04 | XR_ITS ---
EXAMINATION: XR CHEST 2 VIEWS HISTORY: persistent cough and chest congestion COMPARISON: Comparison is made with the prior examination dated 01/17/2024. FINDINGS: PA and lateral views of the chest are submitted. The left subclavian dual chamber pacemaker is unchanged in position. The lungs are expanded and clear. There is no pleural effusion, pneumothorax, or pulmonary vascular congestion. The heart is normal in size. The bones are intact. XR/XR chest 2V IMPRESSION: No acute cardiopulmonary abnormality. Electronically signed by: Yosef Hoffman MD 04/04/2024 02:03 PM CHAD
--- OUTSIDE RECORDS SUMMARY | 2024-04-04 16:34 | XMS_ITS | Encounter Summary ---
Author Organization [employer] Address [address] [place] [address] [place] [address] Care Team Providers Care Commercial Lender Name Role Phone Tomasa Gregg Primary Care Provider [phone] Anupama Rodriguez MD Primary Care Pro vider Encounter Details Date Type Department Care Team (Late st Contact Info) Description 02/02/2022 Telephone [facility] [address] [place] [id number] Tomasa Gregg FNP [address] [place] [address] Dept [place] [address] Social History Tobacco Use Types Packs/Day Years Used Date Smoking Tobacco: Never Assessed Sex and Gender Information Value Date Recorded Sex Assigned at Male 12/06/2021 10:31 AM EDT Legal Sex Male 10:31 AM EDT Gender Identity Male 12/06/2021 10:31 AM EDT Sexual Orientation Choose not to disclose 2021 10:31 AM EDT documented as of this encounter Plan of Treatment Not on file documented as of this encounter Visit Diagnoses Not on filedocumented in this encounter Care Teams Commercial Lender Relationship Specialty Start Date End Date Tomasa Gregg FNP PCP - General Family Medicine 07/30/21 06/30/22 Anupama Rodriguez MD [address] [place] [address] PCP - General Internal Medicine 07/01/22 Lillian Hutchins RN Care Manager 01/04/23 documented as of this encounter
--- OUTSIDE RECORDS SUMMARY | 2024-04-04 16:34 | XMS_ITS | Clinical Summary ---
Author Organization [employer] Address [address] [facility] 7t [place] [address] Care Team Providers Care Office Messenger Name Role Phone Anupama Rodriguez MD Primary Care Pro vider Allergies Active Allergy Reactions Criticality Noted Date Comments Shrimp Extract 03/10/2015 Medications acyclovir (Zovirax) 400 MG tablet Take 1 tablet (400 mg) by mouth every 12 (twelve) hours. 30 tablet 08/04/2022 Active apixaban (Eliquis) 5 MG tablet Take 1 tablet by mouth every 12 (twelve) hours. Active LORazepam (Ativan) 1 MG tablet Take 1 tablet by mouth at bed time. 11/29/2021 Active mexiletine (Mexitil) 150 MG capsule Take 1 capsule by mouth every 8 (eight) hours. Active nadolol (Corgard) 80 MG tablet Take 1 tablet by mouth every 12 (twelve) hours. Active quiNIDine gluconate 324 MG ER tablet take 1 tablet by oral route three times daily Active Tirzepatide-Pollo ght Management (Zepbound) 2.5 MG/0.5ML solution auto-injector Inject 2.5 mg under the skin every 7 (seven) days. 12/21/2023 Active predniSONE (Deltasone) 20 MG tablet Take 3 tablets (60 mg) by mouth Once per day for 5 days. 15 tablet 04/04/2024 Active azithromycin (Zithromax) 250 MG tablet Take two tabs PO daily x one day then one tab PO daily x four days 6 tablet 04/04/2024 Active guaiFENesin (Mucinex) 600 MG 12 hr tablet Take 1 tablet (600 mg) by mouth if needed in the morning and at bedtime for cough or congestion. Do not crush, chew, or split. 30 tablet 04/04/2024 5 Active Active Problems Patient Care Coordination No te Formatting of this note migh t be different from the original. C3/CM Lillian Hutchins RN Problem Noted Date Diagnosed Date Tobacco dependence 01/19/2024 Chronic hoarseness 12/13/2021 Anxiety disorder 05/13/2020 Genital herpes simplex 05/13/2020 Cardiomyopathy 05/03/2016 S/P ICD (internal cardiac defibrillator) procedu re 05/03/2016 Encounters Date Type Department Care Team Description 04/04/2024 1:20 PM EST Office Visit [facility] [address] [address] Chronic bronchitis, unspecified chronic bronchitis type (CMS/HCC) (Primary Dx) 04/04/2024 [facility] [address] [address] India Gifford DO Results 04/04/[address] [address] Anupama Rodriguez MD Medication Question 03/21/[address] [address] Anupama Rodriguez MD Nurse Triage 01/26/2024 [facility] [address] [address] Laquita Palomares RN Results 01/25/2024 Telephone [facility] [address] [address] Laquita Palomares RN Results 01/19/2024 11:00 AM EST [facility] [address] [address] Gopal Shelley MD Acute cough (Primary Dx); Tobacco dependence 01/18/[address] [address] Anupama Rodriguez MD Nurse Triage from Last 3 Months Immunizations Name Administration Dates Next Due Influenza, seasonal, injectable, preservative fr ee 02/27/2016 Pneumococcal Polysaccharide PPSV23 02/27/2016 Social History Tobacco Use Types Packs/Day Years Used Date Smoking Tobacco: Every Day Cigarettes Smokeless Tobacco: Never Tobacco Cessation:Ready to Q uit: Not Asked; Counseling Given: Not Answered Housing Stability Answer Date Recorded What is your housing situation today? I have yandy joiner 12/19/[address] you li ve. Do you have problems with any of the following? None of the above 12/19/2022 Food Insecurity Answer Date Recorded Within the past 12 months, y ou worried that your food would run out before you got money to buy more: Never True 12/19/2022 Within the past 12 months,th e food you bought just didn't last and you didn't have enough money to get more: Never True Transportation Answer Date Recorded In the past 12 months, has l ack of transportation kept you from medical appts, meetings, work or from getting things needed for daily living? No 12/19/2022 Utilities Answer Date Recorded In the past 12 months, has t he electric, gas, oil or water company threatened to shut off services in your home? No 12/19/2022 Sex and Gender Information Value Date Recorded Sex Assigned at Male 12/06/2021 10:31 AM EDT Legal Sex Male 10:31 AM EDT Gender Identity Male 12/06/2021 10:31 AM EDT Sexual Orientation Choose not to disclose 2021 10:31 AM EDT Last Filed Vital Signs Vital Sign Reading Time Taken Comments Blood Pressure 140/89 04/04/2024 12:59 PM EST Pulse 89 04/04/2024 12:59 PM EST Temperature 36.8 ??C (98.3 ??F) 04/04/2024 12:[address] Respiratory Rate 18 04/04/2024 12:59 PM EST Oxygen Saturation 95% 04/04/2024 12:59 PM EST Inhaled Oxygen Concentration - - Weight 118 kg (260 lb) 04/04/2024 12:59 PM EST Height 160 cm (5' 3 ) 05/13/2020 12:04 AM EDT Body Mass Index 46.06 05/13/2020 12:04 AM EDT Plan of Treatment Health Maintenance Due Date Last Done Comments Depression Screening 1990 HIV Screening 1990 Alcohol/Substance Use Screening 2002 Family Planning (PISQ) 2005 Hepatitis C Screening 2008 DTaP/Tdap/Td Vaccines (1 - Tdap) 2009 Hepatitis A Vaccines (1 of 2 - Risk 2-dose series) 2009 Hepatitis B Vaccines (1 of 3 - 19+ 3-dose series) 2009 Pneumococcal Vaccine: Pediatrics (0 to 5 Years) and At-Risk Patients (6 to 49) Years) (2 of 2 - PCV) 02/26/2017 02/27/2016 COVID-19 Vaccine (3 - 2023-2 5 season) 2023 06/12/2020, 05/15/2020 Influenza Vaccine (#1) 2023 02/27/2016 SDOH Screening 12/20/2023 12/19/2022 Tobacco Screening 01/18/2025 01/19/2024 Lipid Panel 05/13/2025 05/13/2020 Zoster Vaccines (1 of 2) 2040 RSV Patients and Patients Aged 60 years or older (1 - 1-dose 75+ series) 2065 HIB Vaccines Aged Out No longer eligi ble based on patient's age to complete this topic HPV Vaccines Aged Out No longer eligi ble based on patient's age to complete this topic IPV Vaccines Aged Out No longer eligi ble based on patient's age to complete this topic Meningococcal Vaccine Aged Out No nakita joana eligible based on patient's age to complete this topic RSV under 20 months Aged Out No longe r eligible based on patient's age to complete this topic Rotavirus Vaccines Aged Out No longer eligible based on patient's age to complete this topic Procedures Procedure Name Priority Date/Time Associated Diagnosis Comments XR CHEST 2 VIEWS STAT 04/04/2024 1:44 PM EST Chronic bronchitis, unspecified chronic bronchitis type (CMS/HCC) RESPIRATORY VIRAL PANEL PCR Routine 01/19/2024 1:18 PM EST Acute cough XR CHEST 2 VIEWS Routine 01/19/2024 11:5 1 AM EST Acute cough POCT INFLUENZA B (ID NOW RAPID MOLECULAR) Routine 01/19/2024 11:48 AM EST Acute cough POCT INFLUENZA A (ID NOW RAPID MOLECULAR) Routine 01/19/2024 11:48 AM EST Acute cough POCT RAPID COVID ANTIGEN Routine 01/19/2024 11:48 AM EST Acute cough LIPID PANEL, STANDARD Routine 05/13/2020 2:11 PM EDT from Last 3 Months or Most Recently Relevant to Health Maintenance Results * XR Chest 2 Views (04/04/2024 1:44 PM EST) Only the most recent of2 resultswithin the time period is included. Anatomical Region Laterality Modality Chest Radiographic Vanessa ging 04/04/2024 1:44 PM EST Narrative 04/04/2024 2:06 PM EST ?[facility] ?[address] ?[place] [address] ?XRay Report ? Signed ? Patient: Ty Roper ?MR#: [id number] ?? 3 ? : 1990 ?Acct:[id number] ? Age/Sex: 33 / M ?ADM Date: 04/04/24 ? Loc: HO.HHCX ? Attending Dr: India Gifford DO ? Ordering Physician: India Gifford DO ?? Date of Service: 04/04/24 ?? Procedure(s): XR chest 2V ?? Accession Number(s): [id number] ? cc: India Gifford DO ? EXAMINATION: ??XR CHEST 2 VIEWS ? HISTORY: persistent cough and chest congestion ? COMPARISON: Comparison is made with the prior examination dated ?? 01/17/2024. ? FINDINGS: ??PA and lateral views of the chest are submitted. The left ?? subclavian dual chamber pacemaker is unchanged in position. The lungs ?? are expanded and clear. ??There is no pleural effusion, pneumothorax, or ?? pulmonary vascular congestion. ??The heart is normal in size. ??The bones ?? are intact. ? XR/XR chest 2V ?? IMPRESSION: ?? No acute cardiopulmonary abnormality. ? Electronically signed by: ??Yosef Hoffman MD ??04/04/2024 02:03 PM EST ? Dictated By: ?Yosef Hoffman MD ? Signed By: ?<Electronically signed by Yosef Hoffman MD in OV> ?04/04/24 1403 ? DD/ 1344 ? TD/TT: 04/04/24 1358 ? Convention Planner: ? Procedure Note Donotvandaisaiahter, Image - 04/04/2024 [facility] [address] [place] [address] XRay Report Signed Patient: Ty Roper CMR#: [id number] 3 : 1990Acct:[id number] Age/Sex: 33 / MADM Date: 04/04/24 Loc: HO.HHX Attending Dr: India Gifford DO Ordering Physician: India Gifford DO Date of Service: 04/04/24 Procedure(s): XR chest 2V Accession Number(s): [id number] cc: India Gifford DO EXAMINATION: XR CHEST 2 VIEWS HISTORY: persistent cough and chest congestion COMPARISON: Comparison is made with the prior examination dated 01/17/2024. FINDINGS: PA and lateral views of the chest are submitted. The left subclavian dual chamber pacemaker is unchanged in position. The lungs are expanded and clear. There is no pleural effusion, pneumothorax, or pulmonary vascular congestion. The heart is normal in size. The bones are intact. XR/XR chest 2V IMPRESSION: No acute cardiopulmonary abnormality. Electronically signed by: Yosef Hoffman MD 04/04/2024 02:03 PM EST RP Dictated By: Yosef Hoffman MD Signed By: <Electronically signed by Yosef Hoffman MD in OV> 04/04/24 1403 DD/ 1344 TD/TT: 04/04/24 1358 Convention Planner: India Gifford DO IMG XR PROCEDURES Final Resu lt * Respiratory Viral Panel PCR (01/19/2024 1:18 PM EST) Adenovirus PCR Not Detected Not Detect. [facility] Bordetella pertussis PCR Not Detected Not Detect. [facility] Comment:Interpret results wi th caution. If B. pertussis isspecifically suspected, additional testing using analternate method is recommended. Bordetella parapertussis PCR Not Detected Not Detect. [facility] Chlamydia pneumoniae PCR Not Detected Not Detect. [facility] Coronavirus 229E PCR Not Detected Not Detect. [facility] Coronavirus HKU1 PCR Not Detected Not Detect. [facility] Coronavirus NL63 PCR Not Detected Not Detect. [facility] Coronavirus OC43 PCR Not Detected Not Detect. [facility] SARS-CoV-2 PCR Not Detected Not Detect. [facility] Comment:SARS-CoV-2 not detec margaret by real-time RT-PCR.Note: If clinical suspicion for Sars-CoV-2 is high, continueto maintain precautions and consider repeat testing.Test results should be interpreted in the context ofclinical findings and other laboratory data.Rare polymorphisms exist that could lead to false-negativeor false-positive results. If results do not match theclinical findings, additional testing should be considered.Results reported to [facility].This test has been authorized by the FDA under the EmergencyUse Authorization (EUA) for use by authorized laboratories. Influenza A PCR Not Detected Not Detect. [facility] Influenza B PCR Not Detected Not Detect. [facility] Human metapneumovirus PCR Not Detected Not Detect. [facility] Rhino/Enterovirus PCR Not Detected Not Detect. [facility] Mycoplasma pneumoniae PCR Not Detected Not Detect. [facility] Parainfluenza 1 PCR Not Detected Not Detect. [facility] Parainfluenza 2 PCR Not Detected Not Detect. [facility] Parainfluenza 3 PCR Not Detected Not Detect. [facility] Parainfluenza 4 PCR Not Detected Not Detect. [facility] RSV PCR Not Detected Not Detect. [facility] Resp Panel NA Note See Note H [facility] Comment:All results must be correlated with clinical findings.Negative results should not be used as the sole basis fordiagnosis, treatment, or other management decisions.A negative result does not exclude the possibility of viralor bacterial infection. Negative results may occur from thepresence of sequence variants in the region targeted by theassay, the presence of inhibitors, an infection caused by anorganism not detected by the panel, or lower respiratorytract infections that are not detected by a nasopharyngealswab specimen. Test results may also be affected byconcurrent antiviral/antibacterial therapy or levels oforganism in the specimen that are below the limit ofdetection for this test.This assay is performed by Multiplexed PCR, utilizing [employer] Film Array. Swab 01/19/2024 1:18 PM EST 01/19/2024 5:41 PM EST us Gopal Shelley MD LAB BLOOD ORDERABLES Final Resul t Performing Organization Address [facility] Phone Number [facility] [address] [place] [phone] * Influenza B (ID NOW Rapid Molecular) (01/19/2024 11:48 AM EST) Influenza B Negative Negative, Indeterminate [facility] Swab 01/19/2024 11:4 8 AM EST us Gopal Shelley MD POINT OF CARE TEST ENTER/EDIT OR DERABLES Final Result Performing Organization Address [facility] de Phone Number [facility] [address] [place] [phone] * Influenza A (ID NOW Rapid Molecular) (01/19/2024 11:48 AM EST) Influenza A Negative Negative, Indeterminate [facility] Swab 01/19/2024 11:4 8 AM EST us Gopal Shelley MD POINT OF CARE TEST ENTER/EDIT OR DERABLES Final Result Performing Organization Address [facility] de Phone Number [facility] [address] [place] [phone] * POCT Rapid COVID Ag (01/19/2024 11:48 AM EST) Rapid COVID Ag Negative [facility] Swab 01/19/2024 11:4 8 AM EST Gopal Shelley MD POINT OF CARE TEST ENTER/EDIT OR DERABLES Final Result [facility] [address] [place] [address] [phone] * (ABNORMAL) LIPID PANEL, STANDARD (05/13/2020 2:11 PM EDT) Pathologist [facility] Chol/HDLC Ratio 4.2 <5.0 (calc) [facility] Cholesterol, Total 216(H) <200 mg/dL [facility] HDL Cholesterol 51 > OR = 40 mg/dL [facility] LDL Cholesterol 135(H) mg/dL (calc) [facility] Comment: Reference range: <100 ?? Desirable range <100 mg/dL for primary prevention; ?? <70 mg/dL for patients with CHD or diabetic patients ?? with > or = 2 CHD risk factors. ?? LDL-C is now calculated using the Star-Reno ?? calculation, which is a validated novel method providing ?? better accuracy than the Friedewald equation in the ?? estimation of LDL-C. ?? Star SS et al. IVANNA. 2013;310(19): 8665-0026 ?? (http://education.[employer]/faq/IID362) Non-HDL Cholesterol 165(H) <130 mg/dL (calc) [facility] Comment: For patients with diabetes plus 1 major ASCVD risk ?? factor, treating to a non-HDL-C goal of <100 mg/dL ?? (LDL-C of <70 mg/dL) is considered a therapeutic ?? option. Triglycerides 162(H) <150 mg/dL [facility] 05/13/2020 2:11 PM EDT us Lillian Lassiter NP LAB BLOOD ORDERABLES Final Res ult [facility] [address] from Last 3 Months or Most Recently Relevant to Health Maintenance Insurance [facility] STANDARD MEDICARE Care Teams Office Messenger Relationship Specialty Start Date End Date Anupama Rodriguez MD [address] [place] [phone] PCP - General Internal Medicine 07/01/22 Lillian Hutchins RN Care Manager 01/04/23
--- OUTSIDE RECORDS SUMMARY | 2024-04-04 16:34 | XMS_ITS | Encounter Summary ---
Author Organization [email or web address] Address [address] [place] [address] 7 [place] [address] Care Team Providers Care Electric Stove Installer Name Role Phone Anupama Rodriguez MD Primary Care Pro vider Reason for Visit * Reason Onset Date Comments Nurse Triage 01/18/2024 Encounter Details Date Type Department Care Team (Late st Contact Info) Description 01/18/2024 Telephone [facility] [address] [place] [address] Anupama Rodriguez MD [address] [place], [place] [phone] Nurse Triage Social History Tobacco Use Types Packs/Day Years Used Date Smoking Tobacco: Never Assessed Housing Stability Answer Date Recorded What is your housing situation today? I have yandygiles joiner 12/19/[address] you [...] AM EDT documented as of this encounter Miscellaneous Notes * Telephone Encounter - Sheri Anthony RN - 01/18/2024 2:00 PM EST Called pt. Via [facility] healthcare interpreter [phone] [address]. Pt. States he does not need healthcare interpreter. Called pt. Back. Pt. Wants it completely taken out of his chart that he DOES NOT NEED AN SOCIOLOGY FACULTY MEMBER FOR YI . I fixed what I could but was unable to take Needs Thermodynamicist out. Pt states that he has Bronchitis and went to urgent care in [place] a bout a week ago and got a medication called Doxycycline 100mg BID. Pt was having dizziness and it made pt. Very drowsy. Pt. Stopped taking the medication. Pt states I am very skeptical of medications I take because I have a heart condition and have been through the ringer when I got Pneumonia. 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 Pt states when they tried to remove the tube the first time it injured his throat and now he has a constant hoarseness in voice Pt states he still has bad cough productive- brown/yellow- then goes to clear. Pt gets very nervous when he gets a bad cough due to HX . No fever at present. Pt states he does get wheezing mostly at night but none at present. Pt. Will come to walk in tomorrow 01/19/24 at about 1030am. Advised that walkin does not take people by appt. I will send this note to walk in center nurses and providers that are working in Walk in tomorrow 01/19/24 so that they are aware of pt. Concerns and Anxiety over care. Pt. Also states he is unable to take cough medicines or Asthma inhaler due to his heart conditionand he gets put on steroid pills when needed. Pt may benefit from CXR if needed. Protocol Used: Cough (Adult) Protocol-Based Disposition: Go to Office or Video Visit Now Video visit not offered Positive Triage Questions: * Mild difficulty breathing (e.g., minimal/no SOB at rest, SOB with walking, pulse < 100) and still present when not coughing * Coughing up hannah-colored (reddish-brown) or blood-tinged sputum * All higher-acuity triage questions were negative Care Advice Discussed: * Reassurance and Education - Cough * Coughing Spells * Prevent Dehydration * Humidifier * Telephone Encounter - Khoa Pathak - 01/18/2024 1:57 PM EST Symptom: Breathing Trouble Outcome: Transfer to a nurse or provider NOW! Reason: Struggling for each breath (severe trouble breathing) documented in this encounter Plan of Treatment Not on file documented as of this encounter Visit Diagnoses Not on filedocumented in this encounter Care Teams Electric Stove Installer Relationship Specialty Start Date End Date Anupama Rodriguez MD [address] [place] [phone] PCP - General Internal Medicine 07/01/22 Lillian Hutchins RN Care Manager 01/04/23 documented as of this encounter
--- OUTSIDE RECORDS SUMMARY | 2024-04-04 16:34 | XMS_ITS | Encounter Summary ---
Author Organization [employer] Address [address] 7 [place] [address] Care Team Providers Care Automobile Body Repairer Helper Name Role Phone Anupama Rodriguez MD Primary Care Pro vider Reason for Visit * Reason Onset Date Comments Medication Question 04/04/2024 Encounter Details Date Type Department Care Team ([facility] st Contact Info) Description 04/04/2024 Telephone [facility] [address] [place], [place] [phone] Anupama Rodriguez MD [address] [place], [place] [phone] Medication Question Social History Tobacco Use Types Packs/Day Years Used Date Smoking Tobacco: Every Day Cigarettes Smokeless Tobacco: Never Housing Stability Answer Date Recorded What is your housing situation today? I have yandygiles jonier 12/19/[address] you li [...] encounter Miscellaneous Notes * Telephone Encounter - Yulisa Owen RN - 04/04/2024 3:01 PM EST Telephone call returned to [facility]. He states that there is a drug interaction flagged for potentially long QT interval between: azithromycin 250mg (prescribed today by Dr Gifford) & the quinidine gluconate 324mg (historicalprovider). Will route message to ordering provider Dr Gifford. * Telephone Encounter - Romero Henson - 04/04/2024 2:18 PM EST Tc from [facility] with [facility] requesting information as 2 medications have drug interactions. Please return call to [facility] [phone] documented in this encounter Plan of Treatment Not on file documented as of this encounter Visit Diagnoses Not on filedocumented in this encounter Care Teams Automobile Body Repairer Helper Relationship Specialty Start Date End Date Anupama Rodriguez MD [address] [place] [phone] PCP - General Internal Medicine 07/01/22 Lillian Hutchins RN Care Manager 01/04/23 documented as of this encounter
--- OUTSIDE RECORDS SUMMARY | 2024-04-04 16:34 | XMS_ITS | Encounter Summary ---
Author Organization [employer] Address [address] 7[address] [place] [address] Care Team Providers Care Sas Developer Analyst Name Role Phone Anupama Rodriguez MD Primary Care Pro vider Reason for Visit * Reason Onset Date Comments Results 04/04/2024 Encounter Details Date Type Department Care Team ([facility] st Contact Info) Description 04/04/2024 Telephone [facility] [address] [place], [place] [phone] India Gifford DO [address] [place], [place] [phone] Results Social History Tobacco Use Types Packs/Day Years [...] encounter Miscellaneous Notes * Telephone Encounter - Laquita Palomares RN - 04/04/2024 2:57 PM EST Call placed to patient to advise him that his chest xray was normal and there is no evidence of pneumonia. Patient verbalizes understanding and agreement with plan of care at this time. * Telephone Encounter - India Gifford DO - 04/04/2024 2:46 PM EST Please advise pt that his CXR was nml and there was no evidence of PNA. Thank you. documented in this encounter Plan of Treatment Not on file documented as of this encounter Visit Diagnoses Not on filedocumented in this encounter Care Teams Sas Developer Analyst Relationship Specialty Start Date End Date Anupama Rodriguez MD [address] [place] [phone] PCP - General Internal Medicine 07/01/22 Lillian Hutchins RN Care Manager 01/04/23 documented as of this encounter
--- OUTSIDE RECORDS SUMMARY | 2024-04-04 16:34 | XMS_ITS | Encounter Summary ---
Author Organization [employer] Address [address] [place] [address] 7 [place] [address] Care Team Providers Care Leather Piece Inspector Name Role Phone Anupama Rodriguez MD Primary Care Pro vider Encounter Details Date Type Department Care Team (Late st Contact Info) Description 08/03/2022 Orders Only [facility] [address] [place] [address] Angela Barreto RN Social History Tobacco Use Types Packs/Day Years [...] on filedocumented in this encounter Care Teams Leather Piece Inspector Relationship Specialty Start Date End Date Anupama Rodriguez MD [address] [place] [phone] PCP - General Internal Medicine 07/01/22 Lillian Hutchins RN Care Manager 01/04/23 documented as of this encounter
--- OUTSIDE RECORDS SUMMARY | 2024-04-04 16:34 | XMS_ITS | Encounter Summary ---
Author Organization [employer] Address [address] [place] [address] Care Team Providers Care Heatset Winder Operator Name Role Phone Anupama Rodriguez MD Primary Care Pro vider Reason for Visit * Reason Comments Bronchitis Encounter Details Date Type Department Care Team ([facility] st Contact Info) Description 04/04/2024 1:20 PM EST Office Visit [facility] [address] [place], [place] [id number] Chronic bronchitis, unspecified chronic bronchitis type (CMS/HCC) (Primary Dx) Social History Tobacco Use Types Packs/Day Years [...] AM EDT documented as of this encounter Last Filed Vital Signs Vital Sign Reading Time Taken Comments Blood Pressure 140/89 04/04/2024 12:59 PM EST Pulse 89 04/04/2024 12:59 PM EST Temperature 36.8 ??C (98.3 ??F) 04/04/2024 12:[address] Respiratory Rate 18 04/04/2024 12:59 PM EST Oxygen Saturation 95% 04/04/2024 12:59 PM EST Inhaled Oxygen Concentration - - Weight 118 kg (260 lb) 04/04/2024 12:59 PM EST Height - - Body Mass Index 46.06 05/13/2020 12:04 AM EDT documented in this encounter Plan of Treatment Not on file documented as of this encounter Procedures Procedure Name Priority Date/Time Associated Diagnosis Comments XR CHEST 2 VIEWS STAT 04/04/2024 1:44 PM EST Chronic bronchitis, unspecified chronic bronchitis type (CMS/HCC) documented in this encounter Results * XR Chest 2 Views (04/04/2024 1:44 PM EST) Anatomical Region Laterality Modality Chest Radiographic Vanessa ging 04/04/2024 1:44 PM EST Narrative 04/04/2024 2:06 PM EST ?[facility] ?[address] ?[place] [address] ?XRay Report ? Signed ? Patient: Judson,Ty C ?MR#: [id number] ?? 3 ? : 1990 ?Acct:[id number] ? Age/Sex: 33 / M ?ADM Date: 02/27/25 ? Loc: HO.HHCX ? Attending : India Gifford DO ? Ordering Physician: India Gifford DO ?? Date of Service: 04/04/24 ?? Procedure(s): XR chest 2V ?? Accession Number(s): [id number] ? cc: India Gifford Dave DO ? EXAMINATION: ??XR CHEST 2 VIEWS [...] ??Yosef Hoffman MD ??04/04/2024 02:03 PM EST ?? RP ? Dictated By: ?Yosef Hoffman MD ? Signed By: ?<Electronically signed by Yosef Hoffman MD in OV> ?04/04/24 1403 ? DD/ 1344 ? TD/TT: 04/04/24 1358 ? Chipper Machine Operator: ? Procedure Note Abby, Maria E - 04/04/[address] [address] XRay Report Signed Patient: Ty Roper CMR#: [id number] 3 : 1990Acct:[id number] Age/Sex: 33 / MADM Date: 04/04/24 Loc: HO.HHCX Attending Dr: India Gifford DO Ordering Physician: India Gifford DO Date of Service: 04/04/24 Procedure(s): XR chest 2V Accession Number(s): [id number] cc: India Gifford DO EXAMINATION: XR CHEST [...] 04/04/24 1403 DD/ 1344 TD/TT: 04/04/24 1358 Chipper Machine Operator: India Gifford DO IMG XR PROCEDURES Final Resu lt documented in this encounter Visit Diagnoses Diagnosis Chronic bronchitis, unspecified chronic bronchitis type (CMS/HCC)- Primary documented in this encounter Care Teams Heatset Winder Operator Relationship Specialty Start Date End Date Anupama Rodriguez MD [address] [place] [address] PCP - General Internal Medicine 07/01/22 Lillian Hutchins RN Care Manager 01/04/23 documented as of this encounter
--- OUTSIDE RECORDS SUMMARY | 2024-04-04 16:34 | XMS_ITS | Encounter Summary ---
Author Organization [employer] Address [address] [place] [address] 7 [place] [address] Care Team Providers Care Hemmer Lockstitch Name Role Phone Anupama Rodriguez MD Primary Care Pro vider Reason for Visit * Reason Onset Date Comments Nurse Triage 03/21/2024 Encounter Details Date Type Department Care Team (Late st Contact Info) Description 03/21/2024 Telephone [facility] [address] [place] [address] Anupama Rodriguez MD [address] [place], [place] [phone] Nurse Triage Social History Tobacco Use Types [...] Telephone Encounter - Sheri Anthony RN - 03/21/2024 10:19 AM EST Called pt. He states he was seen zx 1 month ago for Bronchitis. Pt still has cough and is worried that he may get Pneumonia again. Cough is productive and brown. Pt. Is starting to get SOB and has been a chronic smoker. No fever. No nasal congestion. Offered appt. For today and pt. Declines. Offered free Uber ride to appt. And pt. Declines. Pt. States he will go to [facility] walk in tomorrow. No fever.Pt. States he has a chronic history of Bronchitis that turns into Pneumonia so he Wants to get ahead of it . Advised to increase water consumption for hydration and to help clear lungs. Protocol Used: Cough (Adult) Protocol-Based Disposition: See in Office or Video Visit Today- Pt. Declines office visit today andwill go to [facility] walk in tomorrow am. Video visit offer not recorded Positive Triage Questions: * Coughing up Brown sputum. * Patient wants to be seen * All higher-acuity triage questions were negative Care Advice Discussed: * Cough Medicines * Cough Syrup With Dextromethorphan * Coughing Spells * Prevent Dehydration * Avoid Tobacco Smoke * Humidifier * Telephone Encounter - Romero Henson - 03/21/2024 10:14 AM EST Symptom: Cough Outcome: Schedule an urgent appointment (within 1 hour) or talk to a nurse or provider soon Reason: Wheezing (high-pitched whistling sound) The caller accepted this outcome. documented in this encounter Plan of Treatment Not on file documented as of this encounter Visit Diagnoses Not on filedocumented in this encounter Care Teams Hemmer Lockstitch Relationship Specialty Start Date End Date Anupama Rodriguez MD [address] [place] [address] PCP - General Internal Medicine 07/01/22 Lillian Hutchins RN Care Manager 01/04/23 documented as of this encounter
--- OUTSIDE RECORDS SUMMARY | 2024-04-04 16:34 | XMS_ITS | Clinical Summary ---
Author Organization [facility] Address [address] [place] [address] Care Team Providers Care Net Front End Developer Name Role Phone Unknown Primary Care Provider [phone] Social History Tobacco Use Types Packs/Day Years Used Date Smoking Tobacco: Never Assessed Sex and Gender Information Value Date Recorded Sex Assigned at Not on file Gender Identity Not on file Sexual Orientation Not on file Plan of Treatment Health Maintenance Due Date Last Done Comments Hepatitis C Virus Screening 1990 HIV Screening 12/17/2003 DTaP/Tdap/Td Vaccines (1 - Tdap) 2009 Hepatitis B Vaccines (1 of 3 - 19+ 3-dose series) 2009 Influenza Vaccine 09/07/2023 COVID-19 Vaccine (2023-2 5 season) 2023 HPV Vaccines Aged Out No longer eligi ble based on patient's age to complete this topic Pneumococcal Vaccine: Pediat elizabeth (0-5 Years) and At-Risk Patients (6 to 49 Years) Aged Out No longer eligible b ased on patient's age to complete this topic Care Teams Net Front End Developer Relationship Specialty Start Date End Date Unknown Unknow Provider Address PCP - General 10/24/21
== END 2024-04-04 13:43 | disposition home or self-care (01) ==
LOC: HO.HHCX 13:42
PROVIDERS: Visit Provider Family Medicine
DX: J42 Unspecified chronic bronchitis (principal)
CPT/HCPCS: 71046

== ENCOUNTER → 2024-04-04 13:44 | Outpatient (BNV) | payer MEDICARE, MEDICAID, SELFPAY | PROVIDERS: Visit Provider Radiology Diagnostic Radiology | DX: J42 Unspecified chronic bronchitis (principal) | CPT/HCPCS: 71046 ==

== ENCOUNTER 2024-06-21 13:55 | Outpatient (REF) | payer MEDICARE, MEDICAID, SELFPAY ==
--- NOTE | ~2024-06-21 | XR_ITS ---
EXAMINATION: XR CHEST CLINICAL INFORMATION: Chronic worsening cough and HEAD COMPARISON: 04/04/2024. TECHNIQUE: 2 views of the chest were obtained. FINDINGS: Left-sided dual lead AICD device in place with leads extending into the right ventricle and right atrium. The cardiac, hilar, and mediastinal contours are normal. The lungs are clear bilaterally. There is no pneumothorax or pleural effusion. There is no focal osseous or soft tissue abnormality. XR/XR chest 2V IMPRESSION: Dual lead AICD device. No active pulmonary disease. Electronically signed by: Sumit Russell MD 06/21/2024 02:10 PM EDT
--- OUTSIDE RECORDS SUMMARY | 2024-06-21 13:59 | XMS_ITS | Encounter Summary ---
Author Organization [employer] Address [address] [place] [address] Care Team Providers Care Continuous Absorption Process Operator Name Role Phone Anupama Rodriguez MD Primary Care Pro vider Reason for Visit * Reason Comments Bronchitis Encounter Details Date Type Department Care Team (Late st Contact Info) Description 06/21/2024 1:20 PM EDT Office Visit [facility] [address] [place] [address] Chronic cough (Primary Dx); Dyspnea on exertion; Excessive daytime sleepiness Social History Tobacco Use Types Packs/Day Years [...] Sign Reading Time Taken Comments Blood Pressure 129/82 06/21/2024 1:07 PM EDT Pulse 89 06/21/2024 1:07 PM EDT Temperature 36.6 ??C (97.8 ??F) 06/21/2024 1:07 PM ED T Respiratory Rate 20 06/21/2024 1:07 PM EDT Oxygen Saturation 95% 06/21/2024 1:07 PM EDT Inhaled Oxygen Concentration - - Weight 118 kg (260 lb) 06/21/2024 1:07 PM EDT Height - - Body Mass Index 46.06 05/13/2020 12:04 AM EDT documented in this encounter Plan of Treatment Scheduled Orders Name Type Priority Associated Diagnoses Orde r Schedule XR Chest 2 Views Imaging STAT Chronic cough Dyspnea on exertion Expected: 06/21/2024, Expires: 06/21/2025 documented as of this encounter Visit Diagnoses Diagnosis Chronic cough- Primary Cough Dyspnea on exertion Other dyspnea and respiratory abnormality Excessive daytime sleepiness documented in this encounter Care Teams Continuous Absorption Process Operator Relationship Specialty Start Date End Date Anupama Rodriguez MD [address] [place] [address] PCP - General Internal Medicine 07/01/22 Lillian Hutchins RN Care Manager 01/04/23 documented as of this encounter
--- OUTSIDE RECORDS SUMMARY | 2024-06-21 13:59 | XMS_ITS ---
Author Name [facility] Organization Unknown Encounters Encounter Type Encounter Reason Primary Diagnosis Location Date Ambulatory [facility] 10/24/2021 Care Team Organization Name Specialty Phone Email Start Date End Da te [facility] 10/25/2021 [facility] 10/24/2021 10/24/2021
--- OUTSIDE RECORDS SUMMARY | 2024-06-21 13:59 | XMS_ITS | Clinical Summary ---
Author Organization [facility] Address [address] [place] [address] Care Team Providers Care Health Care Consultant Name Role Phone Unknown Primary Care Provider [phone] Social History Tobacco Use Types Packs/Day Years Used Date Smoking Tobacco: Never Assessed Sex and Gender Information Value Date Recorded Sex Assigned at Not on file Legal Sex Male 12:34 PM EDT Gender Identity Not on file Sexual Orientation Not on file Plan of Treatment Health Maintenance Due Date Last Done Comments Hepatitis C Virus Screening 1990 HIV Screening 12/17/2003 DTaP/Tdap/Td Vaccines (1 - Tdap) 2009 Hepatitis B Vaccines (1 of 3 - 19+ 3-dose series) 2009 COVID-19 Vaccine ( - 2023-2 5 season) 2023 Influenza Vaccine 09/06/2024 HPV Vaccines Aged Out No longer eligi ble based on patient's age to complete this topic Pneumococcal Vaccine: Pediat elizabeth (0-5 Years) and At-Risk Patients (6 to 49 Years) Aged Out No longer eligible b ased on patient's age to complete this topic Insurance MEDICARE PART A & B MEDICAID OUT OF STATE [facility] Care Teams Health Care Consultant Relationship Specialty Start Date End Date Unknown Unknow Provider Address PCP - General 10/24/21
--- OUTSIDE RECORDS SUMMARY | 2024-06-21 13:59 | XMS_ITS | Clinical Summary ---
Author Organization [employer] Address [address] [place] [address] 7t [place] [address] Care Team Providers Care Entry Level Sales Associate Name Role Phone Anupama Rodriguez MD Primary Care Pro vider Allergies Active Allergy Reactions Criticality Noted Date Comments Prednisone Palpitations High 05/08/2024 Patient hospitalized for exacerbation of ventricular fibrillation after taking prednisone; confirmed by hotshot superintendent Shrimp Extract 03/10/2015 Medications acyclovir (Zovirax) 400 [...] skin every 7 (seven) days. 12/21/2023 Active azithromycin (Zithromax) 250 MG tablet Take two tabs PO daily x one day then one tab PO daily x four days 6 tablet 04/04/2024 Active Active Problems Patient Care Coordination No te Formatting of this note migh t be different from the original. C3/CM Lillian Hutchins RN Problem Noted Date Diagnosed Date Tobacco dependence 01/19/2024 Chronic hoarseness 12/13/2021 Anxiety disorder 05/13/2020 Genital herpes simplex 05/13/2020 Cardiomyopathy 05/03/2016 S/P ICD (internal cardiac defibrillator) procedu re 05/03/2016 Encounters Date Type Department Care Team Description 06/21/2024 1:20 PM EDT Office Visit [facility] [address] [address] Chronic cough (Primary Dx); Dyspnea on exertion; Excessive daytime sleepiness 05/08/[address] [address] Anupama Rodriguez MD 05/08/2024 Travel 05/08/[address] [address] Anupama Rodriguez MD 04/24/[address] [address] Anupama Rodriguez MD July04/22/[address] [address] Anupama Rodriguez MD ER Follow-up 04/04/2024 1:20 PM EST Office Visit [facility] [address] [address] India Gifford DO Chronic bronchitis, unspecified chronic bronchitis type (CMS/HCC) (Primary Dx) 04/04/2024 [facility] [address] [address] India Gifford DO Results 04/04/[address] [address] Anupama Rodriguez MD Medication Question from Last 3 Months Immunizations Immunization Administration Dates Next Due Influenza, seasonal, injectable, [...] (260 lb) 06/21/2024 1:07 PM EDT Height 160 cm (5' 3 ) 05/13/2020 [...] 02/27/2016 SDOH Screening 12/20/2023 12/19/2022 Tobacco Screening 04/04/2025 04/04/2024 Lipid Panel 05/13/2025 05/13/2020 Zoster Vaccines (1 of 2) 2040 RSV Patients and Patients Aged 60 years or older (1 - 1-dose 75+ series) 2065 HIB Vaccines Aged Out No longer eligi ble based on patient's age to complete this topic HPV Vaccines Aged Out No longer eligi ble based on patient's age to complete this topic Hepatitis A Vaccines Aged Out No long er eligible based on patient's age to complete this topic IPV Vaccines Aged Out No longer eligi ble based on patient's age to complete this topic Meningococcal B Vaccine Aged Out No l onger eligible based on patient's age to complete [...] Chronic bronchitis, unspecified chronic bronchitis type (CMS/HCC) LIPID PANEL, STANDARD Routine 05/13/2020 2:11 PM EDT from Last 3 Months or Most Recently Relevant to Health Maintenance Results * XR Chest 2 Views (04/04/2024 1:44 PM EST) Anatomical Region Laterality Modality Chest Radiographic Vanessa ging 04/04/2024 1:44 PM EST Narrative 04/04/2024 2:06 PM EST ?[facility] ?[address] ?[place] [address] ?XRay Report ? Signed ? Patient: Roper,Ty C ?MR#: [id number] ?? 3 ? : 1990 ?Acct:[id number] ? Age/Sex: 33 / M ?ADM Date: 04/04/24 ? Loc: HO.HHCX ? Attending Dr: India Gifford DO ? Ordering Physician: India Gifford DO ?? Date of Service: 04/04/24 ?? Procedure(s): XR chest 2V ?? Accession Number(s): [id number] ? cc: India Gifford DO ? EXAMINATION: [...] DD/ 1344 ? TD/TT: 04/04/24 1358 ? Assembler Billiard Table: ? Procedure Note Abby, Image - 04/04/[address] [address] XRay Report Signed Patient: Ty Roper CMR#: [id number] 3 : 1990Acct:[id number] Age/Sex: 33 / MADM Date: 04/04/24 Loc: .HHCX Attending Dr: India Gifford DO Ordering Physician: India Gifford DO Date of Service: 04/04/24 Procedure(s): XR chest 2V Accession Number(s): [id number] cc: India Gifford DO EXAMINATION: XR CHEST [...] 04/04/24 1403 DD/ 1344 TD/TT: 04/04/24 1358 Assembler Billiard Table: India Gifford DO IMG XR PROCEDURES Final Resu lt * (ABNORMAL) LIPID PANEL, STANDARD (05/13/2020 2:11 PM EDT) Chol/HDLC Ratio 4.2 <5.0 (calc) [facility] [...] ?? LDL-C is now calculated using the Raheel ?? calculation, which is a validated novel method providing ?? better accuracy than the Friedewald equation in the ?? estimation of LDL-C. ?? Star PERSON et al. IVANNA. 2013;310(19): 1441-6650 ?? (http://education.mVisum/faq/GBK361) Non-HDL Cholesterol 165(H) <130 mg/dL (calc) [facility] Comment: For patients with diabetes plus 1 major ASCVD risk ?? factor, treating to a non-HDL-C goal of <100 mg/dL ?? (LDL-C of <70 mg/dL) is considered a therapeutic ?? option. Triglycerides 162(H) <150 mg/dL [facility] 05/13/2020 2:11 PM EDT us Lillian Lassiter NP LAB BLOOD ORDERABLES Final Res ult [facility] [address] from Last 3 Months or Most Recently Relevant to Health Maintenance [place] [address] [place] [address] STANDARD MEDICARE Care Teams Entry Level Sales Associate Relationship Specialty Start Date End Date Anupama Rodriguez MD [address] [place] [address] PCP - General Internal Medicine 07/01/22 Lillian Hutchins RN Care Manager 01/04/23
--- OUTSIDE RECORDS SUMMARY | 2024-06-21 13:59 | XMS_ITS | Encounter Summary ---
Author Organization [employer] Address [address] [facility] 7 [place] [address] Care Team Providers Care Commercial Crabber Name Role Phone Anupama Rodriguez MD Primary Care Pro vider Reason for Visit * Reason Onset Date Comments Nurse Triage 01/18/2024 Encounter Details Date Type Department Care Team ([facility] st Contact Info) Description 01/18/2024 Telephone [facility] [address] [place] [address] Anupama Rodriguez MD [address] [place] [address] Nurse Triage Social History Tobacco Use Types [...] 01/18/2024 2:00 PM EST Called pt. Via [facility] mangle tender cloth [phone] [address]. Pt. States he does not need mangle tender cloth. Called pt. Back. Pt. Wants it completely taken out of his chart that he DOES NOT NEED AN TEAM ASSEMBLER FOR SW[employer] . I fixed what I could but was unable to take Needs Roll Cutting Operator out. Pt states that he has Bronchitis and went to urgent care in [place] a bout a week ago and got [...] filedocumented in this encounter Care Teams Commercial Crabber Relationship Specialty Start Date End Date Anupama Rodriguez MD [address] [place] [address] PCP - General Internal Medicine 07/01/22 Lillian Hutchins RN Care Manager 01/04/23 documented as of this encounter
--- OUTSIDE RECORDS SUMMARY | 2024-06-21 13:59 | XMS_ITS | Encounter Summary ---
Author Organization [employer] Address [address] [place] [address] 7t [place] [address] Care Team Providers Care Retail Bakery Manager Name Role Phone Anupama Rodriguez MD Primary Care Pro vider Encounter Details Date Type Department Care Team (Late st Contact Info) Description 08/03/2022 Orders Only [facility] MED[facility] [address] [place] [address] Angela Barreto RN Social History Tobacco Use [...] on filedocumented in this encounter Care Teams Retail Bakery Manager Relationship Specialty Start Date End Date Anupama Rodriguez MD [address] [place] [address] PCP - General Internal Medicine 07/01/22 Lillian Hutchins RN Care Manager 01/04/23 documented as of this encounter
--- OUTSIDE RECORDS SUMMARY | 2024-06-21 13:59 | XMS_ITS | Encounter Summary ---
Author Organization [employer] Address [address] [place] [address] [place] [address] Care Team Providers Care Bus And Sys Integration Senior Manager Name Role Phone Tomasa Gregg Primary Care Provider [phone] Anupama Rodriguez MD Primary Care Pro vider Encounter Details Date Type Department Care Team (Late st Contact Info) Description 02/02/2022 Telephone [facility] MEDICINE [address] [place] [phone] Tomasa Gregg FNP [address] [place] [address] Dept [place] [address] Social History Tobacco Use Types Packs/Day Years [...] on filedocumented in this encounter Care Teams Bus And Sys Integration Senior Manager Relationship Specialty Start Date End Date Tomasa Gregg FNP PCP - General Family Medicine 07/30/21 06/30/22 Anupama Rodriguez MD [address] [place] [address] PCP - General Internal Medicine 07/01/22 Lillian Hutchins RN Care Manager 01/04/23 documented as of this encounter
== END 2024-06-21 13:56 | disposition home or self-care (01) ==
LOC: HO.HHCX 13:55
PROVIDERS: Visit Provider Internal Medicine
DX: R05.3 Chronic cough (principal); R06.09 Other forms of dyspnea
CPT/HCPCS: 71046

== ENCOUNTER → 2024-06-21 13:57 | Outpatient (BNV) | payer MEDICARE, MEDICAID, SELFPAY | PROVIDERS: Visit Provider Radiology Diagnostic Radiology | DX: R05.3 Chronic cough (principal) | CPT/HCPCS: 71046 ==

== ENCOUNTER 2024-11-14 14:07 | Emergency (ER) | payer MEDICARE, MEDICAID, SELFPAY ==
--- NOTE | ~2024-11-14 | XR_ITS ---
EXAMINATION: XR CHEST CLINICAL INFORMATION: CP, productive cough COMPARISON: X-ray 06/21/2024 TECHNIQUE: 2 views of the chest were obtained. FINDINGS: Left-sided AICD device with leads extending to the right atrium and right ventricle. Cardiomediastinal silhouette is within normal limits. Mild bibasilar bronchovascular crowding.. No dense consolidation. No effusion. No pulmonary edema. No pneumothorax. No acute osseous findings. XR/XR chest 2V IMPRESSION: No focal consolidation. Electronically signed by: Cong Calle MD 11/14/2024 02:57 PM EDT
--- NOTE | 2024-11-14 14:12 | ECG_ITS ---
Test Reason : cp Blood Pressure : */* mmHG Vent. Rate : 89 BPM Atrial Rate : 89 BPM P-R Int : 186 ms QRS Dur : 142 ms QT Int : 414 ms P-R-T Axes : 37 -59 38 degrees QTcB Int : 503 ms AV dual-paced rhythm Abnormal ECG When compared with ECG of 05-May-2022 12:51, No significant change was found Referred By: Krissy Segura Electronically Signed By: ROOSEVELT RAMOS MD
[2024-11-14 14:16] VITALS: BP 125/82; PULSE 90; RESP 20; TEMP 36; O2SAT 97; BMI 46.1
--- NOTE | 2024-11-14 14:23 | ED_ITS ---
HPI - General Adult General Chief complaint: Dyspnea Stated complaint: Heart palpitations, heaviness in lungs Time Seen by Provider: 11/14/24 16:44 Source: patient Mode of arrival: ambulatory Limitations: no limitations History of Present Illness ED Provider: Jolanta Cavazos PA-C HPI narrative: Patient is a 33 year old assigned male at with a history of sustained v- tach requiring an ICD presenting to the emergency department today with palpitations and a cough. Patient states that he was playing [employer] - a [employer] game, when he began to have palpitations. Patient states that he has also had a cough. Patient states that his defibrillator did not go off. Patient denies any other complaints at this time. Related Data Home Medications ?Medication ?Instructions ?Recorded ?Confirmed lorazepam 1 mg tablet 1 tab PO DAILY PRN Anxiety 0 10/23/21 10/23/21 nadolol 80 mg tablet 1 tab PO BID 10/23/21 quinidine gluconate 324 mg 1 tab PO TID 10/23/2110/23 tablet,extended release Previous Rx's ?Medication ?Instructions ?Recorded lidocaine (PF) 100 mg/5 mL (2 %) 113.398 mg (5.6699 mL ) IV Q15M PRN 10/24/21 intravenous syringe Heart Rate >300 #50 mL lidocaine (PF) 8 mg/mL (0.8 %) in 2,000 mg continuous IV infusion 10/24/21 5 % dextrose intravenous solution .[id number] #6,000 mL amoxicillin 875 mg-potassium 1 tab PO BID 7 days #14 t abs 05/05/22 clavulanate 125 mg tablet benzonatate 100 mg capsule 100 mg PO TID PRN cough #14 caps 12/23/22 prednisone 20 mg tablet 40 mg (2 x 20 mg) PO DAILY 5 days 12/23/22 #10 tabs omeprazole 40 mg capsule,delayed 40 mg PO DAILY #14 ca ps 04/11/23 release ondansetron 4 mg disintegrating 4 mg PO Q8-12H PRN [place] and 04/11/23 tablet vomiting #7 tabs Allergies Allergy/AdvReac Type Severity Reaction Status Date / Time shrimp (SHRIMP) Allergy Severe SWELLING Verified 11/14/24 14:26 DUST Allergy Unknown UNKNOWN Uncoded 04/11/23 00:23 shrimps Allergy Unknown Anaphylaxis Uncoded 04/11/23 00:23 Review of Systems 2 Constitutional: Constitutional: Reports as per HPI Eyes: Eyes: Reports as per HPI ENT: Reports as per HPI Cardiovascular: Cardiovascular: Reports as per HPI Respiratory: Respiratory: Reports as per HPI Gastrointestinal: Gastrointestinal: Reports as per HPI Genitourinary: Genitourinary: Reports as per HPI Musculoskeletal: Musculoskeletal: Reports as per HPI Integumentary/Breasts: Skin/Breast: Reports as per HPI Neurologic: Reports as per HPI Psychiatric: Psychiatric: Reports as per HPI Endocrine: Endocrine: Reports as per HPI Hematologic/Lymphatic: Hematologic/Lymphatic: Reports as per HPI Allergic/Immunologic: Allergic/Immunologic: Reports as per HPI [facility] Past Medical History Attestation statement: The following information was validated with the patient. Source: old records reviewed and nursing notes reviewed Medical History Cardiac defibrillator in place Family History Family History Other Family history non-contributory Social History Social History Household Members: Family Substance Use Type: Marijuana Advance Directives: No Advance Directives Information Provided: Yes Do you have a plan to hurt others: No Plan Physical Exam ED Vital Signs: Vital Signs - 24 hr 11/14/24 14:16 11/14/24 16:54 Temperature 96.8 F 97 F Pulse Rate 90 85 Respiratory Rate 20 20 Blood Pressure 125/82 118/85 Pulse Oximetry 97 98 Oxygen Delivery Method Room Air Room Air BMI result Body Mass Index 46.1 Const General: cooperative, no acute distress, alert and awake Nutritional Appearance: well nourished Orientation/consciousness: patient oriented x3 HENMT Head: Yes normal to inspection and Yes atraumatic Ears: hearing grossly normal bilaterally and external ears normal General nose exam: Normal external nose present, no nasal discharge noted and no epistaxis Face and sinus: Yes normal facial exam, No abrasion and No laceration Mouth: Normal oral and palatal mucosa present, no drooling and no muffled voice Eyes General: appearance normal, both eyes and all related structures Periorbital: periorbital findings normal Eyelids: Yes eyelids normal Conjunctivae: conjunctivae normal Pupils: Equal, round and reactive pupils present EOM: EOMs intact bilaterally Neck Neck: Yes normal visual inspection and Yes full ROM Resp Effort & Inspection: normal respiratory effort and able to speak in complete sentences Neuro General: patient oriented x3, moves all extremities and CN's II-XI intact bilaterally Cranial nerves: Yes Equal, round and reactive pupils present Cognition (Neuro): normal cognition Extrem General: Yes normal to inspection, Yes full ROM and Yes capillary refill normal Psych Appearance: grossly normal Mental Status: mental status grossly normal Affect: normal affect Attitude: cooperative Thought process: Normal thought process present Thought content: Normal thought content present Insight: Good insight present (Psych) Course Course Course Narrative: This is a rapid medical exam performed by Sheryl Segura NP: Additional HPI, ROS, PE not included below will be deferred to primary provider. Patient is a 33y/o M with AICD presenting with complaint of shortness of breath, headache, and palpitations for a few days. Reports productive cough. Plan: EKG, viral swabs, labs, cxr Medical Decision Making Medical Decision Making MDM Narrative: Patient is a 33 year old assigned male at with a history of sustained v- tach requiring an ICD presenting to the emergency department today with palpitations and a cough. Patient's physical exam was unremarkable. Patient's blood work was unremarkable. Patient's EKG was unremarkable and consistent with his previous. Patient's chest x-ray showed no acute process. Patient's clinical presentation is most consistent with a viral illness / cough and palpitations. I explained my physical exam findings as well as all test results to the patient. I answered all questions asked by the patient. Patient stated that he had no interest in being admitted to the hospital or continued to be monitored and would rather follow up with his roustabout head on an outpatient basis. Given the patient's negative work up and no recurrence of symptoms in the department, I believe this is reasonable. I stressed the importance of the patient taking his medication as directed (either prescribed or as the over the counter packaging recommends). I stressed the importance of the patient following up with his primary care provider and his roustabout head. I stressed the importance of the patient returning to the emergency department immediately if his symptoms were to worsen or if he were to develop any dizziness, shortness of breath, difficulty breathing, chest pain, blurry vision, loss of vision, nausea, vomiting, abdominal pain, fever, chills, back pain, or any other complaints. Patient verbalized agreement and understanding with this treatment plan and discharge. Differential Diagnosis Differential Diagnoses: The differential diagnosis associated with the presentation includes Palpitations Viral illness Admission/Observation Consideration of admission/observation: Escalation of care including admission/observation considered Patient would have been admitted to the hospital had his work up had any findings where hospital admission was appropriate and his clinical presentation warranted hospital admission. Lab Data [facility] Lab Attestation statement: I reviewed the patient's lab results. My interpretation of these results are in the [facility] Rationale portion of this note. 11/14/24 14:37 11/14/24 14:37 Labs: Lab Results 11/14/24 Range/Units 14:37 WBC 7.7 (4.8-10.8) X10*3/uL RBC 5.27 (4.60-5.80) X10*6/uL Hgb 15.2 (14.0-18.0) g/dl Hct 46.8 (42.0-52.0) % MCV 88.8 (80.0-98.0) fL MCH 28.8 (27.0-33.0) pg MCHC 32.5 (31.0-36.0) g/dl RDW 14.4 (11.0-16.0) % Plt Count 196 (160-400) X10*3/uL MPV 9.8 (9.4-12.4) fL Immature Gran % (Auto) 0.3 (0.0-0.4) % Neut % (Auto) 55.8 (45-73) % Lymph % (Auto) 31.4 (20-40) % Garza % (Auto) 8.1 (2-11) % Eos % (Auto) 3.9 (0-4) % Baso % (Auto) 0.5 (0-2) % Lymph # (Auto) 2.4 (1.2-4.9) X10*3/uL Garza # (Auto) 0.6 (0.1-1.2) X10*3/uL Eos # (Auto) 0.3 (0.0-0.4) X10*3/uL Baso # (Auto) 0.0 (0.0-0.2) X10*3/uL Abs Immat Gran (auto) 0.02 (0.00-0.03) X10*3/uL Absolute Neuts (auto) 4.3 (2.0-8.3) x10*3/uL Absolute Nucleated RBC 0.000 (0.0-0.012) X10*3/uL Nucleated RBC % (auto) 0.0 (0.0-0.2) /100WBC PT 12.5 H (10.9-12.4) SEC INR 1.1 (0.9-1.1) Sodium 143 (135-145) mmol/L Potassium 4.1 (3.3-5.1) mmol/L Chloride 110 H (96-108) mmol/L Carbon Dioxide 23 (22-29) mmol/L Anion Gap 14 (12-20) BUN 15 (9-16) mg/dL Creatinine 0.82 (0.5-1.4) mg/dL Estim Creat Clear Calc 147.3 Estimated GFR > 60 Random Glucose 102 (60-115) mg/dL Calcium 9.2 D (8.4-10.2) mg/dL Magnesium 1.9 (1.6-2.6) mg/dL Total Bilirubin 0.5 (0.0-1.0) mg/dL AST 20 (5-37) U/L ALT 32 (0-40) U/L Alkaline Phosphatase 72 (39-117) U/L Troponin I High Sens < 2.7 (<3.5-35.0) ng/L NT-Pro-B Natriuret Pep 40.6 (<300) pg/mL Total Protein 6.7 (6.5-8.0) g/dL Albumin 4.2 (3.5-5.0) g/dL COVID-19 (TAMMI) Negative (Negative) COVID-19 Clin Com See Note Influenza Type A (PIO) Negative (Negative) Influenza Type B (PIO) Negative (Negative) Influenza A & B Note See Note Independent Interpretation I performed an independent interpretation of an: EKG and Plain X-Ray Interpretation: My interpretation is in agreement with the radiologist's impression of this imaging study. L Reason for Exam: CP, productive cough EXAMINATION: XR CHEST CLINICAL INFORMATION: CP, productive cough COMPARISON: X-ray 06/21/2024 TECHNIQUE: 2 views of the chest were obtained. FINDINGS: Left-sided AICD device with leads extending to the right atrium and right ventricle. Cardiomediastinal silhouette is within normal limits. Mild bibasilar bronchovascular crowding.. No dense consolidation. No effusion. No pulmonary edema. No pneumothorax. No acute osseous findings. XR/XR chest 2V IMPRESSION: No focal consolidation. Electronically signed by: Cong Calle MD 11/14/2024 02:57 PM EDT RP Dictated By: Cong Calle MD Signed By: Electronically signed by Cong Calle MD 11/14/24 1457 I independently interpreted this EKG and am in agreement with the below findings: Vent. Rate: 89 BPM Atrial Rate: 89 BPM P-R Int: 186 ms QRS Dur: 142 ms QT Int: 414 ms P-R-T Axes: 37 -59 38 degrees QTcB Int: 503 ms AV dual-paced rhythm When compared with ECG of 05-May-2022 12:51, No significant change was found DD/ 1420 Radiology Impression Discussion of test interpretation with radiology: I have reviewed the radiologist's reading. Discharge Plan Discharge Clinical Impression: Heart palpitations, Cough Patient Disposition: Home, Self-Care Instructions: Heart Palpitations (DC) Additional Instructions: Your work up today was reassuring there is no EMERGENT cause for your symptoms. Given your history - you should absolutely follow up with your roustabout head. IF you are prescribed home medications and/or you are taking over the counter medications at home - it is very important you continue to do so as prescribed / directed unless told otherwise. Follow up with your primary care provider. Return to the emergency department immediately if your symptoms worsen or if you develop any numbness, tingling, dizziness, shortness of breath, difficulty breathing, chest pain, blurry vision, loss of vision, nausea, vomiting, abdominal pain, fever, chills, back pain, or any other complaints. L If you do not have a primary care provider - call any of the below numbers to establish and follow up with a primary care provider. [facility] Primary Care ([place]) [phone] [place] [address] [place], [address] [facility] Primary Care ([address] [place]) [phone] [address] [facility], [address] [facility], [address] [facility] Primary Care ([address] [place]) [phone] [place] [address], [address] [facility], [address] [facility] Primary Care ([place]) [phone] [place] [address] [address] [facility], [address] [facility] Family Medicine [phone] [address] [facility], [address] Please see the information below about our Patient Portal. If you are not yet enrolled in the [facility] Patient Portal, you will receive an enrollment email invitation following your visit to any [facility] setting. You may also self-enroll in the Patient Portal by visiting our website: [email or web address] The following information is required to access the Patient Portal: - Your [facility] Medical Record Number - Your personal home email address (must match what is in your electronic medical record, Registration staff can assist with this) - Name - Date of Capabilities of the Patient Portal: - Message some providers - View upcoming appointments - Access your health summary, medical history, and visit history - View current conditions and allergies - View procedure and lab results - View your medications, including guidelines, side effects, and precautions - Complete pre-appointment questionnaires requested by your provider - Ready summary reports of your office visits and procedures To access the Patient Portal Mobile [employer], follow these directions: - Search Michael Bieker in the [employer] Store or [employer] Store - Download the Divya - Search for [facility] - Enter your login/password Prescriptions: No Action nadolol 80 mg tablet 1 tab PO BID quinidine gluconate 324 mg tablet extended release 1 tab PO TID lorazepam 1 mg tablet 1 tab PO DAILY PRN (Reason: Anxiety) lidocaine in 5 % dextrose (PF) 8 mg/mL (0.8 %) Parenteral Solution 2,000 mg continuous IV infusion .[id number] Qty: 6000 0RF lidocaine (PF) 100 mg/5 mL (2 %) Syringe 113.398 mg IV Q15M PRN (Reason: Heart Rate >300) Qty: 50 0RF amoxicillin-pot clavulanate 875-125 mg tablet 1 tab PO BID 7 Days Qty: 14 0RF benzonatate 100 mg capsule 100 mg PO TID PRN (Reason: cough) Qty: 14 0RF prednisone 20 mg tablet 40 mg PO DAILY 5 Days Qty: 10 0RF ondansetron 4 mg tablet,disintegrating 4 mg PO Q8-12H PRN (Reason: nausea and vomiting) Qty: 7 0RF omeprazole 40 mg capsule,delayed release(DR/EC) 40 mg PO DAILY Qty: 14 0RF Interventions: ED Discharge Assessment Last Done: 11/14/24 16:55 Print Language: Armenian
[2024-11-14 14:46] LABS: MANUAL DIFF FLAG NO
[2024-11-14 14:47] LABS: Hematocrit 46.8 % (42.0-52.0); Hemoglobin 15.2 g/dl (14.0-18.0); Imm Gran Abs Auto 0.02 X10*3/uL (0.00-0.03); Imm Gran Pct Auto 0.3 % (0.0-0.4); Lymphocytes Absolute Auto 2.4 X10*3/uL (1.2-4.9); Mean Corpuscular HGB Conc 32.5 g/dl (31.0-36.0); Mean Corpuscular Hemoglobin 28.8 pg (27.0-33.0); Mean Corpuscular Volume 88.8 fL (80.0-98.0); NRBC Abs Auto 0.000 X10*3/uL (0.0-0.012); NRBC Pct Auto 0.0 /100WBC (0.0-0.2); Platelet Count 196 X10*3/uL (160-400); Red Blood Count 5.27 X10*6/uL (4.60-5.80); White Blood Count 7.7 X10*3/uL (4.8-10.8)
[2024-11-14 14:54] LABS: INTERNATIONAL NORM RATIO 1.1 (0.9-1.1); Prothrombin Time 12.5 SEC (10.9-12.4)
[2024-11-14 15:08] LABS: COVID-19 Test Negative (Negative); IDNOW Serial# 55D5AD1C
[2024-11-14 15:10] LABS: IDNOW Serial# 08D9AD1C; Influenza B2 Negative (Negative)
[2024-11-14 15:37] LABS: Troponin-I High Sensitivity < 2.7 ng/L (<3.5-35.0)
[2024-11-14 16:37] LABS: Alanine Aminotransferase 32 U/L (0-40); Albumin Level 4.2 g/dL (3.5-5.0); Alkaline Phosphatase 72 U/L (39-117); Anion Gap 14 (12-20); Aspartate Amino Transferase 20 U/L (5-37); Blood Urea Nitrogen 15 mg/dL (9-16); Calcium 9.2 mg/dL (8.4-10.2); Carbon Dioxide 23 mmol/L (22-29); Chloride 110 mmol/L (96-108); Creatinine Clr Calc Pharmacy 147.3; Estimated Glomerular Filt Rate > 60; Magnesium 1.9 mg/dL (1.6-2.6); Potassium 4.1 mmol/L (3.3-5.1); Sodium 143 mmol/L (135-145); Total Protein 6.7 g/dL (6.5-8.0)
[2024-11-14 16:52] LABS: NT Pro B Type Natriuretic Pept 40.6 pg/mL (<300)
[2024-11-14 16:54] VITALS: BP 118/85; PULSE 85; RESP 20; TEMP 36.1; O2SAT 98
[2024-11-14 16:55] VITALS: BP 118/85; PULSE 85; RESP 20; TEMP 36.1; O2SAT 98
== END 2024-11-14 16:56 | disposition home or self-care (01) ==
PROVIDERS: Registered Nurse Emergency; Emergency Provider Emergency Medicine
DX: R00.2 Palpitations (principal); R05.9 Cough, unspecified; Z95.810 Presence of automatic (implantable) cardiac defibrillator
CPT/HCPCS: 36415; 71046; 80053; 83735; 83880; 84484; 85025; 85610; 87502; 87635; 93005; 99283; 99284

== ENCOUNTER → 2024-11-14 14:12 | Outpatient (BNV) | payer MEDICARE, MEDICAID, SELFPAY | PROVIDERS: Emergency Provider Emergency Medicine; Visit Provider Internal Medicine Cardiovascular Disease | DX: R94.31 Abnormal electrocardiogram [ECG] [EKG] (principal); Z95.0 Presence of cardiac pacemaker | CPT/HCPCS: 93010 ==

== ENCOUNTER → 2024-11-14 14:25 | Outpatient (BNV) | payer MEDICARE, MEDICAID, SELFPAY | PROVIDERS: Visit Provider Radiology Diagnostic Ultrasound | DX: R07.9 Chest pain, unspecified (principal); R05.9 Cough, unspecified | CPT/HCPCS: 71046 ==